=== PATIENT | female | born 1950 | race Two or more races ===

== ENCOUNTER 2021-12-04 07:28 | Inpatient (IN) | payer MEDICARE, OTHER ==
[~2021-12-04] VITALS: Ht 180.3 cm; Wt 74.4 kg
[2021-12-04 11:00] VITALS: BP 97/65
[2021-12-04] MEDS ORDERED: MAG HYDROX/AL HYDROX/SIMETH 30 ML UDC PO PRN (11:00)
[2021-12-04] MEDS ORDERED: BLOOD SUGAR DIAGNOSTIC 1 EACH STRIP IN ONE (11:00)
[2021-12-04] MEDS ORDERED: MAGNESIUM HYDROXIDE 30 ML UDC PO PRN (11:00)
[2021-12-04] MEDS ORDERED: CALC1TAB30 PO (11:07)
[2021-12-04] MEDS ORDERED: VOLTAREN GEL TP (11:07)
[2021-12-04] MEDS ORDERED: BISA-79 PO (11:07)
[2021-12-04] MEDS ORDERED: ERGO500040 PO (11:07)
[2021-12-04] MEDS ORDERED: FAMO20TA8 PO (11:07)
[2021-12-04] MEDS ORDERED: DORZ10DR13 EACHEYE (11:07)
[2021-12-04] MEDS ORDERED: ASPI-1169 PO (11:07)
[2021-12-04] MEDS ORDERED: SIMV20TA2 PO (11:07)
[2021-12-04] MEDS ORDERED: OXYB-58 PO (11:07)
[2021-12-04] MEDS ORDERED: DOCU-141 PO (11:07)
[2021-12-04] MEDS ORDERED: SERT50TA PO (11:07)
[2021-12-04] MEDS ORDERED: THYR60TA2 PO (11:07)
[2021-12-04] MEDS ORDERED: ZOLP5TAB8 PO (11:07)
[2021-12-04] MEDS ORDERED: HYDR-3980 PO (11:07)
[2021-12-04] MEDS ORDERED: OMEP40CA21 PO (11:07)
[2021-12-04] MEDS ORDERED: BRIM5DRO2 OP (11:07)
[2021-12-04] MEDS ORDERED: KETO5DRO83 LEFTEYE (11:07)
[2021-12-04] MEDS ORDERED: FURO-144 PO (11:07)
[2021-12-04] MEDS ORDERED: ESCI20TA PO (11:19)
[2021-12-04] MEDS ORDERED: METF-440 PO (11:19)
[2021-12-04] MEDS ORDERED: LINA145C PO (11:19)
[2021-12-04] MEDS ORDERED: LISI20TA30 PO (11:19)
[2021-12-04] MEDS ORDERED: LORA-259 PO (11:19)
[2021-12-04] MEDS ORDERED: CARV3.12 PO (11:19)
[2021-12-04] MEDS ORDERED: DIVA-78 PO (11:19)
[2021-12-04 11:32] VITALS: BP 97/65
[2021-12-04 16:00] VITALS: BP 111/65
[2021-12-04 19:54] VITALS: BP 104/64
[2021-12-04 20:01] VITALS: BP 104/64
[2021-12-04] MEDS: LORAZEPAM 0.5 MG TABLET PO PRN (20:56)
[2021-12-04] MEDS: ZOLPIDEM TARTRATE 5 MG TABLET PO PRN (23:32)
[2021-12-05 08:00] VITALS: BP 110/65
[2021-12-05] MEDS: LORAZEPAM 0.5 MG TABLET PO PRN (08:08)
[2021-12-05 08:21] LABS: CHOLESTEROL 178 mg/dL (<200); HDL CHOLESTEROL 51 mg/dL (40-60); LDL 106 mg/dL (0-99); TRIGLYCERIDES 98 mg/dL (30-150)
[2021-12-05 09:27] LABS: ALBUMIN 3.2 g/dL (3.4-5.0); BILIRUBIN,TOTAL 0.3 mg/dL (0.2-1.0); CALCIUM, SERUM 8.6 mg/dL (8.5-10.1); CREATININE 0.8 mg/dL (0.6-1.3); POTASSIUM 3.8 mmol/L (3.5-5.1); TOTAL PROTEIN, SERUM 6.5 g/dL (6.4-8.2)
[2021-12-05] MEDS ORDERED: VOLTAREN TP SCH (13:00)
[2021-12-05] MEDS: FUROSEMIDE 40 MG TABLET PO SCH (13:00)
[2021-12-05] MEDS: DIVALPROEX SODIUM 250 MG TABLET.DR PO SCH ×2 (13:01→16:28)
[2021-12-05 16:00] VITALS: BP 127/87
[2021-12-05] MEDS: TIMOLOL MAL/DORZOLAM HCL OPHTH 10 ML BOTTLE EACHEYE SCH (16:27)
[2021-12-05] MEDS: CARVEDILOL 3.125 MG TABLET PO SCH (16:27)
[2021-12-05] MEDS: DOCUSATE SODIUM 100 MG CAPSULE PO SCH (16:28)
[2021-12-05] MEDS: FAMOTIDINE (20 MG) 20 MG TABLET PO SCH (16:28)
[2021-12-05] MEDS: METFORMIN 500 MG TABLET PO SCH (18:22)
[2021-12-05 20:50] VITALS: BP 124/77
[2021-12-05] MEDS: OXYBUTYNIN CHLORIDE ER 5 MG TAB PO SCH (21:34)
[2021-12-05] MEDS: SIMVASTATIN 20 MG TABLET PO SCH (21:34)
[2021-12-05] MEDS: ZOLPIDEM TARTRATE 5 MG TABLET PO PRN (21:50)
[2021-12-05] MEDS ORDERED: Medication Not On Formulary EA (Linaclotide (Linzess) 145 MCG) PO SCH (22:00)
[2021-12-05] MEDS ORDERED: QUETIAPINE FUMARATE 25 MG TABLET PO SCH (22:00)
[2021-12-06 08:00] VITALS: BP 119/80
[2021-12-06] MEDS: CALCIUM CARB 600MG /VIT D 1 EACH TABLET PO SCH (09:00)
[2021-12-06] MEDS: ASPIRIN 81 MG TAB.CHEW PO SCH (09:00)
[2021-12-06] MEDS: METFORMIN 500 MG TABLET PO SCH ×2 (09:00→17:28)
[2021-12-06] MEDS: SERTRALINE HCL 25 MG TABLET PO SCH (09:00)
[2021-12-06] MEDS: PANTOPRAZOLE 40 MG TABLET.DR PO SCH (09:01)
[2021-12-06] MEDS: CARVEDILOL 3.125 MG TABLET PO SCH ×2 (09:01→16:17)
[2021-12-06] MEDS: THYROID 30 MG TABLET PO SCH (09:01)
[2021-12-06] MEDS: FAMOTIDINE (20 MG) 20 MG TABLET PO SCH ×2 (09:02→16:16)
[2021-12-06] MEDS: DOCUSATE SODIUM 100 MG CAPSULE PO SCH ×2 (09:04→16:16)
[2021-12-06] MEDS: DIVALPROEX SODIUM 250 MG TABLET.DR PO SCH ×3 (09:04→16:16)
[2021-12-06] MEDS: TIMOLOL MAL/DORZOLAM HCL OPHTH 10 ML BOTTLE EACHEYE SCH ×3 (09:21→16:25)
[2021-12-06] MEDS: KETOROLAC EYE 0.5% 3 ML BOTTLE OP SCH (09:21)
[2021-12-06] MEDS: LISINOPRIL (20MG) 20 MG TABLET PO SCH (09:54)
[2021-12-06 16:00] VITALS: BP 106/64
[2021-12-06 19:35] VITALS: BP 100/52
[2021-12-06 21:20] VITALS: BP 123/76
[2021-12-06] MEDS: SIMVASTATIN 20 MG TABLET PO SCH (21:34)
[2021-12-06] MEDS: OXYBUTYNIN CHLORIDE ER 5 MG TAB PO SCH (21:34)
[2021-12-06] MEDS: QUETIAPINE FUMARATE 25 MG TABLET PO SCH (21:34)
[2021-12-06] MEDS: TEMAZEPAM 15 MG CAPSULE PO PRN (23:51)
[2021-12-07 08:00] VITALS: BP 101/73
[2021-12-07] MEDS: KETOROLAC EYE 0.5% 3 ML BOTTLE OP SCH (08:20)
[2021-12-07] MEDS: METFORMIN 500 MG TABLET PO SCH ×2 (08:22→17:00)
[2021-12-07] MEDS: THYROID 30 MG TABLET PO SCH (08:22)
[2021-12-07] MEDS: ASPIRIN 81 MG TAB.CHEW PO SCH (08:22)
[2021-12-07] MEDS: CALCIUM CARB 600MG /VIT D 1 EACH TABLET PO SCH (08:22)
[2021-12-07] MEDS: DOCUSATE SODIUM 100 MG CAPSULE PO SCH ×2 (08:22→16:14)
[2021-12-07] MEDS: PANTOPRAZOLE 40 MG TABLET.DR PO SCH (08:22)
[2021-12-07] MEDS: SERTRALINE HCL 25 MG TABLET PO SCH (08:23)
[2021-12-07] MEDS: LISINOPRIL (20MG) 20 MG TABLET PO SCH (08:23)
[2021-12-07] MEDS: FAMOTIDINE (20 MG) 20 MG TABLET PO SCH ×2 (08:23→16:14)
[2021-12-07] MEDS: DIVALPROEX SODIUM 250 MG TABLET.DR PO SCH ×4 (08:23→16:13)
[2021-12-07] MEDS: CARVEDILOL 3.125 MG TABLET PO SCH ×2 (08:29→16:23)
[2021-12-07] MEDS: FUROSEMIDE 40 MG TABLET PO SCH (12:16)
[2021-12-07 16:00] VITALS: BP 131/86
[2021-12-07 20:00] VITALS: BP 91/56
[2021-12-07 20:10] VITALS: BP 91/56
[2021-12-07] MEDS: SIMVASTATIN 20 MG TABLET PO SCH (21:32)
[2021-12-07] MEDS: OXYBUTYNIN CHLORIDE ER 5 MG TAB PO SCH (21:32)
[2021-12-07] MEDS: QUETIAPINE FUMARATE 25 MG TABLET PO SCH (22:09)
[2021-12-07] MEDS: TEMAZEPAM 15 MG CAPSULE PO PRN (23:31)
[2021-12-08] MEDS: PANTOPRAZOLE 40 MG TABLET.DR PO SCH (07:01)
[2021-12-08 08:00] VITALS: BP 112/71
[2021-12-08] MEDS: FAMOTIDINE (20 MG) 20 MG TABLET PO SCH ×2 (08:23→16:43)
[2021-12-08] MEDS: CALCIUM CARB 600MG /VIT D 1 EACH TABLET PO SCH (08:23)
[2021-12-08] MEDS: ASPIRIN 81 MG TAB.CHEW PO SCH (08:23)
[2021-12-08] MEDS: SERTRALINE HCL 25 MG TABLET PO SCH ×3 (08:23→16:44)
[2021-12-08] MEDS: DOCUSATE SODIUM 100 MG CAPSULE PO SCH ×2 (08:23→16:43)
[2021-12-08] MEDS: DIVALPROEX SODIUM 250 MG TABLET.DR PO SCH ×5 (08:23→21:20)
[2021-12-08] MEDS: THYROID 30 MG TABLET PO SCH (08:23)
[2021-12-08] MEDS: METFORMIN 500 MG TABLET PO SCH ×2 (08:23→17:16)
[2021-12-08] MEDS: CARVEDILOL 3.125 MG TABLET PO SCH ×2 (08:23→16:44)
[2021-12-08] MEDS: LISINOPRIL (20MG) 20 MG TABLET PO SCH (08:24)
[2021-12-08] MEDS: KETOROLAC EYE 0.5% 3 ML BOTTLE OP SCH (09:41)
[2021-12-08 16:00] VITALS: BP 96/61
[2021-12-08 20:02] VITALS: BP 111/66
[2021-12-08] MEDS: OXYBUTYNIN CHLORIDE ER 5 MG TAB PO SCH (21:20)
[2021-12-08] MEDS: SIMVASTATIN 20 MG TABLET PO SCH (21:21)
[2021-12-08] MEDS: QUETIAPINE FUMARATE 100 MG TABLET PO SCH (22:08)
[2021-12-08 22:12] VITALS: BP 111/66
[2021-12-08 22:21] VITALS: BP 111/66
[2021-12-09] MEDS: PANTOPRAZOLE 40 MG TABLET.DR PO SCH (07:39)
[2021-12-09] MEDS: METFORMIN 500 MG TABLET PO SCH ×2 (07:39→17:48)
[2021-12-09 08:00] VITALS: BP 106/60
[2021-12-09] MEDS: THYROID 30 MG TABLET PO SCH (08:04)
[2021-12-09] MEDS: DOCUSATE SODIUM 100 MG CAPSULE PO SCH ×2 (08:04→16:37)
[2021-12-09] MEDS: KETOROLAC EYE 0.5% 3 ML BOTTLE OP SCH (08:04)
[2021-12-09] MEDS: SERTRALINE HCL 25 MG TABLET PO SCH ×2 (08:05→16:38)
[2021-12-09] MEDS: LISINOPRIL (20MG) 20 MG TABLET PO SCH (08:05)
[2021-12-09] MEDS: ASPIRIN 81 MG TAB.CHEW PO SCH (08:05)
[2021-12-09] MEDS: DIVALPROEX SODIUM 250 MG TABLET.DR PO SCH ×2 (08:05→20:33)
[2021-12-09] MEDS: FAMOTIDINE (20 MG) 20 MG TABLET PO SCH ×2 (08:05→16:38)
[2021-12-09] MEDS: CARVEDILOL 3.125 MG TABLET PO SCH ×2 (08:06→16:37)
[2021-12-09] MEDS: CALCIUM CARB 600MG /VIT D 1 EACH TABLET PO SCH (08:06)
[2021-12-09] MEDS ORDERED: ERGOCALCIFEROL (VITAMIN D 2) 50,000 UNIT CAPSULE PO SCH (09:00)
[2021-12-09] MEDS: FUROSEMIDE 20 MG TABLET PO SCH (11:50)
[2021-12-09] MEDS ORDERED: FUROSEMIDE 40 MG TABLET PO SCH (12:30)
[2021-12-09 16:00] VITALS: BP 125/72
[2021-12-09] MEDS: ACETAMINOPHEN 325 MG TABLET PO PRN (16:37)
[2021-12-09 20:00] VITALS: BP 135/68
[2021-12-09] MEDS: QUETIAPINE FUMARATE 100 MG TABLET PO SCH (21:52)
[2021-12-09] MEDS: SIMVASTATIN 20 MG TABLET PO SCH (21:52)
[2021-12-09] MEDS: OXYBUTYNIN CHLORIDE ER 5 MG TAB PO SCH (21:52)
[2021-12-10 08:00] VITALS: BP 103/62
[2021-12-10] MEDS: KETOROLAC EYE 0.5% 3 ML BOTTLE OP SCH (08:21)
[2021-12-10] MEDS: PANTOPRAZOLE 40 MG TABLET.DR PO SCH (08:26)
[2021-12-10] MEDS: DIVALPROEX SODIUM 250 MG TABLET.DR PO SCH ×2 (08:26→21:12)
[2021-12-10] MEDS: DOCUSATE SODIUM 100 MG CAPSULE PO SCH ×2 (08:26→17:36)
[2021-12-10] MEDS: SERTRALINE HCL 25 MG TABLET PO SCH ×2 (08:26→17:36)
[2021-12-10] MEDS: THYROID 30 MG TABLET PO SCH (08:26)
[2021-12-10] MEDS: ASPIRIN 81 MG TAB.CHEW PO SCH (08:26)
[2021-12-10] MEDS: FAMOTIDINE (20 MG) 20 MG TABLET PO SCH ×2 (08:26→17:37)
[2021-12-10] MEDS: METFORMIN 500 MG TABLET PO SCH ×2 (08:27→17:37)
[2021-12-10] MEDS: CALCIUM CARB 600MG /VIT D 1 EACH TABLET PO SCH (08:27)
[2021-12-10] MEDS: CARVEDILOL 3.125 MG TABLET PO SCH ×2 (08:36→17:37)
[2021-12-10] MEDS: LISINOPRIL (20MG) 20 MG TABLET PO SCH (08:42)
[2021-12-10] MEDS: FUROSEMIDE 20 MG TABLET PO SCH (08:42)
[2021-12-10] MEDS: LORAZEPAM 0.5 MG TABLET PO PRN (14:12)
[2021-12-10 16:00] VITALS: BP 129/69
[2021-12-10 21:08] VITALS: BP 100/63
[2021-12-10] MEDS: SIMVASTATIN 20 MG TABLET PO SCH (21:12)
[2021-12-10] MEDS: QUETIAPINE FUMARATE 100 MG TABLET PO SCH (21:12)
[2021-12-10] MEDS: OXYBUTYNIN CHLORIDE ER 5 MG TAB PO SCH (21:12)
[2021-12-10] MEDS: ACETAMINOPHEN 325 MG TABLET PO PRN (21:31)
[2021-12-11 08:00] VITALS: BP 126/74
[2021-12-11] MEDS: FAMOTIDINE (20 MG) 20 MG TABLET PO SCH ×2 (08:30→16:24)
[2021-12-11] MEDS: DIVALPROEX SODIUM 250 MG TABLET.DR PO SCH ×2 (08:30→21:02)
[2021-12-11] MEDS: PANTOPRAZOLE 40 MG TABLET.DR PO SCH (08:30)
[2021-12-11] MEDS: METFORMIN 500 MG TABLET PO SCH ×2 (08:30→16:24)
[2021-12-11] MEDS: SERTRALINE HCL 25 MG TABLET PO SCH ×2 (08:31→16:25)
[2021-12-11] MEDS: THYROID 30 MG TABLET PO SCH (08:31)
[2021-12-11] MEDS: KETOROLAC EYE 0.5% 3 ML BOTTLE OP SCH (08:31)
[2021-12-11] MEDS: CALCIUM CARB 600MG /VIT D 1 EACH TABLET PO SCH (08:31)
[2021-12-11] MEDS: ASPIRIN 81 MG TAB.CHEW PO SCH (08:31)
[2021-12-11] MEDS: LISINOPRIL (20MG) 20 MG TABLET PO SCH (08:32)
[2021-12-11] MEDS: FUROSEMIDE 20 MG TABLET PO SCH (08:32)
[2021-12-11] MEDS: DOCUSATE SODIUM 100 MG CAPSULE PO SCH ×2 (08:32→16:24)
[2021-12-11] MEDS: CARVEDILOL 3.125 MG TABLET PO SCH ×2 (08:32→16:24)
[2021-12-11] MEDS: LORAZEPAM 0.5 MG TABLET PO PRN (16:24)
[2021-12-11] MEDS: ACETAMINOPHEN 325 MG TABLET PO PRN (18:17)
[2021-12-11 20:00] VITALS: BP 105/64
[2021-12-11 20:22] VITALS: BP 105/69
[2021-12-11] MEDS: SIMVASTATIN 20 MG TABLET PO SCH (21:02)
[2021-12-11] MEDS: QUETIAPINE FUMARATE 100 MG TABLET PO SCH (21:02)
[2021-12-11] MEDS: OXYBUTYNIN CHLORIDE ER 5 MG TAB PO SCH (21:02)
[2021-12-12] MEDS: PANTOPRAZOLE 40 MG TABLET.DR PO SCH (07:01)
[2021-12-12 08:00] VITALS: BP 138/72
[2021-12-12] MEDS: KETOROLAC EYE 0.5% 3 ML BOTTLE OP SCH (08:18)
[2021-12-12] MEDS: DIVALPROEX SODIUM 250 MG TABLET.DR PO SCH ×2 (08:26→21:07)
[2021-12-12] MEDS: DOCUSATE SODIUM 100 MG CAPSULE PO SCH ×2 (08:26→16:26)
[2021-12-12] MEDS: METFORMIN 500 MG TABLET PO SCH ×2 (08:26→16:26)
[2021-12-12] MEDS: SERTRALINE HCL 25 MG TABLET PO SCH ×2 (08:27→16:26)
[2021-12-12] MEDS: FAMOTIDINE (20 MG) 20 MG TABLET PO SCH ×2 (08:27→16:27)
[2021-12-12] MEDS: THYROID 30 MG TABLET PO SCH (08:27)
[2021-12-12] MEDS: FUROSEMIDE 20 MG TABLET PO SCH (08:27)
[2021-12-12] MEDS: CALCIUM CARB 600MG /VIT D 1 EACH TABLET PO SCH (08:27)
[2021-12-12] MEDS: LISINOPRIL (20MG) 20 MG TABLET PO SCH (08:28)
[2021-12-12] MEDS: CARVEDILOL 3.125 MG TABLET PO SCH ×2 (08:28→16:01)
[2021-12-12] MEDS: ASPIRIN 81 MG TAB.CHEW PO SCH (08:28)
[2021-12-12 16:00] VITALS: BP 100/60
[2021-12-12 20:11] VITALS: BP 101/52
[2021-12-12] MEDS: QUETIAPINE FUMARATE 100 MG TABLET PO SCH (21:06)
[2021-12-12] MEDS: OXYBUTYNIN CHLORIDE ER 5 MG TAB PO SCH (21:07)
[2021-12-12] MEDS: SIMVASTATIN 20 MG TABLET PO SCH (21:07)
[2021-12-12] MEDS: ACETAMINOPHEN 325 MG TABLET PO PRN (22:05)
[2021-12-12] MEDS: TEMAZEPAM 15 MG CAPSULE PO PRN (23:53)
[2021-12-13] MEDS: PANTOPRAZOLE 40 MG TABLET.DR PO SCH (06:50)
[2021-12-13 08:00] VITALS: BP 102/59
[2021-12-13] MEDS: DOCUSATE SODIUM 100 MG CAPSULE PO SCH ×2 (08:42→17:16)
[2021-12-13] MEDS: SERTRALINE HCL 25 MG TABLET PO SCH ×2 (08:42→17:16)
[2021-12-13] MEDS: CALCIUM CARB 600MG /VIT D 1 EACH TABLET PO SCH (08:48)
[2021-12-13] MEDS: METFORMIN 500 MG TABLET PO SCH ×2 (08:48→17:16)
[2021-12-13] MEDS: CARVEDILOL 3.125 MG TABLET PO SCH ×2 (08:49→17:00)
[2021-12-13] MEDS: THYROID 30 MG TABLET PO SCH (08:49)
[2021-12-13] MEDS: ASPIRIN 81 MG TAB.CHEW PO SCH (08:49)
[2021-12-13] MEDS: DIVALPROEX SODIUM 250 MG TABLET.DR PO SCH ×2 (08:49→21:17)
[2021-12-13] MEDS: LISINOPRIL (20MG) 20 MG TABLET PO SCH (08:50)
[2021-12-13] MEDS: FUROSEMIDE 20 MG TABLET PO SCH (08:50)
[2021-12-13] MEDS: FAMOTIDINE (20 MG) 20 MG TABLET PO SCH ×2 (08:59→17:16)
[2021-12-13] MEDS: KETOROLAC EYE 0.5% 3 ML BOTTLE OP SCH (09:00)
[2021-12-13] MEDS: GABAPENTIN 100 MG CAPSULE PO SCH ×3 (09:27→17:16)
[2021-12-13 16:00] VITALS: BP 107/71
[2021-12-13] MEDS: ACETAMINOPHEN 325 MG TABLET PO PRN (18:37)
[2021-12-13] MEDS: LORAZEPAM 0.5 MG TABLET PO PRN (19:47)
[2021-12-13 19:50] VITALS: BP 114/61
[2021-12-13 20:16] VITALS: BP 114/61
[2021-12-13] MEDS: OXYBUTYNIN CHLORIDE ER 5 MG TAB PO SCH (21:21)
[2021-12-13] MEDS: SIMVASTATIN 20 MG TABLET PO SCH (21:21)
[2021-12-13] MEDS: QUETIAPINE FUMARATE 100 MG TABLET PO SCH (22:08)
[2021-12-14 08:00] VITALS: BP 121/68
[2021-12-14] MEDS: KETOROLAC EYE 0.5% 3 ML BOTTLE OP SCH (08:26)
[2021-12-14] MEDS: GABAPENTIN 100 MG CAPSULE PO SCH ×3 (08:30→16:35)
[2021-12-14] MEDS: METFORMIN 500 MG TABLET PO SCH ×2 (08:30→17:02)
[2021-12-14] MEDS: SERTRALINE HCL 25 MG TABLET PO SCH ×2 (08:31→16:36)
[2021-12-14] MEDS: CALCIUM CARB 600MG /VIT D 1 EACH TABLET PO SCH (08:31)
[2021-12-14] MEDS: DOCUSATE SODIUM 100 MG CAPSULE PO SCH ×2 (08:31→16:35)
[2021-12-14] MEDS: FAMOTIDINE (20 MG) 20 MG TABLET PO SCH ×2 (08:31→16:35)
[2021-12-14] MEDS: ASPIRIN 81 MG TAB.CHEW PO SCH (08:31)
[2021-12-14] MEDS: PANTOPRAZOLE 40 MG TABLET.DR PO SCH (08:31)
[2021-12-14] MEDS: THYROID 30 MG TABLET PO SCH (08:31)
[2021-12-14] MEDS: CARVEDILOL 3.125 MG TABLET PO SCH ×2 (08:32→16:36)
[2021-12-14] MEDS: FUROSEMIDE 20 MG TABLET PO SCH (08:32)
[2021-12-14] MEDS: DIVALPROEX SODIUM 250 MG TABLET.DR PO SCH ×2 (08:32→20:51)
[2021-12-14] MEDS: LISINOPRIL (20MG) 20 MG TABLET PO SCH (08:33)
[2021-12-14 11:21] LABS: CALCIUM, SERUM 8.6 mg/dL (8.5-10.1); CREATININE 0.9 mg/dL (0.6-1.3); POTASSIUM 3.8 mmol/L (3.5-5.1)
[2021-12-14 16:00] VITALS: BP 116/73
[2021-12-14 20:00] VITALS: BP 100/71
[2021-12-14] MEDS: QUETIAPINE FUMARATE 100 MG TABLET PO SCH (21:32)
[2021-12-14] MEDS: SIMVASTATIN 20 MG TABLET PO SCH (21:32)
[2021-12-14] MEDS: OXYBUTYNIN CHLORIDE ER 5 MG TAB PO SCH (21:32)
[2021-12-14] MEDS: TEMAZEPAM 15 MG CAPSULE PO PRN (22:39)
[2021-12-15 08:00] VITALS: BP 110/62
[2021-12-15] MEDS: METFORMIN 500 MG TABLET PO SCH ×2 (08:30→17:02)
[2021-12-15] MEDS: SERTRALINE HCL 25 MG TABLET PO SCH ×2 (08:30→17:02)
[2021-12-15] MEDS: DOCUSATE SODIUM 100 MG CAPSULE PO SCH ×2 (08:30→17:02)
[2021-12-15] MEDS: CALCIUM CARB 600MG /VIT D 1 EACH TABLET PO SCH (08:30)
[2021-12-15] MEDS: DIVALPROEX SODIUM 250 MG TABLET.DR PO SCH ×2 (08:30→21:04)
[2021-12-15] MEDS: ASPIRIN 81 MG TAB.CHEW PO SCH (08:30)
[2021-12-15] MEDS: GABAPENTIN 100 MG CAPSULE PO SCH ×4 (08:30→21:04)
[2021-12-15] MEDS: THYROID 30 MG TABLET PO SCH (08:31)
[2021-12-15] MEDS: PANTOPRAZOLE 40 MG TABLET.DR PO SCH (08:31)
[2021-12-15] MEDS: CARVEDILOL 3.125 MG TABLET PO SCH ×2 (08:32→17:00)
[2021-12-15] MEDS: LISINOPRIL (20MG) 20 MG TABLET PO SCH (08:32)
[2021-12-15] MEDS: FAMOTIDINE (20 MG) 20 MG TABLET PO SCH ×2 (08:32→17:02)
[2021-12-15] MEDS: FUROSEMIDE 20 MG TABLET PO SCH (08:32)
[2021-12-15] MEDS: KETOROLAC EYE 0.5% 3 ML BOTTLE OP SCH (09:35)
[2021-12-15] MEDS ORDERED: diphenhydrAMINE HCL 50 MG CAPSULE PO PRN (11:00)
[2021-12-15 16:00] VITALS: BP 103/55
[2021-12-15] MEDS: LORAZEPAM 0.5 MG TABLET PO PRN (19:48)
[2021-12-15 20:00] VITALS: BP 124/70
[2021-12-15] MEDS: QUETIAPINE FUMARATE 100 MG TABLET PO SCH (21:32)
[2021-12-15] MEDS: OXYBUTYNIN CHLORIDE ER 5 MG TAB PO SCH (21:32)
[2021-12-15] MEDS: SIMVASTATIN 20 MG TABLET PO SCH (21:33)
[2021-12-16 08:00] VITALS: BP 108/56
[2021-12-16] MEDS: METFORMIN 500 MG TABLET PO SCH ×2 (08:13→17:23)
[2021-12-16] MEDS: PANTOPRAZOLE 40 MG TABLET.DR PO SCH (08:13)
[2021-12-16] MEDS: DIVALPROEX SODIUM 250 MG TABLET.DR PO SCH ×2 (08:14→21:16)
[2021-12-16] MEDS: DOCUSATE SODIUM 100 MG CAPSULE PO SCH ×2 (08:14→16:38)
[2021-12-16] MEDS: CALCIUM CARB 600MG /VIT D 1 EACH TABLET PO SCH (08:15)
[2021-12-16] MEDS: GABAPENTIN 100 MG CAPSULE PO SCH ×4 (08:15→21:15)
[2021-12-16] MEDS: ASPIRIN 81 MG TAB.CHEW PO SCH (08:16)
[2021-12-16] MEDS: THYROID 30 MG TABLET PO SCH (08:16)
[2021-12-16] MEDS: FAMOTIDINE (20 MG) 20 MG TABLET PO SCH ×2 (08:16→16:38)
[2021-12-16] MEDS: SERTRALINE HCL 25 MG TABLET PO SCH ×2 (08:16→16:38)
[2021-12-16] MEDS ORDERED: ERGOCALCIFEROL (VITAMIN D 2) 50,000 UNIT CAPSULE PO SCH ×2 (08:18→08:30)
[2021-12-16] MEDS: CARVEDILOL 3.125 MG TABLET PO SCH ×2 (08:19→16:38)
[2021-12-16] MEDS: LISINOPRIL (20MG) 20 MG TABLET PO SCH (08:19)
[2021-12-16] MEDS: FUROSEMIDE 20 MG TABLET PO SCH (08:19)
[2021-12-16] MEDS: KETOROLAC EYE 0.5% 3 ML BOTTLE OP SCH (08:20)
[2021-12-16] MEDS ORDERED: DIVA250T4 PO (10:58)
[2021-12-16] MEDS ORDERED: DIPH50CA37 PO (10:58)
[2021-12-16] MEDS ORDERED: SERT25TA5 PO (10:58)
[2021-12-16] MEDS ORDERED: Quetiapine Fumarate PO (10:58)
[2021-12-16] MEDS ORDERED: GABA100C PO (10:58)
[2021-12-16] MEDS: LORAZEPAM 0.5 MG TABLET PO PRN ×2 (13:25→22:26)
[2021-12-16 16:00] VITALS: BP 113/67
[2021-12-16 20:00] VITALS: BP 101/60
[2021-12-16] MEDS: SIMVASTATIN 20 MG TABLET PO SCH (21:15)
[2021-12-16] MEDS: QUETIAPINE FUMARATE 100 MG TABLET PO SCH (21:16)
[2021-12-16] MEDS: OXYBUTYNIN CHLORIDE ER 5 MG TAB PO SCH (21:16)
[2021-12-16] MEDS: ACETAMINOPHEN 325 MG TABLET PO PRN (21:20)
[2021-12-17] MEDS: PANTOPRAZOLE 40 MG TABLET.DR PO SCH (07:59)
[2021-12-17 08:00] VITALS: BP 103/61
[2021-12-17] MEDS: METFORMIN 500 MG TABLET PO SCH ×2 (08:00→17:07)
[2021-12-17] MEDS: CALCIUM CARB 600MG /VIT D 1 EACH TABLET PO SCH (08:14)
[2021-12-17] MEDS: THYROID 30 MG TABLET PO SCH (08:14)
[2021-12-17] MEDS: SERTRALINE HCL 25 MG TABLET PO SCH ×2 (08:14→16:13)
[2021-12-17] MEDS: GABAPENTIN 100 MG CAPSULE PO SCH ×4 (08:15→21:12)
[2021-12-17] MEDS: FAMOTIDINE (20 MG) 20 MG TABLET PO SCH ×2 (08:15→16:14)
[2021-12-17] MEDS: ASPIRIN 81 MG TAB.CHEW PO SCH (08:15)
[2021-12-17] MEDS: FUROSEMIDE 20 MG TABLET PO SCH (08:15)
[2021-12-17] MEDS: DOCUSATE SODIUM 100 MG CAPSULE PO SCH ×2 (08:15→16:13)
[2021-12-17] MEDS: CARVEDILOL 3.125 MG TABLET PO SCH ×2 (08:15→16:14)
[2021-12-17] MEDS: DIVALPROEX SODIUM 250 MG TABLET.DR PO SCH ×2 (08:15→21:13)
[2021-12-17] MEDS: LISINOPRIL (20MG) 20 MG TABLET PO SCH (08:16)
[2021-12-17] MEDS: KETOROLAC EYE 0.5% 3 ML BOTTLE OP SCH (09:39)
[2021-12-17 16:00] VITALS: BP 116/70
[2021-12-17 19:40] VITALS: BP 102/57
[2021-12-17 19:54] VITALS: BP 102/57
[2021-12-17] MEDS: OXYBUTYNIN CHLORIDE ER 5 MG TAB PO SCH (21:35)
[2021-12-17] MEDS: SIMVASTATIN 20 MG TABLET PO SCH (21:36)
[2021-12-17] MEDS: QUETIAPINE FUMARATE 100 MG TABLET PO SCH (22:07)
[2021-12-18 08:00] VITALS: BP 126/78
[2021-12-18] MEDS: THYROID 30 MG TABLET PO SCH (08:42)
[2021-12-18] MEDS: FUROSEMIDE 20 MG TABLET PO SCH (08:42)
[2021-12-18] MEDS: DIVALPROEX SODIUM 250 MG TABLET.DR PO SCH (08:42)
[2021-12-18] MEDS: PANTOPRAZOLE 40 MG TABLET.DR PO SCH (08:42)
[2021-12-18] MEDS: GABAPENTIN 100 MG CAPSULE PO SCH ×2 (08:42→12:51)
[2021-12-18] MEDS: DOCUSATE SODIUM 100 MG CAPSULE PO SCH (08:43)
[2021-12-18] MEDS: FAMOTIDINE (20 MG) 20 MG TABLET PO SCH (08:43)
[2021-12-18] MEDS: CARVEDILOL 3.125 MG TABLET PO SCH (08:44)
[2021-12-18] MEDS: SERTRALINE HCL 25 MG TABLET PO SCH (08:44)
[2021-12-18] MEDS: CALCIUM CARB 600MG /VIT D 1 EACH TABLET PO SCH (08:44)
[2021-12-18] MEDS: ASPIRIN 81 MG TAB.CHEW PO SCH (08:45)
[2021-12-18] MEDS: KETOROLAC EYE 0.5% 3 ML BOTTLE OP SCH (08:45)
[2021-12-18] MEDS: METFORMIN 500 MG TABLET PO SCH (08:45)
[2021-12-18 08:46] VITALS: BP 126/78
[2021-12-18] MEDS: LISINOPRIL (20MG) 20 MG TABLET PO SCH (08:46)
== END 2021-12-18 15:30 | disposition home or self-care (01) | DRG 885 ==
LOC: GPS 10:21
PROVIDERS: ADMIT Psychiatry & Neurology Psychiatry
DX: F31.5 Bipolar disorder, current episode depressed, severe, with psychotic features (principal); E44.1 Mild protein-calorie malnutrition; R45.851 Suicidal ideations; E78.5 Hyperlipidemia, unspecified; E03.9 Hypothyroidism, unspecified; K21.9 Gastro-esophageal reflux disease without esophagitis; T42.6X1D Poisoning by other antiepileptic and sedative-hypnotic drugs, accidental (unintentional), subsequent encounter; Z79.899 Other long term (current) drug therapy; E11.9 Type 2 diabetes mellitus without complications; I50.9 Heart failure, unspecified; F41.9 Anxiety disorder, unspecified; G89.29 Other chronic pain; E88.09 Other disorders of plasma-protein metabolism, not elsewhere classified; Z86.73 Personal history of transient ischemic attack (TIA), and cerebral infarction without residual deficits; R25.8 Other abnormal involuntary movements; Z86.59 Personal history of other mental and behavioral disorders; F29 Unspecified psychosis not due to a substance or known physiological condition; R60.0 Localized edema; F60.9 Personality disorder, unspecified; G31.84 Mild cognitive impairment of uncertain or unknown etiology
CPT/HCPCS: 36415; 70450-TC; 80048-TC; 80053-TC; 80061-TC; 80164-TC; 87081-TC; 93971-TC

== ENCOUNTER 2022-08-25 23:54 | Inpatient (IN) | payer MEDICARE, OTHER ==
[~2022-08-25] VITALS: Ht 154.9 cm; Wt 79.8 kg
[~2022-08-25 23:54] MED LIST: ASPI-1169 PO; BISA-79 PO; BRIM5DRO2 OP; CALC1TAB30 PO; CARV3.12 PO; DOCU-141 PO; DORZ10DR13 EACHEYE; ERGO500040 PO; FAMO20TA8 PO; FURO-144 PO; HYDR-3980 PO; KETO5DRO83 LEFTEYE; LINA145C PO; LISI20TA30 PO; LORA-259 PO; METF-440 PO; OMEP40CA21 PO; OXYB-58 PO; SIMV20TA2 PO; THYR60TA2 PO; VOLTAREN GEL TP
--- NOTE | 2022-08-26 02:12 | NUR ---
BIBSELF C/O +SI FOR THE PAST FEW WEEKS WITH NO SPECIFIC PLAN . PT A/O3. TOLERATING R/A WELL WITH NO RESP DISTRESS. SAFETY MEASURES IN PLACE. SITTER AT PT'S BEDSIDE.
[2022-08-26 04:07] LABS: BILIRUBIN,URINE NEGATIVE (NEGATIVE); LEUKOCYTE ESTERASE ,URINE TRACE (NEGATIVE); NITRITE, URINE NEGATIVE (NEGATIVE); PROTEIN,URINE NEGATIVE (NEGATIVE); UGLUCOSE NEGATIVE (NEGATIVE); UROBILINOGEN,URINE 0.2 EU/dL (0.2)
[2022-08-26 04:08] LABS: COLOR,URINE LIGHT YELLOW (YELLOW)
--- NOTE | 2022-08-26 04:13 | NUR ---
BUSINESS ACCOUNT SPECIALIST & RN AT PT'S BEDSIDE FOR BLOOD DRAW
[2022-08-26 04:19] LABS: BASOPHILS % (AUTO) 0.5 % (0.0-2.0); EOSINOPHILS % (AUTO) 2.1 % (0.0-6.0); HEMATOCRIT 39 % (33-45); HEMOGLOBIN 12.9 g/dL (11.5-14.8); LYMPHOCYTES # (AUTO) 2.3 K/uL (0.8-4.8); LYMPHOCYTES % (AUTO) 37.1 % (20.0-44.0); MEAN CORPUSCULAR HGB CONC 33 g/dl (31.0-36.0); MEAN CORPUSCULAR VOLUME 93 fL (82-100); MONOCYTES # (AUTO) 0.6 K/uL (0.1-1.30); MONOCYTES % (AUTO) 10.4 % (2.0-12.0); NEUTROPHILS # (AUTO) 3.1 K/uL (1.8-8.9); NEUTROPHILS % (AUTO) 49.9 % (43.0-81.0); PLATELET COUNT (AUTO) 217 K/uL (150-450); RED BLOOD CELL COUNT(AUTO) 4.16 MIL/uL (4.0-5.2); WHITE BLOOD COUNT (AUTO) 6.1 K/uL (4.3-11.0)
[2022-08-26 04:32] LABS: CALCIUM, SERUM 9.4 mg/dL (8.5-10.1); CARBON DIOXIDE 27 mmol/L (21-32); CHLORIDE 103 mmol/L (98-107); CREATININE 0.9 mg/dL (0.6-1.3); GLUCOSE 116 mg/dL (74-106); POTASSIUM 3.9 mmol/L (3.5-5.1); SODIUM SERUM 136 mmol/L (136-145); UREA NITROGEN, BLOOD 18 mg/dL (7-18)
[2022-08-26 04:38] LABS: ALANINE AMINOTRANSFERASE 23 U/L (12-78); ALBUMIN 3.8 g/dL (3.4-5.0); ALCOHOL, BLOOD < 3 mg/dL (0-0); ALKALINE PHOSPHATASE 65 U/L (46-116); ASPARTATE AMINOTRANSFERASE 14 U/L (15-37); BILIRUBIN,DIRECT 0.1 mg/dL (0.0-0.2); BILIRUBIN,TOTAL 0.2 mg/dL (0.2-1.0); TOTAL PROTEIN, SERUM 7.4 g/dL (6.4-8.2)
[2022-08-26 04:39] LABS: ACETAMINOPHEN 0 ug/ml (10-30)
[2022-08-26 06:54] LABS: BACTERIA,URINE Rare /HPF (None Seen); RBC,URINE NONE SEEN /HPF (0-2); SQUAMOUS EPITHELIAL CELL,UR None Seen /HPF (None Seen); WBC,URINE 0-2 /HPF (0-3)
--- NOTE | 2022-08-26 08:45 | NUR ---
SW left Intake [id number] a voicemail about possibly admitting this pt. to [facility] or [facility]. AYANA also faxed clinicals to [facility] TEL:[phone] fax:[phone] for voluntary psychiatric treatment at [facility] [[address] [place] [address] FAX:[phone]].
--- NOTE | 2022-08-26 10:16 | NUR ---
SS supervisor poultry hatchery, Adali Chatman notified this SW that pt. may possibly be admitted to [facility]. SW called and notified RNKhanh to intitiate transfer. Pt will be admitted on a volutary basis.
--- NOTE | 2022-08-26 11:06 | NUR ---
GOT BED 215-B
[2022-08-26] MEDS ORDERED: QUET200T PO (11:50)
[2022-08-26] MEDS ORDERED: DIVA500T2 PO (11:50)
[2022-08-26] MEDS ORDERED: SERT25TA PO (11:50)
[2022-08-26] MEDS ORDERED: GABA-532 PO (11:50)
[2022-08-26] MEDS ORDERED: KETO5DRO RIGHTEYE (11:50)
--- NOTE | 2022-08-26 12:05 | NUR ---
RN-NOTES [facility] ER STAFF BROUGHT THE PATIENT IN THE UNIT VIA WHEEL CHAIR ,AWAKE A/O X3 ,NO ACUTE DISTRESS NOTED. PATIENT ON VOLUNTARY STATUS. UPON FACE TO FACE ASSESSMENT,PATIENT STATED HAVING SUICIDAL IDEATION BUT NO SPECIFIC PLAN, DEPRESSED , ANXIOUS AND SHE WANTS MEDICATION ADJUSTMENT. CONTRABAND AND BELONGINGS INVENTORIED. VITAL SIGN TAKEN AND ORIENTED IN THE ROOM AND UNIT POLICIES. SKIN ASSESSMENT DONE. PATIENT'S BROTHER ARLYN MADE AWARE OF THE ADMISSION.
--- NOTE | 2022-08-26 12:17 | NUR ---
TRANSFERRED TO BED 215 IN STABLE CONDITION
[2022-08-26] MEDS ORDERED: MAG HYDROX/AL HYDROX/SIMETH 30 ML UDC PO PRN (12:30)
[2022-08-26] MEDS ORDERED: ACETAMINOPHEN 325 MG TABLET PO PRN (12:30)
[2022-08-26] MEDS ORDERED: BLOOD SUGAR DIAGNOSTIC 1 EACH STRIP IN ONE (12:30)
[2022-08-26 12:47] VITALS: BP 118/71
--- NOTE | 2022-08-26 13:26 | NUR ---
AYANA Initial Discharge Note: Patient currently resides at home located at [id number] [place] [address]; ([phone]). Patient stated that she has a caregiver at home. Patient would want to return back home upon discharge. AYANA will work with the MD, family, and treatment team to help coordinate appropriate discharge.
--- NOTE | 2022-08-26 13:26 | NUR ---
AYANA Clinical Note: Pt brought to the [facility] unit as voluntary status. Pt brought herself to the hospital because of suicidal ideation. She reports that she "mixed her medications". Patient currently resides at home located at [address] [place] [address]; ([phone]). Patient stated that she has a caregiver at home. Patient would want to return back home upon discharge.
--- NOTE | 2022-08-26 13:27 | NUR ---
Treatment Plan: Pt refused to sign treatment plan due to pt being labile and suspicious.
--- NOTE | 2022-08-26 13:35 | NUR ---
AYANA Family Contact: AYANA contacted pt's brother Adrian ([phone]) and notified of pt's admission. AYANA discussed treatment/discharge plan. He shared that she has a caregiver at home Bonnie ([phone]). Pt will be returning back home when stable.
[2022-08-26] MEDS ORDERED: DEXTROSE 50%-WATER 50 ML DISP.SYRIN IV PRN (14:00)
[2022-08-26] MEDS ORDERED: INSULIN REGULAR, HUMAN 100 UNIT/ML 3 ML VIAL SQ PRN (14:00)
[2022-08-26 16:00] VITALS: BP 130/86
[2022-08-26] MEDS: KETOROLAC EYE 0.5% 3 ML BOTTLE RIGHTEYE SCH (17:00)
[2022-08-26] MEDS: DOCUSATE SODIUM 100 MG CAPSULE PO SCH (17:30)
[2022-08-26] MEDS: BLOOD SUGAR DIAGNOSTIC 1 EACH STRIP IN SCH ×2 (17:31→21:11)
[2022-08-26] MEDS: GABAPENTIN 100 MG CAPSULE PO SCH (17:31)
[2022-08-26] MEDS: FAMOTIDINE (20 MG) 20 MG TABLET PO SCH (17:31)
[2022-08-26] MEDS: PANTOPRAZOLE 40 MG TABLET.DR PO SCH (17:31)
[2022-08-26] MEDS: METFORMIN 500 MG TABLET PO SCH (17:31)
[2022-08-26] MEDS: CARVEDILOL 3.125 MG TABLET PO SCH (17:31)
--- NOTE | 2022-08-26 19:03 | NUR ---
RN-NOTES PATIENT IN BED INTERMITTENTLY SLEEPING,EASILY AROUSED A/O X3, NO ACUTE DISTRESS NOTED. COMPLIANT WITH MEDICATIONS. ABLE TO MAKE NEEDS KNOWN TO THE STAFF AMBULATORY STEADY GAIT.WILL CONT. MONITORING FOR SAFETY AND BEHAVIOR. WILL ENDORSE TO INCOMING NURSE FOR CONTINUITY OF CARE.
[2022-08-26 20:00] VITALS: BP 138/81
[2022-08-26] MEDS: OXYBUTYNIN CHLORIDE ER 5 MG TAB PO SCH (21:10)
[2022-08-26] MEDS: ZOLPIDEM TARTRATE 5 MG TABLET PO PRN (21:11)
--- NOTE | 2022-08-26 21:11 | NUR ---
NURSE NOTE: PT UNABLE TO SLEEP AT THIS TIME, REQUESTED AMBIEN. AMBIEN ADMINISTERED ORDERED. PT TOLERATED WELL. WILL CONT TO MONITOR.
[2022-08-26] MEDS ORDERED: DIVALPROEX SODIUM 500 MG TABLET.DR PO SCH (22:00)
--- NOTE | 2022-08-26 22:11 | NUR ---
NURSE NOTE: PT SLEEPING AT THIS TIME. DOE EFFECTIVE. WILL CONT TO MONITOR.
[2022-08-26] MEDS: LORAZEPAM 0.5 MG TABLET PO PRN (23:06)
--- NOTE | 2022-08-26 23:10 | NUR ---
NURSE NOTE: PT WOKE UP. ANXIOUS AT THIS TIME. TRIED TO CALM DOWN, BUT UNABLE TO. ATIVAN ADMINISTERED ORDERED PER PT'S REQUEST. MARYCARMEN WELL. WILL CONT TO MONITOR.
--- NOTE | 2022-08-26 23:44 | NUR ---
NURSE NOTE: PT SLEEPING AT THIS TIME. NO S/S OF ANXIETY. ATIVAN AFFECTIVE AT THIS TIME. WILL CONT TO MONITOR.
[2022-08-27] MEDS: BLOOD SUGAR DIAGNOSTIC 1 EACH STRIP IN SCH ×4 (07:52→21:18)
[2022-08-27] MEDS: THYROID 30 MG TABLET PO SCH (07:53)
[2022-08-27 08:00] VITALS: BP 113/72
[2022-08-27] MEDS: SIMVASTATIN 20 MG TABLET PO SCH (08:40)
[2022-08-27] MEDS: CALCIUM CARB 600MG /VIT D 1 EACH TABLET PO SCH (08:41)
[2022-08-27] MEDS: CARVEDILOL 3.125 MG TABLET PO SCH ×2 (08:41→17:00)
[2022-08-27] MEDS: ASPIRIN 81 MG TAB.CHEW PO SCH (08:41)
[2022-08-27] MEDS: FAMOTIDINE (20 MG) 20 MG TABLET PO SCH ×2 (08:41→17:08)
[2022-08-27] MEDS: DOCUSATE SODIUM 100 MG CAPSULE PO SCH ×3 (08:41→17:00)
[2022-08-27] MEDS: GABAPENTIN 100 MG CAPSULE PO SCH ×3 (08:42→17:08)
[2022-08-27] MEDS: METFORMIN 500 MG TABLET PO SCH ×3 (08:42→17:08)
[2022-08-27] MEDS: LISINOPRIL (20MG) 20 MG TABLET PO SCH (08:42)
[2022-08-27] MEDS: PANTOPRAZOLE 40 MG TABLET.DR PO SCH (08:42)
[2022-08-27] MEDS: KETOROLAC EYE 0.5% 3 ML BOTTLE RIGHTEYE SCH ×4 (09:00→17:00)
--- NOTE | 2022-08-27 09:50 | NUR ---
RN Notes: Received pt. awake in bed, responsive to staffs and hyperverbal. Ate 100% for breakfast, refused colace and said it doesn't work and compliant on the rest of the meds. Pt. is needy, demanding and disorganized and denies being suicidal and homicidal at this time. Encouraged to verbalize feelings and motivated to attend group activity and encouraged to take shower. Needs attended and will continue to monitor for safety.
--- NOTE | 2022-08-27 11:25 | NUR ---
Dr. Martínez ordered to D/C protonix po.
[2022-08-27 13:07] LABS: CREATININE 0.9 mg/dL (0.6-1.3)
[2022-08-27 13:42] LABS: ALBUMIN 3.6 g/dL (3.4-5.0); BILIRUBIN,TOTAL 0.2 mg/dL (0.2-1.0); CALCIUM, SERUM 9.2 mg/dL (8.5-10.1); CREATININE 0.9 mg/dL (0.6-1.3); POTASSIUM 4.1 mmol/L (3.5-5.1); TOTAL PROTEIN, SERUM 7.4 g/dL (6.4-8.2)
[2022-08-27 13:55] LABS: CHOLESTEROL 182 mg/dL (<200); HDL CHOLESTEROL 61 mg/dL (40-60); LDL 87 mg/dL (0-99); TRIGLYCERIDES 165 mg/dL (30-150)
[2022-08-27 16:00] VITALS: BP 109/51
[2022-08-27] MEDS ORDERED: PRED5DRO17 RIGHTEYE (16:34)
[2022-08-27] MEDS ORDERED: CARB15DR OP (16:39)
[2022-08-27] MEDS: SERTRALINE HCL 25 MG TABLET PO SCH (17:08)
--- NOTE | 2022-08-27 18:21 | NUR ---
Dr. Martínez gave an order of Linzess 145 mcg po HS as needed, Prednisolone Acetate ophthalmic 1%, 1 drop TID on right eye and Refresh Tears 1 drop on both eyes BID.
--- NOTE | 2022-08-27 19:30 | NUR ---
[facility] RN NOTE, RECEIVED PATIENT AWAKE AND IN RAMONA CHAIR, NO S/S OR COMPLAINTS OF PAIN AT THIS TIME. PATIENT IS DISPLAYING NO S/S OF APPARENT DISTRESS AT THIS TIME. PATIENT BREATHING IS UNLABORED WITH EQUAL RISE AND FALL OF THE CHEST. PATIENT IS ALERT AND ORIENTED X 2 ON ROOM AIR WITH A SPO2 98%. PATIENT IS COMPLIANT WITH MEDICATIONS, ANXIOUS, DEMANDING, EASILY IRRITABLE, PARANOID, DISORGANIZED, AND COOPERATIVE. PATIENT DENIES SUICIDAL AND HOMICIDAL IDEATIONS AT THIS TIME. PATIENT ASSISTED WITH TURNING AND REPOSITIONING Q2HR AND PRN FOR COMFORT AND CIRCULATION. PATIENT HAS NO NEEDS AT THIS TIME. PATIENT EDUCATED ON THE USE OF THE CALL RHOADES. PATIENT BED SIDE RAILS UP X 2 FOR SAFETY. PATIENT BED IS LOCKED, LOW, WITH BED ALARM ON. WILL CONTINUE TO MONITOR THIS PATIENT Q15 MINUTES WITH THE HELP OF STAFF TO MAINTAIN SAFETY.
[2022-08-27 21:02] VITALS: BP 107/72
[2022-08-27] MEDS: QUETIAPINE FUMARATE 100 MG TABLET PO SCH (21:13)
[2022-08-27] MEDS: ZOLPIDEM TARTRATE 5 MG TABLET PO PRN (21:13)
[2022-08-27] MEDS: OXYBUTYNIN CHLORIDE ER 5 MG TAB PO SCH (21:13)
[2022-08-27] MEDS: DIVALPROEX SODIUM 250 MG TABLET.DR PO SCH (21:13)
--- NOTE | 2022-08-27 21:13 | NUR ---
[facility] RN NOTE, PATIENT HAS A COMPLAINT OF NOT BEING ABLE TO SLEEP AND IS REQUESTING AMBIEN AT THIS TIME. PATIENT VITAL SIGNS ARE STABLE. GAVE AMBIEN 5MG PO HS PRN ORDERED. WILL REASSESS OF INSOMNIA AND I WILL CONTINUE TO MONITOR THIS PATIENT WITH THE HELP OF STAFF.
[2022-08-27] MEDS: LINZESS 145 MCG PO PRN (21:14)
--- NOTE | 2022-08-27 21:14 | NUR ---
[facility] RN NOTE, PATIENT HAS A COMPLAINT OF CONSTIPATION AND IS REQUESTING LINZESS AT THIS TIME. PATIENT VITAL SIGNS ARE STABLE. GAVE LINZESS 145MCG PO HS PRN ORDERED. WILL REASSESS FOR CONSTIPATION AND I WILL CONTINUE TO MONITOR THIS PATIENT WITH THE HELP OF STAFF.
--- NOTE | 2022-08-27 21:18 | NUR ---
[facility] RN NOTE, PATIENT REFUSED ACCU CHECK. OFFERED TO PERFORM ACCU CHECK THREE TIMES AND STILL PATIENT REFUSED STATING, " NO I ONLY HAVE MY BLOOD SUGAR CHECKED IN THE MORNING BECAUSE MY BLOOD IS SACRED ". EDUCATED PATIENT ON THE RISKS AND BENEFITS OF HYPER AND HYPOGLYCEMIA. WILL CONTINUE TO MONITOR THIS PATIENT WITH THE HELP OF STAFF.
[2022-08-27] MEDS ORDERED: LINZESS 145 MCG PO SCH (22:00)
[2022-08-28] MEDS: BLOOD SUGAR DIAGNOSTIC 1 EACH STRIP IN SCH ×6 (07:30→21:45)
[2022-08-28] MEDS: THYROID 30 MG TABLET PO SCH (07:40)
[2022-08-28 08:00] VITALS: BP 122/72
[2022-08-28] MEDS: GABAPENTIN 100 MG CAPSULE PO SCH ×3 (08:48→17:04)
[2022-08-28] MEDS: CARVEDILOL 3.125 MG TABLET PO SCH ×2 (08:49→17:05)
[2022-08-28] MEDS: FAMOTIDINE (20 MG) 20 MG TABLET PO SCH ×2 (08:49→17:04)
[2022-08-28] MEDS: SIMVASTATIN 20 MG TABLET PO SCH (08:49)
[2022-08-28] MEDS: DOCUSATE SODIUM 100 MG CAPSULE PO SCH ×2 (08:50→17:04)
[2022-08-28] MEDS: LISINOPRIL (20MG) 20 MG TABLET PO SCH (08:50)
[2022-08-28] MEDS: METFORMIN 500 MG TABLET PO SCH ×3 (08:50→17:04)
[2022-08-28] MEDS: FUROSEMIDE 40 MG TABLET PO SCH (08:50)
[2022-08-28] MEDS: ASPIRIN 81 MG TAB.CHEW PO SCH (08:50)
[2022-08-28] MEDS: CALCIUM CARB 600MG /VIT D 1 EACH TABLET PO SCH (08:50)
[2022-08-28] MEDS: KETOROLAC EYE 0.5% 3 ML BOTTLE RIGHTEYE SCH ×3 (08:52→17:05)
[2022-08-28] MEDS: PREDNISOLONE ACET 1% RIGHTEYE SCH ×3 (08:52→17:06)
[2022-08-28] MEDS ORDERED: REFRESH TEARS EACHEYE SCH (09:00)
[2022-08-28] MEDS: MAGNESIUM HYDROXIDE 30 ML UDC PO PRN (10:37)
--- NOTE | 2022-08-28 10:37 | NUR ---
NURSE NOTE: PT C/O NOT BEING ABLE TO HAVE A BM. MILK OF MAGNESIA ADMINISTERED ORDERED. PT MARYCARMEN WELL, WILL CONT TO MONITOR.
[2022-08-28 16:01] VITALS: BP 130/69
[2022-08-28] MEDS: SERTRALINE HCL 25 MG TABLET PO SCH (17:04)
[2022-08-28] MEDS: REFRESH TEARS EACHEYE SCH (17:05)
--- NOTE | 2022-08-28 19:01 | NUR ---
NURSE NOTE: MILK OF MAGNESIUM EFFECTIVE. PT HAD BM X2 DURING SHIFT. WILL CONT TO MONITOR.
[2022-08-28 20:25] VITALS: BP 137/75
--- NOTE | 2022-08-28 21:00 | NUR ---
RN NOTE PATIENT REFUSED ACCU CHECK. EXPLAINED RISKS/BENEFITS. PATIENT CONTINUED TO REFUSE. WILL CONTINUE TO MONITOR.
[2022-08-28] MEDS: DIVALPROEX SODIUM 250 MG TABLET.DR PO SCH (21:16)
[2022-08-28] MEDS: QUETIAPINE FUMARATE 100 MG TABLET PO SCH (21:16)
[2022-08-28] MEDS: OXYBUTYNIN CHLORIDE ER 5 MG TAB PO SCH (21:16)
[2022-08-28] MEDS: LINZESS 145 MCG PO PRN (21:21)
[2022-08-28] MEDS: ZOLPIDEM TARTRATE 5 MG TABLET PO PRN (21:23)
[2022-08-28] MEDS: PHENYLEPHRINE/SHK LV/MO/PET,WH 30 GM TUBE RC PRN (21:29)
[2022-08-28] MEDS ORDERED: HOME MED MISCELLANEOUS PO PRN (22:00)
[2022-08-29] MEDS: THYROID 30 MG TABLET PO SCH (07:26)
[2022-08-29] MEDS: BLOOD SUGAR DIAGNOSTIC 1 EACH STRIP IN SCH ×4 (07:30→21:34)
[2022-08-29 08:00] VITALS: BP 131/82
[2022-08-29] MEDS: ASPIRIN 81 MG TAB.CHEW PO SCH (08:34)
[2022-08-29] MEDS: CALCIUM CARB 600MG /VIT D 1 EACH TABLET PO SCH (08:35)
[2022-08-29] MEDS: SIMVASTATIN 20 MG TABLET PO SCH (08:35)
[2022-08-29] MEDS: LISINOPRIL (20MG) 20 MG TABLET PO SCH (08:36)
[2022-08-29] MEDS: GABAPENTIN 100 MG CAPSULE PO SCH (08:36)
[2022-08-29] MEDS: METFORMIN 500 MG TABLET PO SCH ×3 (08:36→17:33)
[2022-08-29] MEDS: CARVEDILOL 3.125 MG TABLET PO SCH ×2 (08:36→17:00)
[2022-08-29] MEDS: FAMOTIDINE (20 MG) 20 MG TABLET PO SCH ×2 (08:36→17:33)
[2022-08-29] MEDS: DOCUSATE SODIUM 100 MG CAPSULE PO SCH ×2 (08:36→17:00)
[2022-08-29] MEDS: REFRESH TEARS EACHEYE SCH ×2 (08:37→17:00)
[2022-08-29] MEDS: PREDNISOLONE ACET 1% RIGHTEYE SCH ×5 (08:37→18:17)
[2022-08-29] MEDS: KETOROLAC EYE 0.5% 3 ML BOTTLE RIGHTEYE SCH ×3 (08:37→17:40)
[2022-08-29] MEDS: LORAZEPAM 0.5 MG TABLET PO PRN ×2 (10:14→23:39)
--- NOTE | 2022-08-29 10:14 | NUR ---
NURSE NOTE: PT VERY ANXIOUS AT THIS TIME. ASKED FOR ATIVAN. ATIVAN ADMIN ORDERED. PT MARYCARMEN WELL. WILL CONT TO MONITOR.
[2022-08-29] MEDS: SERTRALINE HCL 25 MG TABLET PO SCH (10:15)
--- NOTE | 2022-08-29 11:14 | NUR ---
NURSE NOTE: PT CALM AT THIS TIME. ATIVAN EFFECTIVE AT THIS TIME. WILL CONT TO MONITOR.
[2022-08-29] MEDS: ASCORBIC ACID 500 MG TABLET PO SCH (12:30)
[2022-08-29 16:00] VITALS: BP 119/53
[2022-08-29 20:19] VITALS: BP 106/62
[2022-08-29] MEDS: OXYBUTYNIN CHLORIDE ER 5 MG TAB PO SCH (21:30)
[2022-08-29] MEDS: DIVALPROEX SODIUM 250 MG TABLET.DR PO SCH (21:30)
[2022-08-29] MEDS: QUETIAPINE FUMARATE 100 MG TABLET PO SCH (21:34)
[2022-08-29] MEDS: ZOLPIDEM TARTRATE 5 MG TABLET PO PRN (22:35)
--- NOTE | 2022-08-29 22:51 | NUR ---
RN NOTE PT CONTINUES TO REFUSE AQQCHECK RISK AND BENEFITS EXPLAINED X3 PT IS VERY ANXIOUS AT THIS TIME UPSET HER MEDICATION FOR CONSTIPATION IS NOT AVAILABLE NOT IN HER CASE. WILL ENDORSE TO DAY SHIFT NURSE TO FOLLOW UP IN THE AM REGARDING MEDICATION
--- NOTE | 2022-08-29 23:40 | NUR ---
RN NOTES PT REQUESTED PRN ATIVAN FOR ANXIETY PT VERY ANXIOUS KEEPS COMING OUT OF HER ROOM AND DEMANDING THINGS AND SCREAMING WHEN THEY CANNOT BE PROVIDED. TOLERATED WELL.
[2022-08-30] MEDS: THYROID 30 MG TABLET PO SCH (07:30)
[2022-08-30] MEDS: BLOOD SUGAR DIAGNOSTIC 1 EACH STRIP IN SCH ×4 (07:30→21:20)
[2022-08-30 08:00] VITALS: BP 109/64
--- NOTE | 2022-08-30 08:00 | NUR ---
RN NOTES PATIENT REFUSED BLOOD SUGAR CHECK , OFFERED 3X AND STILL REFUSING
[2022-08-30] MEDS: METFORMIN 500 MG TABLET PO SCH ×2 (08:25→16:39)
[2022-08-30] MEDS: ASCORBIC ACID 500 MG TABLET PO SCH (08:25)
[2022-08-30] MEDS: DOCUSATE SODIUM 100 MG CAPSULE PO SCH ×2 (08:26→16:38)
[2022-08-30] MEDS: FAMOTIDINE (20 MG) 20 MG TABLET PO SCH ×2 (08:26→16:39)
[2022-08-30] MEDS: CARVEDILOL 3.125 MG TABLET PO SCH ×2 (08:26→16:39)
[2022-08-30] MEDS: ASPIRIN 81 MG TAB.CHEW PO SCH (08:26)
[2022-08-30] MEDS: CALCIUM CARB 600MG /VIT D 1 EACH TABLET PO SCH (08:26)
[2022-08-30] MEDS: LISINOPRIL (20MG) 20 MG TABLET PO SCH (08:27)
[2022-08-30] MEDS: FUROSEMIDE 40 MG TABLET PO SCH ×2 (08:28→09:00)
[2022-08-30] MEDS: SIMVASTATIN 20 MG TABLET PO SCH (08:38)
[2022-08-30] MEDS: SERTRALINE HCL 25 MG TABLET PO SCH (08:38)
[2022-08-30] MEDS: KETOROLAC EYE 0.5% 3 ML BOTTLE RIGHTEYE SCH ×3 (08:54→16:38)
[2022-08-30] MEDS: REFRESH TEARS EACHEYE SCH ×2 (08:57→16:42)
--- NOTE | 2022-08-30 11:58 | NUR ---
RN [facility] NOTES PATIENT OFFERED WITH BLOOD SUGAR AND REFUSED , OFFERED 3X AND STILL REFUSING
[2022-08-30] MEDS: PREDNISOLONE ACET 1% RIGHTEYE SCH ×2 (12:41→16:37)
[2022-08-30 16:07] VITALS: BP 129/77
--- NOTE | 2022-08-30 19:18 | NUR ---
[facility] END OF SHIFT REPORT PATIENT AWAKE AND ABLE TO MAKE NEEDS KNOWN , VERY NEEDY , BEHAVIOR OF SCREAMING AND YELLING , COMPLIANT WIITH CARE AND ATTEND ACTIVITIES IN THE MORNING AND AFTER NOON , ALL NEEDS ATTENDED , DUE MEDS GIVEN ORDERED , REFUSED LASIX AND TOOK THE REST OF THE MEDICATIONS , AMBULATORY , ALL NEEDS ATTENDED
[2022-08-30 20:25] VITALS: BP 111/67
[2022-08-30] MEDS: QUETIAPINE FUMARATE 100 MG TABLET PO SCH (21:06)
[2022-08-30] MEDS: OXYBUTYNIN CHLORIDE ER 5 MG TAB PO SCH (21:06)
[2022-08-30] MEDS: DIVALPROEX SODIUM 250 MG TABLET.DR PO SCH (21:07)
[2022-08-30] MEDS: ZOLPIDEM TARTRATE 5 MG TABLET PO PRN (21:08)
--- NOTE | 2022-08-30 21:22 | NUR ---
RN NOTE PATIENT REFUSED ACCU CHECK. EXPLAINED RISKS/BENEFITS. PATIENT CONTINUED TO REFUSE. WILL CONTINUE TO MONITOR.
[2022-08-30] MEDS: LINZESS 145 MCG PO PRN (21:50)
[2022-08-30] MEDS: LORAZEPAM 0.5 MG TABLET PO PRN (21:52)
[2022-08-31] MEDS: BLOOD SUGAR DIAGNOSTIC 1 EACH STRIP IN SCH ×4 (07:30→21:28)
[2022-08-31] MEDS: THYROID 30 MG TABLET PO SCH (07:40)
[2022-08-31 08:00] VITALS: BP 126/69
[2022-08-31] MEDS: ASCORBIC ACID 500 MG TABLET PO SCH (08:49)
[2022-08-31] MEDS: ASPIRIN 81 MG TAB.CHEW PO SCH (08:50)
[2022-08-31] MEDS: SERTRALINE HCL 25 MG TABLET PO SCH (08:50)
[2022-08-31] MEDS: GABAPENTIN 100 MG CAPSULE PO SCH (08:50)
[2022-08-31] MEDS: METFORMIN 500 MG TABLET PO SCH ×2 (08:50→17:28)
[2022-08-31] MEDS: CARVEDILOL 3.125 MG TABLET PO SCH ×2 (08:50→17:00)
[2022-08-31] MEDS: SIMVASTATIN 20 MG TABLET PO SCH (08:50)
[2022-08-31] MEDS: FAMOTIDINE (20 MG) 20 MG TABLET PO SCH ×2 (08:51→17:28)
[2022-08-31] MEDS: LISINOPRIL (20MG) 20 MG TABLET PO SCH (08:51)
[2022-08-31] MEDS: CALCIUM CARB 600MG /VIT D 1 EACH TABLET PO SCH (08:51)
[2022-08-31] MEDS: DOCUSATE SODIUM 100 MG CAPSULE PO SCH ×2 (08:52→17:00)
[2022-08-31] MEDS: PREDNISOLONE ACET 1% RIGHTEYE SCH ×3 (09:05→17:29)
[2022-08-31] MEDS: KETOROLAC EYE 0.5% 3 ML BOTTLE RIGHTEYE SCH ×3 (09:05→17:31)
[2022-08-31] MEDS: REFRESH TEARS EACHEYE SCH ×2 (09:19→17:31)
[2022-08-31 16:00] VITALS: BP 105/60
--- NOTE | 2022-08-31 17:00 | NUR ---
NURSE NOTE: DR PETTIT INFORMED OF SWELLING TO L LEG. STATED THAT HE WOULD SEE HER TOMORROW. NO NEW ORDERS AT THIS TIME. WILL CONT TO MONITOR.
[2022-08-31] MEDS ORDERED: LINZESS 145 MCG PO PRN (18:00)
[2022-08-31 19:49] VITALS: BP 115/64
[2022-08-31] MEDS: DIVALPROEX SODIUM 250 MG TABLET.DR PO SCH (21:29)
[2022-08-31] MEDS: LINZESS 145 MCG PO PRN (21:29)
[2022-08-31] MEDS: ZOLPIDEM TARTRATE 5 MG TABLET PO PRN (21:29)
[2022-08-31] MEDS: PHENYLEPHRINE/SHK LV/MO/PET,WH 30 GM TUBE RC PRN (21:29)
[2022-08-31] MEDS: QUETIAPINE FUMARATE 100 MG TABLET PO SCH (21:48)
[2022-08-31] MEDS: OXYBUTYNIN CHLORIDE ER 5 MG TAB PO SCH (21:48)
[2022-08-31] MEDS: LORAZEPAM 0.5 MG TABLET PO PRN (23:27)
--- NOTE | 2022-08-31 23:27 | NUR ---
NURSE NOTE: PT TOOK AMBIEN EARLIER, FELL ASLEEP FOR "A LITTLE BIT" BUT IS NOW FEELING ANXIOUS. REQUESTED ATIVAN AT THIS TIME. ATIVAN PO ADMINISTERED ORDERED. PT TOLERATED WELL. WILL CONT TO MONITOR.
--- NOTE | 2022-09-01 00:28 | NUR ---
NURSE NOTE: PT SLEEPING AT THIS TIME. NO ANXIETY NOTED. ATIVAN EFFECTIVE AT THIS TIME. WILL CONT TO MONITOR.
[2022-09-01] MEDS: THYROID 30 MG TABLET PO SCH (07:30)
[2022-09-01] MEDS: BLOOD SUGAR DIAGNOSTIC 1 EACH STRIP IN SCH ×2 (07:30→12:00)
[2022-09-01 08:00] VITALS: BP 131/74
[2022-09-01] MEDS: DOCUSATE SODIUM 100 MG CAPSULE PO SCH ×2 (09:00→16:42)
[2022-09-01] MEDS: ASCORBIC ACID 500 MG TABLET PO SCH ×2 (09:00→21:32)
[2022-09-01] MEDS: FUROSEMIDE 40 MG TABLET PO SCH (09:00)
[2022-09-01] MEDS: GABAPENTIN 100 MG CAPSULE PO SCH (09:02)
[2022-09-01] MEDS: ASPIRIN 81 MG TAB.CHEW PO SCH (09:02)
[2022-09-01] MEDS: METFORMIN 500 MG TABLET PO SCH ×2 (09:02→16:42)
[2022-09-01] MEDS: SERTRALINE HCL 25 MG TABLET PO SCH (09:02)
[2022-09-01] MEDS: SIMVASTATIN 20 MG TABLET PO SCH (09:02)
[2022-09-01] MEDS: FAMOTIDINE (20 MG) 20 MG TABLET PO SCH ×2 (09:02→16:37)
[2022-09-01] MEDS: CARVEDILOL 3.125 MG TABLET PO SCH ×2 (09:03→16:37)
[2022-09-01] MEDS: LISINOPRIL (20MG) 20 MG TABLET PO SCH (09:03)
[2022-09-01] MEDS: KETOROLAC EYE 0.5% 3 ML BOTTLE RIGHTEYE SCH ×3 (09:06→16:39)
[2022-09-01] MEDS: PREDNISOLONE ACET 1% RIGHTEYE SCH ×3 (09:06→16:39)
[2022-09-01] MEDS: CALCIUM CARB 600MG /VIT D 1 EACH TABLET PO SCH (09:19)
--- NOTE | 2022-09-01 09:26 | NUR ---
RN-NOTES PATIENT SELECTIVE WITH MEDICATIONS. REFUSED COLACE,LASIX AND VIT. C. EXPLAINED RISK AND BENEFITS BUT PATIENT GETS ARGUMENTATIVE AND ANGRY WITH THE WEED CONTROL INSPECTOR. OFFERED X3.
[2022-09-01] MEDS: REFRESH TEARS EACHEYE SCH ×2 (10:02→16:43)
--- NOTE | 2022-09-01 15:50 | NUR ---
RN-NOTES RECEIVED T.O ORDER FROM JAMIE PETTIT TO D/C ACCU CHECK ORDER. NOTED AND CARRIED OUT.
[2022-09-01 16:00] VITALS: BP 106/60
--- NOTE | 2022-09-01 18:35 | NUR ---
RN-NOTES PATIENT VISIBLE IN THE UNIT,ATTENDED GROUPS A/O X3,CALM,COOPERATIVE, COMPLIANT WITH MEDICATION,NO ACUTE DISTRESS NOTED. AMBULATORY STEADY GAIT. ALL NEEDS ATTENDED AND ANTICIPATED.WILL CONT. MONITORING FOR SAFETY AND BEHAVIOR.WILL ENDORSE TO INCOMING NURSE FOR CONTINUITY OF CARE
[2022-09-01 20:00] VITALS: BP 129/83
[2022-09-01] MEDS: OXYBUTYNIN CHLORIDE ER 5 MG TAB PO SCH (21:27)
[2022-09-01] MEDS: ZOLPIDEM TARTRATE 5 MG TABLET PO PRN (21:28)
[2022-09-01] MEDS: DIVALPROEX SODIUM 250 MG TABLET.DR PO SCH (21:28)
[2022-09-01] MEDS: QUETIAPINE FUMARATE 100 MG TABLET PO SCH (21:29)
--- NOTE | 2022-09-01 21:35 | NUR ---
PT DEMANDED AND GIVEN VIT C 2000MG WHICH HAD SHE REFUSED TO TAKE AT 0900 THIS MORNING ORDERED. PATIENT STATED THAT SHE DID NOT WANT TO TAKE HER VIT C WITH HER CALCIUM AT THE SAME TIME IN THE MORNING BECAUSE IT RUINS HER NAILS. EXPLAINED TO THE PATIENT THAT THE ROUTINE ORDER FOR VIT C IS FOR 0900 AND THAT THE DOCTOR WILL NEED TO CHANGE THE ORDER FOR ANOTHER TIME. PATIENT REFUSED TO LISTEN, DEMANDED AND YELLED THAT SHE BE GIVEN HER VIT C. STAT.
[2022-09-01] MEDS: PHENYLEPHRINE/SHK LV/MO/PET,WH 30 GM TUBE RC PRN (21:38)
[2022-09-01] MEDS: LINZESS 145 MCG PO PRN (21:59)
[2022-09-01] MEDS: LORAZEPAM 0.5 MG TABLET PO PRN (22:52)
--- NOTE | 2022-09-01 23:55 | NUR ---
CONCRETE PAVING SUPERVISOR NOTE: GIVEN AMBIEN 5 MG TAB PER PER PATIENTS REQUEST @ 2127. SLEPT FOR ABOUT 15 MINUTES. PATIENT THEN REQUESTED AND WAS GIVEN ATIVAN 1 MG @ 2251 FOR ANXIETY. EFFECTIVE. PATIENT CALM AND SLEEPING AT THIS TIME. EASILY AROUSABLE. NO ACUTE DISTRESS NOTED. WILL CONTINUE TO MONITOR FOR SAFETY AND BEHAVIOR.
[2022-09-02] MEDS: THYROID 30 MG TABLET PO SCH (07:29)
[2022-09-02 08:00] VITALS: BP 121/64
[2022-09-02] MEDS: FAMOTIDINE (20 MG) 20 MG TABLET PO SCH ×2 (08:19→16:44)
[2022-09-02] MEDS: SIMVASTATIN 20 MG TABLET PO SCH (08:19)
[2022-09-02] MEDS: METFORMIN 500 MG TABLET PO SCH ×2 (08:19→16:43)
[2022-09-02] MEDS: CALCIUM CARB 600MG /VIT D 1 EACH TABLET PO SCH (08:19)
[2022-09-02] MEDS: GABAPENTIN 100 MG CAPSULE PO SCH (08:19)
[2022-09-02] MEDS: SERTRALINE HCL 25 MG TABLET PO SCH (08:19)
[2022-09-02] MEDS: ASPIRIN 81 MG TAB.CHEW PO SCH (08:19)
[2022-09-02] MEDS: LISINOPRIL (20MG) 20 MG TABLET PO SCH (08:20)
[2022-09-02] MEDS: CARVEDILOL 3.125 MG TABLET PO SCH ×2 (08:20→16:44)
[2022-09-02] MEDS: PREDNISOLONE ACET 1% RIGHTEYE SCH ×3 (08:21→16:45)
[2022-09-02] MEDS: KETOROLAC EYE 0.5% 3 ML BOTTLE RIGHTEYE SCH ×3 (08:21→16:45)
[2022-09-02] MEDS: REFRESH TEARS EACHEYE SCH ×2 (08:22→16:45)
[2022-09-02] MEDS: DOCUSATE SODIUM 100 MG CAPSULE PO SCH ×2 (08:26→16:44)
[2022-09-02] MEDS: DIVALPROEX SODIUM 250 MG TABLET.DR PO SCH ×2 (10:09→16:44)
[2022-09-02 16:00] VITALS: BP 114/80
--- NOTE | 2022-09-02 19:28 | NUR ---
RN-NOTES PATIENT VISIBLE IN THE UNIT,ATTENDED GROUPS A/O X3,CALM,COOPERATIVE, COMPLIANT WITH MEDICATION,NO ACUTE DISTRESS NOTED. AMBULATORY STEADY GAIT. ABLE TO MAKE NEEDS KNOWN TO THE STAFF.ALL NEEDS ATTENDED AND ANTICIPATED.WILL CONT. MONITORING FOR SAFETY AND BEHAVIOR.WILL ENDORSE TO INCOMING NURSE FOR CONTINUITY OF CARE
[2022-09-02 20:10] VITALS: BP 110/65
--- NOTE | 2022-09-02 20:49 | NUR ---
RN NOTES: PATIENT RESTING IN HER ROOM, NO S/SX OF ACUTE DISTRESS NOTED. PATIENT EASILY AGITATED, DISORGANIZED, NEEDY DEMENDING, PARANOID,HYPERVERVAL, PARANOID AGGRESSIVE NEEDS FREQUENT REDIRECTION. FOCUS ON MEDS DENIES SI/HI AT THIS TIME.ENCOURAGE TO VERBALIZED ANY FEELING OR CONCERN, SAFETY MEASURES IN PLACE. WILL CONTINUE TO MONITOR Addendum: 09/03/22 at 2025 by NA MEDEROS RN INCORRECT DOCUMENTIONS
[2022-09-02] MEDS: QUETIAPINE FUMARATE 100 MG TABLET PO SCH (21:27)
[2022-09-02] MEDS: OXYBUTYNIN CHLORIDE ER 5 MG TAB PO SCH (21:27)
[2022-09-02] MEDS: ZOLPIDEM TARTRATE 5 MG TABLET PO PRN (22:21)
--- NOTE | 2022-09-02 22:22 | NUR ---
RN NOTES: INSOMNIA PT. C/O UNABLE TO SLEEP PRN AMBIEN 5 MG PO GIVEN , PER PT. REQUEST , WILL CONTINUE TO MONITOR.
[2022-09-03] MEDS: THYROID 30 MG TABLET PO SCH (06:53)
[2022-09-03 08:00] VITALS: BP 119/65
[2022-09-03] MEDS: FAMOTIDINE (20 MG) 20 MG TABLET PO SCH ×2 (08:34→16:52)
[2022-09-03] MEDS: LISINOPRIL (20MG) 20 MG TABLET PO SCH (08:34)
[2022-09-03] MEDS: ASPIRIN 81 MG TAB.CHEW PO SCH (08:34)
[2022-09-03] MEDS: METFORMIN 500 MG TABLET PO SCH ×2 (08:34→16:52)
[2022-09-03] MEDS: GABAPENTIN 100 MG CAPSULE PO SCH (08:35)
[2022-09-03] MEDS: FUROSEMIDE 40 MG TABLET PO SCH ×2 (08:35→08:42)
[2022-09-03] MEDS: CALCIUM CARB 600MG /VIT D 1 EACH TABLET PO SCH (08:35)
[2022-09-03] MEDS: SERTRALINE HCL 25 MG TABLET PO SCH (08:35)
[2022-09-03] MEDS: SIMVASTATIN 20 MG TABLET PO SCH (08:35)
[2022-09-03] MEDS: DIVALPROEX SODIUM 250 MG TABLET.DR PO SCH ×2 (08:35→16:53)
[2022-09-03] MEDS: CARVEDILOL 3.125 MG TABLET PO SCH ×2 (08:35→16:53)
[2022-09-03] MEDS: REFRESH TEARS EACHEYE SCH ×2 (08:37→16:59)
[2022-09-03] MEDS: PREDNISOLONE ACET 1% RIGHTEYE SCH ×3 (08:37→16:54)
[2022-09-03] MEDS: KETOROLAC EYE 0.5% 3 ML BOTTLE RIGHTEYE SCH ×3 (08:37→16:54)
[2022-09-03] MEDS: DOCUSATE SODIUM 100 MG CAPSULE PO SCH ×2 (08:42→16:52)
[2022-09-03 16:00] VITALS: BP 101/69
--- NOTE | 2022-09-03 18:01 | NUR ---
RN-NOTES PATIENT VISIBLE IN THE UNIT, A/O X3,CALM,COOPERATIVE WITH THE STAFF, COMPLIANT WITH MEDICATION,NO ACUTE DISTRESS NOTED. AMBULATORY STEADY GAIT. PATIENT ABLE TO MAKE NEEDS KNOWN TO THE STAFF.ALL NEEDS ATTENDED AND ANTICIPATED.WILL CONT. MONITORING FOR SAFETY AND BEHAVIOR.WILL ENDORSE TO INCOMING NURSE FOR CONTINUITY OF CARE.
[2022-09-03 20:00] VITALS: BP 115/72
--- NOTE | 2022-09-03 20:24 | NUR ---
RN NOTES: PATIENT RESTING IN ROOM, TALKING WITH HER ROOMMATE PATIENT DEPRESSED ,FLAT AFFECT,DISORGANIZED, COOPERTIVE TO CARE , MED COMPLIANT REDIRECTABLE.ENCOURAGE TO VERBALIZED ANY FEELING OR CONCERN,AND ENCOURAGED TO ATTEND GROUP PARTICIPATION SAFETY MEASURES IN PLACE. WILL CONTINUE TO MONITOR Q15MIN ROUNDS FOR SAFETY AND BEHAVIOR.
--- NOTE | 2022-09-03 20:27 | NUR ---
RN NOTES: PATIENT RESTING IN HER ROOM, NO S/SX OF ACUTE DISTRESS NOTED. PATIENT EASILY AGITATED, DISORGANIZED, NEEDY DEMENDING, PARANOID,HYPERVERVAL, PARANOID AGGRESSIVE NEEDS FREQUENT REDIRECTION. FOCUS ON MEDS DENIES SI/HI AT THIS TIME.ENCOURAGE TO VERBALIZED ANY FEELING OR CONCERN, SAFETY MEASURES IN PLACE. WILL CONTINUE TO MONITOR Q15MIN ROUNDS FOR SAFETY AND BEHAVIOR.
[2022-09-03] MEDS: ASCORBIC ACID 500 MG TABLET PO SCH (21:07)
[2022-09-03] MEDS: LINZESS 145 MCG PO PRN (21:07)
[2022-09-03] MEDS: QUETIAPINE FUMARATE 100 MG TABLET PO SCH (21:22)
[2022-09-03] MEDS: OXYBUTYNIN CHLORIDE ER 5 MG TAB PO SCH (21:22)
[2022-09-03] MEDS: ZOLPIDEM TARTRATE 5 MG TABLET PO PRN (22:01)
--- NOTE | 2022-09-03 22:02 | NUR ---
RN NOTES: INSOMNIA PT. C/O UNABLE TO SLEEP PRN AMBIEN 5 MG PO GIVEN , PER PT. REQUEST , WILL CONTINUE TO MONITOR.
[2022-09-04] MEDS: THYROID 30 MG TABLET PO SCH (06:34)
[2022-09-04 08:00] VITALS: BP 121/82
[2022-09-04] MEDS: DIVALPROEX SODIUM 250 MG TABLET.DR PO SCH ×3 (08:40→17:22)
[2022-09-04] MEDS: METFORMIN 500 MG TABLET PO SCH ×2 (08:40→17:00)
[2022-09-04] MEDS: SERTRALINE HCL 25 MG TABLET PO SCH (08:40)
[2022-09-04] MEDS: CARVEDILOL 3.125 MG TABLET PO SCH ×2 (08:40→17:00)
[2022-09-04] MEDS: FAMOTIDINE (20 MG) 20 MG TABLET PO SCH ×2 (08:41→17:22)
[2022-09-04] MEDS: CALCIUM CARB 600MG /VIT D 1 EACH TABLET PO SCH (08:41)
[2022-09-04] MEDS: GABAPENTIN 100 MG CAPSULE PO SCH (08:41)
[2022-09-04] MEDS: ASPIRIN 81 MG TAB.CHEW PO SCH (08:42)
[2022-09-04] MEDS: SIMVASTATIN 20 MG TABLET PO SCH (08:42)
[2022-09-04] MEDS: LISINOPRIL (20MG) 20 MG TABLET PO SCH (08:42)
[2022-09-04] MEDS: KETOROLAC EYE 0.5% 3 ML BOTTLE RIGHTEYE SCH ×3 (08:43→17:23)
[2022-09-04] MEDS: DOCUSATE SODIUM 100 MG CAPSULE PO SCH ×2 (08:43→17:00)
[2022-09-04] MEDS: PREDNISOLONE ACET 1% RIGHTEYE SCH ×3 (08:43→17:23)
[2022-09-04] MEDS: REFRESH TEARS EACHEYE SCH ×2 (08:43→17:21)
[2022-09-04] MEDS: MAGNESIUM HYDROXIDE 30 ML UDC PO PRN (13:20)
[2022-09-04 16:00] VITALS: BP 103/65
[2022-09-04 20:26] VITALS: BP 108/82
[2022-09-04] MEDS: OXYBUTYNIN CHLORIDE ER 5 MG TAB PO SCH (21:15)
[2022-09-04] MEDS: QUETIAPINE FUMARATE 100 MG TABLET PO SCH (21:15)
[2022-09-04] MEDS: PHENYLEPHRINE/SHK LV/MO/PET,WH 30 GM TUBE RC PRN (21:15)
[2022-09-04] MEDS: ASCORBIC ACID 500 MG TABLET PO SCH (21:15)
[2022-09-04] MEDS: LINZESS 145 MCG PO PRN (21:15)
[2022-09-04] MEDS: ZOLPIDEM TARTRATE 5 MG TABLET PO PRN (21:33)
[2022-09-05] MEDS: THYROID 30 MG TABLET PO SCH (07:39)
[2022-09-05 08:00] VITALS: BP 105/63
[2022-09-05] MEDS: DOCUSATE SODIUM 100 MG CAPSULE PO SCH ×2 (09:00→17:00)
[2022-09-05] MEDS: LISINOPRIL (20MG) 20 MG TABLET PO SCH (09:00)
[2022-09-05] MEDS: CARVEDILOL 3.125 MG TABLET PO SCH ×2 (09:00→17:51)
[2022-09-05] MEDS: FUROSEMIDE 40 MG TABLET PO SCH ×2 (09:00→09:44)
[2022-09-05] MEDS: FAMOTIDINE (20 MG) 20 MG TABLET PO SCH ×2 (09:34→17:51)
[2022-09-05] MEDS: DIVALPROEX SODIUM 250 MG TABLET.DR PO SCH ×2 (09:35→21:38)
[2022-09-05] MEDS: METFORMIN 500 MG TABLET PO SCH ×2 (09:35→17:00)
[2022-09-05] MEDS: SIMVASTATIN 20 MG TABLET PO SCH (09:36)
[2022-09-05] MEDS: CALCIUM CARB 600MG /VIT D 1 EACH TABLET PO SCH (09:36)
[2022-09-05] MEDS: SERTRALINE HCL 25 MG TABLET PO SCH (09:36)
[2022-09-05] MEDS: ASPIRIN 81 MG TAB.CHEW PO SCH (09:36)
[2022-09-05] MEDS: KETOROLAC EYE 0.5% 3 ML BOTTLE RIGHTEYE SCH ×3 (09:39→17:51)
[2022-09-05] MEDS: PREDNISOLONE ACET 1% RIGHTEYE SCH ×3 (09:39→17:51)
[2022-09-05] MEDS: REFRESH TEARS EACHEYE SCH ×2 (09:39→17:50)
[2022-09-05 16:00] VITALS: BP 126/86
[2022-09-05 19:48] VITALS: BP 116/64
[2022-09-05] MEDS: LORAZEPAM 0.5 MG TABLET PO PRN (20:44)
--- NOTE | 2022-09-05 20:44 | NUR ---
NURSE NOTE: PT ANXIOUS AT THIS TIME. REQUESTED ATIVAN. WHEN ATTEMPTED TO GIVE THE PRESCRIBED DOSE PT REFUSED FULL DOSE AND ONLY TOOK HALF DOSE. PT MARYCARMEN WELL, WILL CONT TO MONITOR.
[2022-09-05] MEDS: ASCORBIC ACID 500 MG TABLET PO SCH (21:38)
[2022-09-05] MEDS: PHENYLEPHRINE/SHK LV/MO/PET,WH 30 GM TUBE RC PRN (21:38)
[2022-09-05] MEDS: OXYBUTYNIN CHLORIDE ER 5 MG TAB PO SCH (21:39)
[2022-09-05] MEDS: LINZESS 145 MCG PO PRN (21:39)
[2022-09-05] MEDS: QUETIAPINE FUMARATE 100 MG TABLET PO SCH (21:39)
[2022-09-05] MEDS: ZOLPIDEM TARTRATE 5 MG TABLET PO PRN (21:48)
--- NOTE | 2022-09-05 21:48 | NUR ---
NURSE NOTE: PT CALM AT THIS TIME. ATIVAN EFFECTIVE, NOT ABLE TO SLEEP AT THIS TIME SO PT REQUESTED AMBIEN. AMBIEN ADMINISTERED ORDERED. PT MARYCARMEN WLL. WILL CONT TO MONITOR.
--- NOTE | 2022-09-05 22:48 | NUR ---
NURSE NOTE: PT SLEEPING AT THIS TIME, RAGHAVIEN EFFECTIVE. WILL CONT TO MONITOR.
[2022-09-06] MEDS: THYROID 30 MG TABLET PO SCH (07:52)
[2022-09-06 08:00] VITALS: BP 100/66
[2022-09-06] MEDS: CARVEDILOL 3.125 MG TABLET PO SCH ×2 (09:00→16:59)
[2022-09-06] MEDS: LISINOPRIL (20MG) 20 MG TABLET PO SCH (09:00)
[2022-09-06] MEDS: SERTRALINE HCL 25 MG TABLET PO SCH (09:23)
[2022-09-06] MEDS: FAMOTIDINE (20 MG) 20 MG TABLET PO SCH ×2 (09:24→16:58)
[2022-09-06] MEDS: METFORMIN 500 MG TABLET PO SCH ×3 (09:24→17:00)
[2022-09-06] MEDS: DOCUSATE SODIUM 100 MG CAPSULE PO SCH ×2 (09:24→16:59)
[2022-09-06] MEDS: ASPIRIN 81 MG TAB.CHEW PO SCH (09:24)
[2022-09-06] MEDS: SIMVASTATIN 20 MG TABLET PO SCH (09:24)
[2022-09-06] MEDS: CALCIUM CARB 600MG /VIT D 1 EACH TABLET PO SCH (09:24)
[2022-09-06] MEDS: REFRESH TEARS EACHEYE SCH ×2 (09:26→16:55)
[2022-09-06] MEDS: KETOROLAC EYE 0.5% 3 ML BOTTLE RIGHTEYE SCH ×3 (09:29→16:55)
[2022-09-06] MEDS: PREDNISOLONE ACET 1% RIGHTEYE SCH ×3 (09:30→16:56)
[2022-09-06] MEDS: DIVALPROEX SODIUM 250 MG TABLET.DR PO SCH ×2 (09:33→21:07)
--- NOTE | 2022-09-06 15:40 | NUR ---
AYANA Coordination of Care: Patient will follow up with (Psychiatrist) Dr. Viri Ramos located at [address] [place] [address] [address], [place] [address]; ([phone]) on September 13 at 1PM, scheduled by Erin and faxed ([phone]).
[2022-09-06 16:00] VITALS: BP 128/78
[2022-09-06 19:34] VITALS: BP 110/62
[2022-09-06] MEDS: ASCORBIC ACID 500 MG TABLET PO SCH (21:06)
[2022-09-06] MEDS: LINZESS 145 MCG PO PRN (21:07)
[2022-09-06] MEDS: OXYBUTYNIN CHLORIDE ER 5 MG TAB PO SCH (21:09)
[2022-09-06] MEDS: QUETIAPINE FUMARATE 100 MG TABLET PO SCH (21:10)
[2022-09-06] MEDS: ZOLPIDEM TARTRATE 5 MG TABLET PO PRN (21:10)
--- NOTE | 2022-09-06 21:14 | NUR ---
Pt c/o insomnia. Least restrictive measures ineffective. Ambien 5 mg 1 tab po prn given as ordered. Will continue to monitor.
--- NOTE | 2022-09-06 22:18 | NUR ---
Post 1 hr Ambien effective. Pt asleep in bed easy to arouse. Frequent visual check done for safety. Will continue to monitor.
[2022-09-07] MEDS: THYROID 30 MG TABLET PO SCH (06:31)
[2022-09-07 08:00] VITALS: BP 124/70
[2022-09-07] MEDS: FUROSEMIDE 40 MG TABLET PO SCH (09:00)
[2022-09-07] MEDS: DOCUSATE SODIUM 100 MG CAPSULE PO SCH ×3 (09:00→17:00)
[2022-09-07] MEDS: PREDNISOLONE ACET 1% RIGHTEYE SCH ×3 (09:12→17:27)
[2022-09-07] MEDS: SIMVASTATIN 20 MG TABLET PO SCH (09:13)
[2022-09-07] MEDS: FAMOTIDINE (20 MG) 20 MG TABLET PO SCH ×2 (09:13→17:29)
[2022-09-07] MEDS: METFORMIN 500 MG TABLET PO SCH ×2 (09:13→17:28)
[2022-09-07] MEDS: KETOROLAC EYE 0.5% 3 ML BOTTLE RIGHTEYE SCH ×3 (09:13→17:28)
[2022-09-07] MEDS: CALCIUM CARB 600MG /VIT D 1 EACH TABLET PO SCH (09:13)
[2022-09-07] MEDS: SERTRALINE HCL 25 MG TABLET PO SCH (09:14)
[2022-09-07] MEDS: CARVEDILOL 3.125 MG TABLET PO SCH ×2 (09:14→17:28)
[2022-09-07] MEDS: LISINOPRIL (20MG) 20 MG TABLET PO SCH (09:14)
[2022-09-07] MEDS: ASPIRIN 81 MG TAB.CHEW PO SCH (09:14)
[2022-09-07] MEDS: DIVALPROEX SODIUM 250 MG TABLET.DR PO SCH ×2 (09:14→21:07)
[2022-09-07] MEDS: REFRESH TEARS EACHEYE SCH ×2 (09:15→17:28)
[2022-09-07] MEDS: MAGNESIUM HYDROXIDE 30 ML UDC PO PRN (13:50)
[2022-09-07 16:29] VITALS: BP 130/71
[2022-09-07 20:16] VITALS: BP 108/70
[2022-09-07] MEDS: QUETIAPINE FUMARATE 100 MG TABLET PO SCH (21:06)
[2022-09-07] MEDS: ASCORBIC ACID 500 MG TABLET PO SCH (21:07)
[2022-09-07] MEDS: OXYBUTYNIN CHLORIDE ER 5 MG TAB PO SCH (21:07)
[2022-09-07] MEDS: LORAZEPAM 0.5 MG TABLET PO PRN (23:05)
--- NOTE | 2022-09-07 23:05 | NUR ---
NURSE NOTE: PT AWAKE, UNABLE TO SLEEP AND ANXIOUS. REQUESTED ATIVAN AT THIS TIME FOR ANXIETY. ATIVAN PO ADMIN ORDERED. PT MARYCARMEN WELL. WILL CONT TO MONITOR.
[2022-09-08] MEDS: THYROID 30 MG TABLET PO SCH (07:17)
[2022-09-08 08:00] VITALS: BP 141/81
[2022-09-08] MEDS: KETOROLAC EYE 0.5% 3 ML BOTTLE RIGHTEYE SCH ×3 (08:37→17:13)
[2022-09-08] MEDS: PREDNISOLONE ACET 1% RIGHTEYE SCH ×3 (08:37→17:13)
[2022-09-08] MEDS: DIVALPROEX SODIUM 250 MG TABLET.DR PO SCH ×2 (08:39→21:06)
[2022-09-08] MEDS: SIMVASTATIN 20 MG TABLET PO SCH (08:39)
[2022-09-08] MEDS: REFRESH TEARS EACHEYE SCH ×2 (08:39→17:14)
[2022-09-08] MEDS: DOCUSATE SODIUM 100 MG CAPSULE PO SCH ×2 (08:39→17:05)
[2022-09-08] MEDS: CALCIUM CARB 600MG /VIT D 1 EACH TABLET PO SCH (08:39)
[2022-09-08] MEDS: METFORMIN 500 MG TABLET PO SCH ×2 (08:39→17:05)
[2022-09-08] MEDS: FAMOTIDINE (20 MG) 20 MG TABLET PO SCH ×2 (08:39→17:06)
[2022-09-08] MEDS: ASPIRIN 81 MG TAB.CHEW PO SCH (08:39)
[2022-09-08] MEDS: LISINOPRIL (20MG) 20 MG TABLET PO SCH (08:40)
[2022-09-08] MEDS: CARVEDILOL 3.125 MG TABLET PO SCH ×2 (08:40→17:06)
[2022-09-08 16:00] VITALS: BP 109/61
--- NOTE | 2022-09-08 18:31 | NUR ---
RN-NOTES PATIENT VISIBLE IN THE UNIT,A/O X3, ATTENDING GROUPS,COMPLIANT WITH MEDICATIONS. AMBULATORY STEADY GAIT. ALL NEEDS ATTENDED AND ANTICIPATED.WILL CONT. MONITORING FOR SAFETY AND BEHAVIOR.WILL ENDORSE TO INCOMING NURSE FOR CONTINUITY OF CARE.
--- NOTE | 2022-09-08 19:30 | NUR ---
[facility] RN NOTE, RECEIVED PATIENT AWAKE AND IN RAMONA CHAIR, NO S/S OR COMPLAINTS OF PAIN AT THIS TIME. PATIENT IS DISPLAYING NO S/S OF APPARENT DISTRESS AT THIS TIME. PATIENT BREATHING IS UNLABORED WITH EQUAL RISE AND FALL OF THE CHEST. PATIENT IS ALERT AND ORIENTED X 2 ON ROOM AIR WITH A SPO2 95%. PATIENT IS COMPLIANT WITH MEDICATIONS, ANXIOUS, DEMANDING, EASILY IRRITABLE, PARANOID, DISORGANIZED, AND COOPERATIVE. PATIENT DENIES SUICIDAL AND HOMICIDAL IDEATIONS AT THIS TIME. PATIENT ASSISTED WITH TURNING AND REPOSITIONING Q2HR AND PRN FOR COMFORT AND CIRCULATION. PATIENT HAS NO NEEDS AT THIS TIME. PATIENT EDUCATED ON THE USE OF THE CALL RHOADES. PATIENT BED SIDE RAILS UP X 2 FOR SAFETY. PATIENT BED IS LOCKED, LOW, WITH BED ALARM ON. WILL CONTINUE TO MONITOR THIS PATIENT Q15 MINUTES WITH THE HELP OF STAFF TO MAINTAIN SAFETY.
[2022-09-08 20:00] VITALS: BP 102/67
[2022-09-08] MEDS: ASCORBIC ACID 500 MG TABLET PO SCH (21:04)
[2022-09-08] MEDS: LINZESS 145 MCG PO PRN (21:06)
[2022-09-08] MEDS: OXYBUTYNIN CHLORIDE ER 5 MG TAB PO SCH (21:06)
[2022-09-08] MEDS: QUETIAPINE FUMARATE 100 MG TABLET PO SCH (21:06)
[2022-09-08] MEDS: LORAZEPAM 0.5 MG TABLET PO PRN (22:19)
--- NOTE | 2022-09-08 22:19 | NUR ---
[facility]PS RN NOTE, PATIENT HAS A COMPLAINT OF FEELING ANXIOUS AND IS REQUESTING ATIVAN AT THIS TIME. PATIENT VITAL SIGNS ARE STABLE. GAVE ATIVAN 1MG PO Q6 PRN ORDERED. WILL REASSESS OF ANXIETY AND I WILL CONTINUE TO MONITOR THIS PATIENT WITH THE HELP OF STAFF.
--- NOTE | 2022-09-08 23:41 | NUR ---
[facility] RN NOTE, PATIENT HAS A COMPLAINT OF INDIGESTION AND IS REQUESTING MAALOX AT THIS TIME. PATIENT VITAL SIGNS ARE STABLE. GAVE MAALOX 30ML PO Q4HR PRN ORDERED. WILL REASSESS PATIENT AND I WILL CONTINUE TO MONITOR THIS PATIENT WITH THE HELP OF STAFF.
[2022-09-09] MEDS: THYROID 30 MG TABLET PO SCH (07:46)
[2022-09-09 08:00] VITALS: BP 120/82
--- NOTE | 2022-09-09 08:04 | NUR ---
SW Discharge Note: [place] [address] [address]; ([phone]). Patient's caregiver Bonnie ([phone]) will seed cone picker pt at 12PM. Patients brother Adrian ([phone]) is aware and agreeable. Patient is alert and oriented x3. Patient is happy to be going back home. Patient denies suicidal or homicidal ideation. Patient denies visual/auditory hallucinations. Patient will have a caregiver who will take care of pt during the noon and night. Patient will follow up with (Psychiatrist) Dr. Viri Ramos located at [address] [facility] [address], [place] [address]; ([phone]) on September 13 at 1PM. Patient will follow up with ([place]) [place] [address] [place] [address] ([phone]). Patient presents with euthymic mood and congruent affect
[2022-09-09] MEDS: DOCUSATE SODIUM 100 MG CAPSULE PO SCH (08:51)
[2022-09-09] MEDS: METFORMIN 500 MG TABLET PO SCH (08:51)
[2022-09-09] MEDS: CALCIUM CARB 600MG /VIT D 1 EACH TABLET PO SCH (08:51)
[2022-09-09 08:52] VITALS: BP 120/82
[2022-09-09] MEDS: FAMOTIDINE (20 MG) 20 MG TABLET PO SCH (08:52)
[2022-09-09] MEDS: SIMVASTATIN 20 MG TABLET PO SCH (08:52)
[2022-09-09] MEDS: LISINOPRIL (20MG) 20 MG TABLET PO SCH (08:52)
[2022-09-09] MEDS: CARVEDILOL 3.125 MG TABLET PO SCH (08:52)
[2022-09-09] MEDS: DIVALPROEX SODIUM 250 MG TABLET.DR PO SCH (08:52)
[2022-09-09] MEDS: ASPIRIN 81 MG TAB.CHEW PO SCH (08:52)
[2022-09-09] MEDS: REFRESH TEARS EACHEYE SCH (08:53)
[2022-09-09] MEDS: KETOROLAC EYE 0.5% 3 ML BOTTLE RIGHTEYE SCH ×2 (08:53→12:10)
[2022-09-09] MEDS: PREDNISOLONE ACET 1% RIGHTEYE SCH ×2 (08:53→12:10)
[2022-09-09] MEDS: FUROSEMIDE 40 MG TABLET PO SCH (08:54)
--- NOTE | 2022-09-09 09:25 | NUR ---
Dr. Gutierrez gave an order to D/C pt. to home and to follow up with psych and medical doctors. Psychiatrist provided prescriptions upon discharge.
--- NOTE | 2022-09-09 12:24 | NUR ---
Dr. Mauricio Colvin made aware for the discharge and provided a prescriptions for 1 month supply.
--- NOTE | 2022-09-09 12:45 | NUR ---
RN-DISCHARGE NOTES PATIENT HAD A DISCHARGE ORDER FROM DR. MARIN ( PSYCHIATRIST) MEERA ( FINE ARTS PACKER) MEDICALLY CLEARED PATIENT FOR DISCHARGE. PATIENT LEFT THE UNIT IN STABLE CONDITION A/O X3-4 AMBULATORY STEADY GAIT. PATIENT DID NOT VERBALIZE SI/HI,DENIES VISUAL/AUDITORY HALLUCINATIONS AT THE TIME OF DISCHARGE. PATIENT SIGN ALL DISCHARGE PAPERS AND BELONGING LIST. PATIENT REFUSED PICTURE TAKEN ON HER LEFT FOOT PRIOR TO DISCHARGE . PATIENT WAS ACCOMPANIED BY THE CHARGE NURSE DOWN THE LOBBY FOR SAFETY. PATIENT LEFT VIA TAXI. INSTRUCTED PATIENT TO FOLLOW UP WITH HER PSYCHIATRIST SCHEDULE AND HER PCP IN A WEEK OR NEEDED. CALL 911 OR GO TO THE NEAREST EMERGENCY ROOM INCASE OF EMERGENCY.
== END 2022-09-09 12:45 | disposition home or self-care (01) | DRG 885 ==
LOC: ER 08-26 00:04 → GPS 08-26 11:53
PROVIDERS: ADMIT Psychiatry & Neurology Psychosomatic Medicine
DX: F25.0 Schizoaffective disorder, bipolar type (principal); I11.0 Hypertensive heart disease with heart failure; R45.851 Suicidal ideations; E11.9 Type 2 diabetes mellitus without complications; K21.9 Gastro-esophageal reflux disease without esophagitis; Z20.822 Contact with and (suspected) exposure to COVID-19; I50.9 Heart failure, unspecified; F41.9 Anxiety disorder, unspecified; E78.5 Hyperlipidemia, unspecified; Z96.651 Presence of right artificial knee joint; Z96.641 Presence of right artificial hip joint; Z79.84 Long term (current) use of oral hypoglycemic drugs; Z79.82 Long term (current) use of aspirin; G89.29 Other chronic pain; Z79.899 Other long term (current) drug therapy; E03.9 Hypothyroidism, unspecified; F60.3 Borderline personality disorder; R41.9 Unspecified symptoms and signs involving cognitive functions and awareness; I89.0 Lymphedema, not elsewhere classified; Z91.14 Patient's other noncompliance with medication regimen
CPT/HCPCS: 36415; 80048-TC; 80053-TC; 80061-TC; 80076-TC; 81001; 82565-TC; 82962-TC; 84439-TC; 84443-TC; 84481; 85025-TC; 87081-TC; C9803; G0480; J1815

== ENCOUNTER 2022-09-28 21:22 | Inpatient (IN) | payer MEDICARE, OTHER ==
[~2022-09-28] VITALS: Ht 152.4 cm; Wt 78.0 kg
[~2022-09-28 21:22] MED LIST changes: -BISA-79 PO; -BRIM5DRO2 OP; +CARB15DR OP; -DORZ10DR13 EACHEYE; +GABA-532 PO; -HYDR-3980 PO; +KETO5DRO RIGHTEYE; -KETO5DRO83 LEFTEYE; -LORA-259 PO; +PRED5DRO17 RIGHTEYE; -VOLTAREN GEL TP
[2022-09-29 00:17] LABS: BASOPHILS % (AUTO) 0.4 % (0.0-2.0); HEMATOCRIT 39 % (33-45); LYMPHOCYTES # (AUTO) 1.8 K/uL (0.8-4.8); LYMPHOCYTES % (AUTO) 27.2 % (20.0-44.0); MEAN CORPUSCULAR HGB CONC 34 g/dl (31.0-36.0); MEAN CORPUSCULAR VOLUME 92 fL (82-100); MONOCYTES # (AUTO) 0.6 K/uL (0.1-1.30); MONOCYTES % (AUTO) 8.5 % (2.0-12.0); NEUTROPHILS # (AUTO) 4.3 K/uL (1.8-8.9); NEUTROPHILS % (AUTO) 62.9 % (43.0-81.0); PLATELET COUNT (AUTO) 332 K/uL (150-450); RED BLOOD CELL COUNT(AUTO) 4.19 MIL/uL (4.0-5.2); WHITE BLOOD COUNT (AUTO) 6.8 K/uL (4.3-11.0)
[2022-09-29 00:39] LABS: BILIRUBIN,URINE NEGATIVE (NEGATIVE); COLOR,URINE DARK YELLOW (YELLOW); LEUKOCYTE ESTERASE ,URINE NEGATIVE (NEGATIVE); NITRITE, URINE NEGATIVE (NEGATIVE); PROTEIN,URINE NEGATIVE (NEGATIVE); UGLUCOSE NEGATIVE (NEGATIVE); UROBILINOGEN,URINE 0.2 EU/dL (0.2)
[2022-09-29 00:45] LABS: CALCIUM, SERUM 9.4 mg/dL (8.5-10.1); CARBON DIOXIDE 26 mmol/L (21-32); CHLORIDE 101 mmol/L (98-107); CREATININE 0.9 mg/dL (0.6-1.3); GLUCOSE 114 mg/dL (74-106); SODIUM SERUM 135 mmol/L (136-145); UREA NITROGEN, BLOOD 18 mg/dL (7-18)
--- NOTE | 2022-09-29 00:45 | NUR ---
[facility] C/O FEELING SI, DEPRESSED . PT A/OX4 TOLERATING R/A WELL WITH NO RESP DISTRESS. 1:[address] MEAS[address].
[2022-09-29 00:56] LABS: ALANINE AMINOTRANSFERASE 28 U/L (12-78); ALBUMIN 3.7 g/dL (3.4-5.0); ALCOHOL, BLOOD < 3 mg/dL (0-0); ALKALINE PHOSPHATASE 66 U/L (46-116); ASPARTATE AMINOTRANSFERASE 17 U/L (15-37); BILIRUBIN,DIRECT 0.1 mg/dL (0.0-0.2); BILIRUBIN,TOTAL 0.3 mg/dL (0.2-1.0); TOTAL PROTEIN, SERUM 7.6 g/dL (6.4-8.2)
[2022-09-29 00:57] LABS: ACETAMINOPHEN 0 ug/ml (10-30)
[2022-09-29 01:01] LABS: BACTERIA,URINE Few /HPF (None Seen); RBC,URINE 0-2 /HPF (0-2); SQUAMOUS EPITHELIAL CELL,UR Moderate /HPF (None Seen)
--- NOTE | 2022-09-29 06:07 | NUR ---
PROVIDE PT WITH WATER; TOLERATED WELL.
--- NOTE | 2022-09-29 07:20 | NUR ---
RECEIVED PT FROM [facility] PT ASLEEPYING IN [facility] FOR ROOM ON 5150 FOR HARM SOMEONE AND UNABLE TO CARE OF HERE SELF 09/29/22
--- NOTE | 2022-09-29 07:35 | NUR ---
GOT BED 212-A
--- NOTE | 2022-09-29 09:54 | NUR ---
REPORT GIVEN TO JUVENAL FOR TRAY
--- NOTE | 2022-09-29 10:07 | NUR ---
PT TRASFERRED TO GPS IN STABLE CONDITION
--- NOTE | 2022-09-29 10:15 | NUR ---
RN-ADMISSION NOTES ADMITTED 71 Y.O FEMALE PATIENT FROM [facility] ER. PATIENT ON 5150 HOLD FOR DTO AND GD ADULT. DR. MARIN ( PSYCHIATRIST) IN THE UNIT WHEN PATIENT ARRIVED. DR. JACK ( LOOM OPERATOR) MADE AWARE OF THE ADMISSION. PATIENT'S BROTHER ARLYN BELLAMY WAS NOTIFIED. PATIENT'S RIGHT BOOKLET WAS GIVEN TO THE PATIENT.CONTRABAND AND SKIN ASSESSMENT DONE. PATIENT WAS ORIENTED IN THE UNIT AND UNIT POLICIES. WILL CONT. MONITORING FOR SAFETY AND BEHAVIOR.
--- NOTE | 2022-09-29 10:24 | NUR ---
AYANA Clinical Note: Pt placed on a 5150 hold for danger to others and GD. Per hold, pt yelling and screaming. Pt has not been eating or taking care of self for the past two days. Pt currently resides at home located at [address] [place] [address]; ([phone]). Pt reports that she has camp coordinator at home. SW will contact pt's brother Adrian ([phone]) to discuss treatment/discharge plan.
--- NOTE | 2022-09-29 10:24 | NUR ---
AYANA Initial Discharge Plan: Pt currently resides at home located at [address] [place] [address]; ([phone]). Pt reports that she has speech pathologist assistant at home. AYANA will contact pt's brother Adrian ([phone]) to discuss treatment/discharge plan. AYANA will work with the MD, family, and treatment team.
--- NOTE | 2022-09-29 10:25 | NUR ---
Treatment Plan: Pt refused to sign treatment plan and was yelling.
[2022-09-29] MEDS ORDERED: BLOOD SUGAR DIAGNOSTIC 1 EACH STRIP IN ONE (11:00)
[2022-09-29] MEDS ORDERED: MAG HYDROX/AL HYDROX/SIMETH 30 ML UDC PO PRN (11:00)
[2022-09-29] MEDS ORDERED: ACETAMINOPHEN 325 MG TABLET PO PRN (11:00)
[2022-09-29] MEDS ORDERED: LORAZEPAM 0.5 MG TABLET PO PRN (11:00)
[2022-09-29] MEDS ORDERED: SERT25TA PO (11:30)
[2022-09-29] MEDS ORDERED: BIMA2.5D5 EACHEYE (11:30)
[2022-09-29] MEDS ORDERED: QUET50TA PO (11:30)
[2022-09-29] MEDS ORDERED: VASCULERA PO (11:30)
[2022-09-29] MEDS ORDERED: PE/S52CR RC (11:30)
[2022-09-29] MEDS ORDERED: DIVA500T2 PO (11:31)
[2022-09-29] MEDS ORDERED: METF-440 PO (11:31)
[2022-09-29] MEDS ORDERED: PANT40TA49 PO (11:31)
--- NOTE | 2022-09-29 13:02 | NUR ---
Called Cris the clinician at [phone] and clarified about the time in the hold and she said it's 2:14 AM and said to add AM on the hold and Adali is aware.
[2022-09-29] MEDS: DIVALPROEX SODIUM 500 MG TABLET.DR PO SCH ×2 (13:11→16:25)
[2022-09-29] MEDS: GABAPENTIN 100 MG CAPSULE PO SCH ×2 (13:11→16:25)
[2022-09-29 16:00] VITALS: BP 120/63
[2022-09-29] MEDS: DOCUSATE SODIUM 100 MG CAPSULE PO SCH (16:25)
[2022-09-29] MEDS: FAMOTIDINE (20 MG) 20 MG TABLET PO SCH (16:25)
[2022-09-29] MEDS: SERTRALINE HCL 25 MG TABLET PO SCH (16:25)
[2022-09-29] MEDS: CARVEDILOL 3.125 MG TABLET PO SCH (16:26)
[2022-09-29] MEDS: POLYVINYL ALCOHOL 15 ML BOTTLE OP SCH (16:32)
--- NOTE | 2022-09-29 18:44 | NUR ---
RN-NOTES PATIENT VISIBLE IN THE UNIT,A/O X3,AMBULATORY STEADY GAIT. NOTED PATIENT WITH EASILY ANGRY,NEEDY,DEMANDING BEHAVIOR. ALL NEEDS ATTENDED AND ANTICIPATED. WILL CONT. MONITORING FOR SAFETY AND BEHAVIOR. WILL ENDORSE TO INCOMING NURSE FOR CONTINUITY OF CARE.
[2022-09-29 19:49] VITALS: BP 118/65
--- NOTE | 2022-09-29 19:54 | NUR ---
RN NOTES: PATIENT RESTING IN HER ROOM, NO S/SX OF ACUTE DISTRESS NOTED. PATIENT EASILY AGITATED, DISORGANIZED, NEEDY DEMENDING, PARANOID,HYPERVERVAL, AGGRESSIVE , NEEDS FREQUENT REDIRECTION. FOCUS ON MEDS, ALL NEEDS ATTENDED AND ANTICIPATED, DENIES SI/HI AT THIS TIME.ENCOURAGE TO VERBALIZED ANY FEELING OR CONCERN, SAFETY MEASURES IN PLACE. WILL CONTINUE TO MONITOR .
[2022-09-29] MEDS: QUETIAPINE FUMARATE 100 MG TABLET PO SCH (21:11)
[2022-09-29] MEDS: LATANOPROST EYE DROP 0.005% 2.5 ML BOTTLE OP SCH (21:13)
[2022-09-30 07:43] LABS: CHOLESTEROL 164 mg/dL (<200); HDL CHOLESTEROL 57 mg/dL (40-60); LDL 87 mg/dL (0-99); TRIGLYCERIDES 75 mg/dL (30-150)
[2022-09-30 08:00] VITALS: BP 120/70
[2022-09-30] MEDS: DOCUSATE SODIUM 100 MG CAPSULE PO SCH ×2 (08:19→17:20)
[2022-09-30] MEDS: GABAPENTIN 100 MG CAPSULE PO SCH ×3 (08:19→17:19)
[2022-09-30] MEDS: DIVALPROEX SODIUM 500 MG TABLET.DR PO SCH ×2 (08:19→17:20)
[2022-09-30] MEDS: CARVEDILOL 3.125 MG TABLET PO SCH ×2 (08:20→17:20)
[2022-09-30] MEDS: FAMOTIDINE (20 MG) 20 MG TABLET PO SCH ×2 (08:20→17:20)
[2022-09-30] MEDS: SERTRALINE HCL 25 MG TABLET PO SCH ×2 (08:20→17:20)
[2022-09-30] MEDS: METFORMIN 500 MG TABLET PO SCH (08:24)
[2022-09-30] MEDS: SIMVASTATIN 20 MG TABLET PO SCH (08:24)
[2022-09-30] MEDS: ASPIRIN 81 MG TAB.CHEW PO SCH (08:24)
[2022-09-30] MEDS: THYROID 30 MG TABLET PO SCH (08:24)
[2022-09-30] MEDS: PANTOPRAZOLE 40 MG TABLET.DR PO SCH (08:24)
[2022-09-30] MEDS: POLYVINYL ALCOHOL 15 ML BOTTLE OP SCH ×2 (08:33→17:27)
[2022-09-30] MEDS ORDERED: DIVALPROEX SODIUM 500 MG TABLET.DR PO SCH (09:00)
[2022-09-30 09:06] LABS: BILIRUBIN,TOTAL 0.3 mg/dL (0.2-1.0); CALCIUM, SERUM 8.8 mg/dL (8.5-10.1); CREATININE 0.9 mg/dL (0.6-1.3); TOTAL PROTEIN, SERUM 6.2 g/dL (6.4-8.2)
--- NOTE | 2022-09-30 09:34 | NUR ---
AYANA Family Contact: SW contacted pt's brother Adrian ([phone]) is notified of patient's admission. SW discussed treatment/discharge plan. Brother stated that when pt states the prescriptions did not help she is meaning the medications did not help. He wanted this development writer to transfer the information to Dr. Gutierrez. SW notified Dr. Gutierrez and he is aware.
--- NOTE | 2022-09-30 10:09 | NUR ---
RN-NOTES PATIENT COMPLAINED OF ANXIETY AND REQUESTING FOR ATIVAN. ATIVAN 1MG P.O GIVEN PRN ORDER. WILL CONT. MONITORING FOR SAFETY AND BEHAVIOR.
[2022-09-30] MEDS: MAGNESIUM HYDROXIDE 30 ML UDC PO PRN (10:25)
[2022-09-30] MEDS: OLANZAPINE 2.5 MG TABLET PO SCH ×2 (10:25→17:19)
--- NOTE | 2022-09-30 10:29 | NUR ---
RN-NOTES PATIENT C/O CONSTIPATION , MOM 30 ML GIVEN PRN ORDER.
[2022-09-30 16:00] VITALS: BP 117/70
--- NOTE | 2022-09-30 18:22 | NUR ---
RN-NOTES PATIENT LYING IN BED AWAKE,A/OX3,GUARDED,NOTED WITH EASILY ANGRY,NEEDY AND DEMANDING BEHAVIOR.COMPLIANT WITH MEDICATIONS. ISOLATIVE IN HER ROOM ENCOURAGED TO PARTICIPATES IN THE GROUP BUT PREFERS TO STAY IN HER ROOM AND REST.AMBULATORY STEADY GAIT.ALL NEEDS ATTENDED AND ANTICIPATED. WILL CONT. MONITORING FOR SAFETY AND BEHAVIOR.WILL ENDORSE TO INCOMING NURSE FOR CONTINUITY OF CARE.
[2022-09-30 20:00] VITALS: BP 115/69
--- NOTE | 2022-09-30 20:21 | NUR ---
RN NOTES: PATIENT RESTING IN HER BED, NO S/SX OF ACUTE DISTRESS NOTED. PATIENT EASILY AGITATED, DISORGANIZED, NEEDY DEMENDING, PARANOID,HYPERVERVAL, AGGRESSIVE , NEEDS FREQUENT REDIRECTION. FOCUS ON MEDS, ALL NEEDS ATTENDED AND ANTICIPATED, DENIES SI/HI AT THIS TIME.ENCOURAGE TO VERBALIZED ANY FEELING OR CONCERN, SAFETY MEASURES IN PLACE. WILL CONTINUE TO MONITOR .
[2022-09-30] MEDS: QUETIAPINE FUMARATE 100 MG TABLET PO SCH (21:01)
[2022-09-30] MEDS: LATANOPROST EYE DROP 0.005% 2.5 ML BOTTLE OP SCH (21:02)
[2022-10-01 08:00] VITALS: BP 121/84
[2022-10-01] MEDS: DIVALPROEX SODIUM 500 MG TABLET.DR PO SCH ×2 (08:25→16:15)
[2022-10-01] MEDS: METFORMIN 500 MG TABLET PO SCH (08:25)
[2022-10-01] MEDS: SIMVASTATIN 20 MG TABLET PO SCH (08:25)
[2022-10-01] MEDS: GABAPENTIN 100 MG CAPSULE PO SCH ×3 (08:25→16:16)
[2022-10-01] MEDS: ASPIRIN 81 MG TAB.CHEW PO SCH (08:25)
[2022-10-01] MEDS: OLANZAPINE 2.5 MG TABLET PO SCH ×2 (08:25→16:16)
[2022-10-01] MEDS: FAMOTIDINE (20 MG) 20 MG TABLET PO SCH ×2 (08:25→16:15)
[2022-10-01] MEDS: PANTOPRAZOLE 40 MG TABLET.DR PO SCH (08:25)
[2022-10-01] MEDS: THYROID 30 MG TABLET PO SCH (08:25)
[2022-10-01] MEDS: DOCUSATE SODIUM 100 MG CAPSULE PO SCH ×2 (08:25→16:15)
[2022-10-01] MEDS: SERTRALINE HCL 25 MG TABLET PO SCH ×2 (08:26→16:16)
[2022-10-01] MEDS: CARVEDILOL 3.125 MG TABLET PO SCH ×2 (08:26→16:16)
[2022-10-01] MEDS: POLYVINYL ALCOHOL 15 ML BOTTLE OP SCH ×2 (08:27→17:05)
[2022-10-01] MEDS: MAGNESIUM HYDROXIDE 30 ML UDC PO PRN (14:42)
[2022-10-01 16:01] VITALS: BP 142/77
--- NOTE | 2022-10-01 18:38 | NUR ---
RN-NOTES PATIENT LYING IN BED AWAKE,A/OX3,GUARDED,NOTED WITH EASILY ANGRY,NEEDY AND DEMANDING BEHAVIOR.COMPLIANT WITH MEDICATIONS. VISIBLE IN THE UNIT,ABLE TO MAKE NEEDS KNOWN TO THE STAFF.AMBULATORY STEADY GAIT.ALL NEEDS ATTENDED AND ANTICIPATED. WILL CONT. MONITORING FOR SAFETY AND BEHAVIOR.WILL ENDORSE TO INCOMING NURSE FOR CONTINUITY OF CARE.
[2022-10-01 20:32] VITALS: BP 138/71
[2022-10-01] MEDS: QUETIAPINE FUMARATE 100 MG TABLET PO SCH (21:08)
[2022-10-01] MEDS: LATANOPROST EYE DROP 0.005% 2.5 ML BOTTLE OP SCH (21:09)
--- NOTE | 2022-10-01 21:10 | NUR ---
RN NOTES: REFUSED MEDICATION PT. REFUSED SCHEDULE MEDS LATANOPROST EYE DROPS , ENCOUARGED X3 EXPLINED RISKS AND BENEFITS, BUT PT. STRONGLY REFUSED DUE TO UNCOOPERTIVE , EASILY AGITATED, PARANOID, ANXIOUS, PER PT. STATES I DONT WANT IT. .
[2022-10-02 08:00] VITALS: BP 94/55
[2022-10-02] MEDS: GABAPENTIN 100 MG CAPSULE PO SCH ×3 (08:28→17:20)
[2022-10-02] MEDS: OLANZAPINE 2.5 MG TABLET PO SCH ×2 (08:28→17:20)
[2022-10-02] MEDS: METFORMIN 500 MG TABLET PO SCH (08:28)
[2022-10-02] MEDS: SERTRALINE HCL 25 MG TABLET PO SCH ×2 (08:28→17:20)
[2022-10-02] MEDS: DOCUSATE SODIUM 100 MG CAPSULE PO SCH ×2 (08:28→17:20)
[2022-10-02] MEDS: PANTOPRAZOLE 40 MG TABLET.DR PO SCH (08:28)
[2022-10-02] MEDS: THYROID 30 MG TABLET PO SCH (08:28)
[2022-10-02] MEDS: CARVEDILOL 3.125 MG TABLET PO SCH ×2 (08:29→17:19)
[2022-10-02] MEDS: ASPIRIN 81 MG TAB.CHEW PO SCH (08:29)
[2022-10-02] MEDS: SIMVASTATIN 20 MG TABLET PO SCH (08:29)
[2022-10-02] MEDS: FAMOTIDINE (20 MG) 20 MG TABLET PO SCH ×2 (08:29→17:20)
[2022-10-02] MEDS: DIVALPROEX SODIUM 500 MG TABLET.DR PO SCH ×2 (08:30→17:20)
[2022-10-02] MEDS: POLYVINYL ALCOHOL 15 ML BOTTLE OP SCH ×2 (08:31→17:21)
[2022-10-02 16:00] VITALS: BP 122/70
[2022-10-02] MEDS: MAGNESIUM HYDROXIDE 30 ML UDC PO PRN (17:20)
[2022-10-02 20:33] VITALS: BP 110/69
[2022-10-02] MEDS: LATANOPROST EYE DROP 0.005% 2.5 ML BOTTLE OP SCH (21:00)
[2022-10-02] MEDS: QUETIAPINE FUMARATE 100 MG TABLET PO SCH (21:00)
[2022-10-02] MEDS: ZOLPIDEM TARTRATE 5 MG TABLET PO PRN (23:33)
--- NOTE | 2022-10-02 23:35 | NUR ---
Pt c/o insomnia. Least restrictive measures ineffective. Ambien 5 mg po prn given as ordered. Will continue to monitor.
--- NOTE | 2022-10-03 00:40 | NUR ---
Post 1 hr Ambien effective. Pt asleep in bed easy to arouse. Frequent visual check done for safety. Will continue to monitor.
[2022-10-03 08:00] VITALS: BP 130/97
[2022-10-03] MEDS: SIMVASTATIN 20 MG TABLET PO SCH (08:24)
[2022-10-03] MEDS: THYROID 30 MG TABLET PO SCH (08:24)
[2022-10-03] MEDS: DIVALPROEX SODIUM 500 MG TABLET.DR PO SCH ×2 (08:24→17:01)
[2022-10-03] MEDS: OLANZAPINE 2.5 MG TABLET PO SCH ×3 (08:25→17:01)
[2022-10-03] MEDS: PANTOPRAZOLE 40 MG TABLET.DR PO SCH (08:25)
[2022-10-03] MEDS: METFORMIN 500 MG TABLET PO SCH (08:25)
[2022-10-03] MEDS: SERTRALINE HCL 25 MG TABLET PO SCH (08:25)
[2022-10-03] MEDS: GABAPENTIN 100 MG CAPSULE PO SCH ×3 (08:25→17:01)
[2022-10-03] MEDS: FAMOTIDINE (20 MG) 20 MG TABLET PO SCH ×2 (08:25→17:01)
[2022-10-03] MEDS: DOCUSATE SODIUM 100 MG CAPSULE PO SCH ×2 (08:25→17:01)
[2022-10-03] MEDS: CARVEDILOL 3.125 MG TABLET PO SCH ×2 (08:25→17:01)
[2022-10-03] MEDS: ASPIRIN 81 MG TAB.CHEW PO SCH (08:25)
[2022-10-03] MEDS: POLYVINYL ALCOHOL 15 ML BOTTLE OP SCH ×2 (08:26→17:02)
[2022-10-03] MEDS ORDERED: SERTRALINE HCL 25 MG TABLET PO SCH (09:00)
[2022-10-03 12:00] VITALS: BP 130/73
[2022-10-03 19:34] VITALS: BP 137/83
[2022-10-03] MEDS: QUETIAPINE FUMARATE 100 MG TABLET PO SCH (21:00)
[2022-10-03] MEDS: LATANOPROST EYE DROP 0.005% 2.5 ML BOTTLE OP SCH (21:01)
[2022-10-03] MEDS: ZOLPIDEM TARTRATE 5 MG TABLET PO PRN (21:35)
[2022-10-03] MEDS: hydrOXYzine PAMOATE 25 MG CAPSULE PO PRN (23:52)
[2022-10-04 08:00] VITALS: BP 144/92
[2022-10-04] MEDS: DOCUSATE SODIUM 100 MG CAPSULE PO SCH ×2 (08:25→16:40)
[2022-10-04] MEDS: PANTOPRAZOLE 40 MG TABLET.DR PO SCH (08:25)
[2022-10-04] MEDS: ASPIRIN 81 MG TAB.CHEW PO SCH (08:25)
[2022-10-04] MEDS: SERTRALINE HCL 25 MG TABLET PO SCH (08:25)
[2022-10-04] MEDS: THYROID 30 MG TABLET PO SCH (08:25)
[2022-10-04] MEDS: SIMVASTATIN 20 MG TABLET PO SCH (08:25)
[2022-10-04] MEDS: OLANZAPINE 2.5 MG TABLET PO SCH ×2 (08:25→16:41)
[2022-10-04] MEDS: FAMOTIDINE (20 MG) 20 MG TABLET PO SCH ×2 (08:26→16:40)
[2022-10-04] MEDS: GABAPENTIN 100 MG CAPSULE PO SCH ×3 (08:26→16:40)
[2022-10-04] MEDS: CARVEDILOL 3.125 MG TABLET PO SCH ×2 (08:26→16:45)
[2022-10-04] MEDS: METFORMIN 500 MG TABLET PO SCH (08:28)
[2022-10-04] MEDS: DIVALPROEX SODIUM 500 MG TABLET.DR PO SCH ×2 (08:28→16:40)
[2022-10-04] MEDS: POLYVINYL ALCOHOL 15 ML BOTTLE OP SCH ×2 (08:29→16:45)
[2022-10-04 13:25] LABS: THYROID STIMULATING HORMONE 1.394 uIU/mL (0.358-3.74)
[2022-10-04 16:00] VITALS: BP 134/86
[2022-10-04 20:55] VITALS: BP 143/86
[2022-10-04] MEDS: QUETIAPINE FUMARATE 100 MG TABLET PO SCH (21:16)
[2022-10-04] MEDS: LATANOPROST EYE DROP 0.005% 2.5 ML BOTTLE OP SCH (21:16)
[2022-10-04] MEDS: ZOLPIDEM TARTRATE 5 MG TABLET PO PRN (22:07)
[2022-10-05 08:00] VITALS: BP 127/67
[2022-10-05] MEDS: METFORMIN 500 MG TABLET PO SCH (08:29)
[2022-10-05] MEDS: OLANZAPINE 2.5 MG TABLET PO SCH ×2 (08:29→17:12)
[2022-10-05] MEDS: SERTRALINE HCL 25 MG TABLET PO SCH (08:29)
[2022-10-05] MEDS: SIMVASTATIN 20 MG TABLET PO SCH (08:30)
[2022-10-05] MEDS: CARVEDILOL 3.125 MG TABLET PO SCH ×2 (08:30→17:13)
[2022-10-05] MEDS: FAMOTIDINE (20 MG) 20 MG TABLET PO SCH ×2 (08:30→17:12)
[2022-10-05] MEDS: ASPIRIN 81 MG TAB.CHEW PO SCH (08:30)
[2022-10-05] MEDS: DIVALPROEX SODIUM 500 MG TABLET.DR PO SCH ×2 (08:30→21:19)
[2022-10-05] MEDS: PANTOPRAZOLE 40 MG TABLET.DR PO SCH (08:30)
[2022-10-05] MEDS: GABAPENTIN 100 MG CAPSULE PO SCH ×3 (08:30→17:12)
[2022-10-05] MEDS: DOCUSATE SODIUM 100 MG CAPSULE PO SCH ×2 (08:31→17:12)
[2022-10-05] MEDS: THYROID 30 MG TABLET PO SCH (08:41)
[2022-10-05] MEDS: POLYVINYL ALCOHOL 15 ML BOTTLE OP SCH ×2 (09:00→17:12)
--- NOTE | 2022-10-05 11:31 | NUR ---
Court Notification: SW contacted pt's brother Adrian ([phone]) and notified of pt's 2410 hearing.
--- NOTE | 2022-10-05 14:47 | NUR ---
Court Hearing: Patient's court hearing for [id number] was today and it was upheld for GD.
[2022-10-05 16:00] VITALS: BP 139/79
[2022-10-05 19:57] VITALS: BP 125/82
[2022-10-05] MEDS: QUETIAPINE FUMARATE 100 MG TABLET PO SCH (21:19)
[2022-10-05] MEDS: LATANOPROST EYE DROP 0.005% 2.5 ML BOTTLE OP SCH (21:20)
[2022-10-06 08:00] VITALS: BP 106/67
[2022-10-06] MEDS: ASPIRIN 81 MG TAB.CHEW PO SCH (08:31)
[2022-10-06] MEDS: FAMOTIDINE (20 MG) 20 MG TABLET PO SCH ×2 (08:31→16:32)
[2022-10-06] MEDS: GABAPENTIN 100 MG CAPSULE PO SCH ×3 (08:31→16:32)
[2022-10-06] MEDS: METFORMIN 500 MG TABLET PO SCH (08:31)
[2022-10-06] MEDS: SIMVASTATIN 20 MG TABLET PO SCH (08:31)
[2022-10-06] MEDS: THYROID 30 MG TABLET PO SCH (08:31)
[2022-10-06] MEDS: DOCUSATE SODIUM 100 MG CAPSULE PO SCH ×2 (08:32→16:32)
[2022-10-06] MEDS: PANTOPRAZOLE 40 MG TABLET.DR PO SCH (08:32)
[2022-10-06] MEDS: CARVEDILOL 3.125 MG TABLET PO SCH ×2 (08:32→16:33)
[2022-10-06] MEDS: OLANZAPINE 2.5 MG TABLET PO SCH ×2 (08:32→16:32)
[2022-10-06] MEDS: POLYVINYL ALCOHOL 15 ML BOTTLE OP SCH ×2 (08:39→17:03)
[2022-10-06 16:00] VITALS: BP 132/80
[2022-10-06 19:49] VITALS: BP 113/74
--- NOTE | 2022-10-06 20:05 | NUR ---
GPS PLANT PROTECTION GUARD NOTE: PATIENT COMFORTABLY RESTING IN HER ROOM, NO S/SX OF ACUTE DISTRESS NOTED, BREATHING EVEN AND UNLABORED @ RA.PATIENT. DENIES SI/HI AT THIS TIME.ENCOURAGE TO VERBALIZED ANY FEELING OR CONCERN, SAFETY MEASURES IN PLACE. WILL CONTINUE TO MONITOR SAFETY AND ANTICIPATE / ATTEND NEEDS.
[2022-10-06] MEDS: DIVALPROEX SODIUM 500 MG TABLET.DR PO SCH (21:03)
[2022-10-06] MEDS: LATANOPROST EYE DROP 0.005% 2.5 ML BOTTLE OP SCH (21:04)
--- NOTE | 2022-10-06 21:26 | NUR ---
DUE MEDICATIONS GIVEN TO PT , TOLERATED., COMPLIANT WITH HER MEDS AT THIS TIME. PT NOTED WITH VERY DEMANDING BEHAVIOR.
[2022-10-06] MEDS ORDERED: QUETIAPINE FUMARATE 100 MG TABLET PO SCH (22:00)
--- NOTE | 2022-10-07 01:03 | NUR ---
Pt appears sleeping at this time, safety measures observed, pt is easy to arouse, no s/sx of distress or discomfort noted. Will cont to monitor.
--- NOTE | 2022-10-07 06:09 | NUR ---
Pt slept approx 3 hrs last night, compliant with her meds and tolerated meds, no other significant changes noted during shift. Pt is awake at this time, no s/sx of resp distress. Cont to monitor and will endorse danilo to oncoming am nurse.
[2022-10-07 08:00] VITALS: BP 125/67
[2022-10-07] MEDS: THYROID 30 MG TABLET PO SCH (08:21)
[2022-10-07] MEDS: OLANZAPINE 2.5 MG TABLET PO SCH ×3 (08:21→16:32)
[2022-10-07] MEDS: FAMOTIDINE (20 MG) 20 MG TABLET PO SCH ×2 (08:21→16:32)
[2022-10-07] MEDS: GABAPENTIN 100 MG CAPSULE PO SCH ×3 (08:21→16:32)
[2022-10-07] MEDS: DOCUSATE SODIUM 100 MG CAPSULE PO SCH ×2 (08:21→16:32)
[2022-10-07] MEDS: ASPIRIN 81 MG TAB.CHEW PO SCH (08:21)
[2022-10-07] MEDS: METFORMIN 500 MG TABLET PO SCH (08:21)
[2022-10-07] MEDS: SIMVASTATIN 20 MG TABLET PO SCH (08:21)
[2022-10-07] MEDS: PANTOPRAZOLE 40 MG TABLET.DR PO SCH (08:22)
[2022-10-07] MEDS: CARVEDILOL 3.125 MG TABLET PO SCH ×2 (08:22→16:32)
[2022-10-07] MEDS: POLYVINYL ALCOHOL 15 ML BOTTLE OP SCH ×2 (08:23→16:37)
--- NOTE | 2022-10-07 09:13 | NUR ---
RN-NOTES ZYPREXA 7.5MG P.O NOT GIVEN DUE TO ZYPREXA 5MG P.O WAS ADMINISTERED AROUND 0812 AM,DR. MARIN IN THE UNIT AND AWARE.
--- NOTE | 2022-10-07 11:14 | NUR ---
AYANA Coordination of Care: Patient will follow up with (Psychiatrist) Dr. Viri Ramos located at [id number] [place] [address] [address], [place] [address]; ([phone]) on October 25 at 9AM.
[2022-10-07 16:00] VITALS: BP 126/72
--- NOTE | 2022-10-07 18:57 | NUR ---
RN-NOTES PATIENT VISIBLE IN THE UNIT,A/O X3,AMBULATORY STEADY GAIT. ATTENDED GROUPS.NOTED PATIENT WITH EASILY ANGRY,NEEDY,DEMANDING BEHAVIOR. ALL NEEDS ATTENDED AND ANTICIPATED. WILL CONT. MONITORING FOR SAFETY AND BEHAVIOR. WILL ENDORSE TO INCOMING NURSE FOR CONTINUITY OF CARE.
--- NOTE | 2022-10-07 19:30 | NUR ---
GPS RN NOTE, RECEIVED PATIENT AWAKE AND IN BED, NO S/S OR COMPLAINTS OF PAIN AT THIS TIME. PATIENT IS DISPLAYING NO S/S OF APPARENT DISTRESS AT THIS TIME. PATIENT BREATHING IS UNLABORED WITH EQUAL RISE AND FALL OF THE CHEST. PATIENT IS ALERT AND ORIENTED X 3 ON ROOM AIR. PATIENT IS COMPLIANT WITH MEDICATIONS, DEMANDING, ENTITLED, HAS POOR BOUNDARIES, NEEDS LIMIT SETTING, POLITE AT TIMES, ABLE TO BE REDIRECTED, AND COOPERATIVE AT TIMES. PATIENT DENIES SUICIDAL AND HOMICIDAL IDEATIONS AT THIS TIME. PATIENT ASSISTED WITH TURNING AND REPOSITIONING Q2HR AND PRN FOR COMFORT AND CIRCULATION. PATIENT HAS NO NEEDS AT THIS TIME. PATIENT EDUCATED ON THE USE OF THE CALL RHOADES. PATIENT BED SIDE RAILS UP X 2 FOR SAFETY. PATIENT BED IS LOCKED, LOW, WITH BED ALARM ON. WILL CONTINUE TO MONITOR THIS PATIENT Q15 MINUTES WITH THE HELP OF STAFF TO MAINTAIN SAFETY.
[2022-10-07 20:00] VITALS: BP 146/87
[2022-10-07] MEDS: TRAZODONE 50 MG TABLET PO SCH (21:13)
[2022-10-07] MEDS: DIVALPROEX SODIUM 500 MG TABLET.DR PO SCH (21:14)
[2022-10-07] MEDS: LATANOPROST EYE DROP 0.005% 2.5 ML BOTTLE OP SCH (21:14)
[2022-10-08 08:00] VITALS: BP 129/78
[2022-10-08] MEDS: THYROID 30 MG TABLET PO SCH (09:11)
[2022-10-08] MEDS: PANTOPRAZOLE 40 MG TABLET.DR PO SCH (09:12)
[2022-10-08] MEDS: ASPIRIN 81 MG TAB.CHEW PO SCH (09:12)
[2022-10-08] MEDS: FAMOTIDINE (20 MG) 20 MG TABLET PO SCH ×2 (09:12→16:24)
[2022-10-08] MEDS: OLANZAPINE 2.5 MG TABLET PO SCH ×2 (09:12→16:24)
[2022-10-08] MEDS: SIMVASTATIN 20 MG TABLET PO SCH (09:12)
[2022-10-08] MEDS: DOCUSATE SODIUM 100 MG CAPSULE PO SCH ×2 (09:12→16:24)
[2022-10-08] MEDS: GABAPENTIN 100 MG CAPSULE PO SCH ×3 (09:12→16:24)
[2022-10-08] MEDS: METFORMIN 500 MG TABLET PO SCH (09:12)
[2022-10-08] MEDS: CARVEDILOL 3.125 MG TABLET PO SCH ×2 (09:13→16:25)
[2022-10-08] MEDS: POLYVINYL ALCOHOL 15 ML BOTTLE OP SCH ×2 (09:14→17:14)
[2022-10-08 16:00] VITALS: BP 120/68
--- NOTE | 2022-10-08 18:22 | NUR ---
GPS RN NOTE, PATIENT AWAKE AND IN BED, PATIENT IS ALERT, ORIENTED.X 3. NO S/S OF PAIN OR DISCOMFORT AT THIS TIME. PATIENT IS CALM AND NOT DISPLAYING ANY AGGRESSIVE BEHAVIOR AT THIS TIME. NO SI/HI, PATIENT IS IN NO APPARENT DISTRESS. NO RESPIRATORY DISTRESS NOTED, BREATHING EVEN AND UNLABORED. PATIENT IS COMPLIANT WITH MEDICATIONS THE ENTIRE SHIFT. DEMANDING AT TIMES AND HAS POOR BOUNDARIES,BUT NEEDS TO SET LIMITS WITH THE PATIENT. PATIENT IS COOPERATIVE AND ABLE TO VERBALIZE NEEDS. PATIENT IS ABLE TO AMBULATE FOR COMFORT AND CIRCULATION. PATIENT IS BEING MONITORED FOR SAFETY. ALL SAFETY MEASURES IN PLACE. BED LOCKED AND IN LOWEST POSITION WITH BED ALARM ON. WILL ENDORSE TO INCOMING NURSE FOR CONTINUITY OF CARE
[2022-10-08 20:00] VITALS: BP 116/63
[2022-10-08] MEDS: DIVALPROEX SODIUM 500 MG TABLET.DR PO SCH (21:31)
[2022-10-08] MEDS: TRAZODONE 50 MG TABLET PO SCH (21:31)
[2022-10-08] MEDS: LATANOPROST EYE DROP 0.005% 2.5 ML BOTTLE OP SCH (21:33)
[2022-10-09] MEDS: ZOLPIDEM TARTRATE 5 MG TABLET PO PRN (01:29)
--- NOTE | 2022-10-09 04:40 | NUR ---
GPS RN NOTES: BEGINNING OF THE SHIFT SHE WAS TALKING LOUDLY AND STATED SHE WAS MAD AT THE DOCTOR FOR NOT ORDER THE CORRECT MEDICATION. SHE COMMENTED AMBIEN DOES NOT WORK ON HER. DEPAKOTE AND DESYREL AREN'T HELPFUL. SHE DID TAKE HER MEDICATION ORDERED. AT 01:30 SHE WALKED OUT WITH HER WALKER AND REQUESTED AMBIEN. SHE IS HYPERVERBAL.
[2022-10-09 08:00] VITALS: BP 108/68
[2022-10-09] MEDS: PANTOPRAZOLE 40 MG TABLET.DR PO SCH (08:43)
[2022-10-09] MEDS: SIMVASTATIN 20 MG TABLET PO SCH (08:43)
[2022-10-09] MEDS: ASPIRIN 81 MG TAB.CHEW PO SCH (08:43)
[2022-10-09] MEDS: FAMOTIDINE (20 MG) 20 MG TABLET PO SCH ×2 (08:43→16:35)
[2022-10-09] MEDS: OLANZAPINE 2.5 MG TABLET PO SCH ×2 (08:44→16:40)
[2022-10-09] MEDS: DOCUSATE SODIUM 100 MG CAPSULE PO SCH ×2 (08:44→16:35)
[2022-10-09] MEDS: METFORMIN 500 MG TABLET PO SCH (08:44)
[2022-10-09] MEDS: GABAPENTIN 100 MG CAPSULE PO SCH ×3 (08:45→16:35)
[2022-10-09] MEDS: THYROID 30 MG TABLET PO SCH (08:46)
[2022-10-09] MEDS: CARVEDILOL 3.125 MG TABLET PO SCH ×2 (08:48→16:36)
[2022-10-09] MEDS: POLYVINYL ALCOHOL 15 ML BOTTLE OP SCH ×2 (08:50→16:38)
[2022-10-09 16:00] VITALS: BP 125/66
[2022-10-09 20:10] VITALS: BP 137/77
[2022-10-09] MEDS: DIVALPROEX SODIUM 500 MG TABLET.DR PO SCH (21:08)
[2022-10-09] MEDS: TRAZODONE 50 MG TABLET PO SCH (21:09)
[2022-10-09] MEDS: LATANOPROST EYE DROP 0.005% 2.5 ML BOTTLE OP SCH (21:10)
[2022-10-10] MEDS: ZOLPIDEM TARTRATE 5 MG TABLET PO PRN (00:54)
[2022-10-10 08:00] VITALS: BP 131/67
[2022-10-10] MEDS: OLANZAPINE 2.5 MG TABLET PO SCH ×4 (08:48→17:54)
[2022-10-10] MEDS: FAMOTIDINE (20 MG) 20 MG TABLET PO SCH ×2 (08:49→17:54)
[2022-10-10] MEDS: ASPIRIN 81 MG TAB.CHEW PO SCH (08:49)
[2022-10-10] MEDS: DOCUSATE SODIUM 100 MG CAPSULE PO SCH ×2 (08:49→17:54)
[2022-10-10] MEDS: SIMVASTATIN 20 MG TABLET PO SCH (08:49)
[2022-10-10] MEDS: CARVEDILOL 3.125 MG TABLET PO SCH ×2 (08:49→17:55)
[2022-10-10] MEDS: PANTOPRAZOLE 40 MG TABLET.DR PO SCH (08:49)
[2022-10-10] MEDS: METFORMIN 500 MG TABLET PO SCH (08:49)
[2022-10-10] MEDS: GABAPENTIN 100 MG CAPSULE PO SCH (08:49)
[2022-10-10] MEDS: THYROID 30 MG TABLET PO SCH (08:49)
[2022-10-10] MEDS: POLYVINYL ALCOHOL 15 ML BOTTLE OP SCH ×2 (08:50→17:55)
[2022-10-10] MEDS: hydrOXYzine PAMOATE 25 MG CAPSULE PO PRN (08:59)
[2022-10-10] MEDS ORDERED: GABAPENTIN 100 MG CAPSULE PO SCH (09:00)
--- NOTE | 2022-10-10 09:00 | NUR ---
NURSE NOTE: PT AGITATED AT THIS TIME. VISTARIL PO ADMINISTERED ORDERED. PT MARYCARMEN WELL. WILL CONT TO MONITOR.
[2022-10-10] MEDS: GABAPENTIN 300 MG CAPSULE PO SCH ×3 (09:14→17:55)
--- NOTE | 2022-10-10 10:00 | NUR ---
NURSE NOTE: PT CALM, VISTARIL EFFECTIVE AT THIS TIME. WILL CONT TO MONITOR.
[2022-10-10 16:00] VITALS: BP 117/68
[2022-10-10 19:39] VITALS: BP 102/61
[2022-10-10] MEDS: DIVALPROEX SODIUM 500 MG TABLET.DR PO SCH (21:03)
[2022-10-10] MEDS: TRAZODONE 50 MG TABLET PO SCH (21:03)
[2022-10-10] MEDS: LATANOPROST EYE DROP 0.005% 2.5 ML BOTTLE OP SCH (21:14)
--- NOTE | 2022-10-11 07:40 | NUR ---
rn opening note pt is alert and oriented x2-3. pt is verbally responsive and able to make needs known.pt is ambulatory with walker. no signs of pain or discomfort at this time. all safety precautions in place.
[2022-10-11 08:00] VITALS: BP 156/83
[2022-10-11] MEDS: THYROID 30 MG TABLET PO SCH (10:06)
[2022-10-11] MEDS: FAMOTIDINE (20 MG) 20 MG TABLET PO SCH ×2 (10:06→17:00)
[2022-10-11] MEDS: DOCUSATE SODIUM 100 MG CAPSULE PO SCH ×2 (10:06→17:00)
[2022-10-11] MEDS: PANTOPRAZOLE 40 MG TABLET.DR PO SCH (10:07)
[2022-10-11] MEDS: CARVEDILOL 3.125 MG TABLET PO SCH ×2 (10:07→17:03)
[2022-10-11] MEDS: SIMVASTATIN 20 MG TABLET PO SCH (10:07)
[2022-10-11] MEDS: METFORMIN 500 MG TABLET PO SCH (10:07)
[2022-10-11] MEDS: ASPIRIN 81 MG TAB.CHEW PO SCH (10:11)
[2022-10-11] MEDS: GABAPENTIN 300 MG CAPSULE PO SCH ×3 (10:12→17:00)
[2022-10-11] MEDS: OLANZAPINE 5 MG TABLET PO SCH ×3 (10:15→17:00)
[2022-10-11] MEDS: POLYVINYL ALCOHOL 15 ML BOTTLE OP SCH ×2 (10:16→17:03)
[2022-10-11 15:54] VITALS: BP 114/68
--- NOTE | 2022-10-11 18:25 | NUR ---
RN-NOTES PATIENT C/O OF PAINFUL AND FREQUENT URINATION. JAMIE ZIMMER MADE AWARE WITH T.O ORDER OF UA NOTED AND CARRIED OUT.
--- NOTE | 2022-10-11 19:10 | NUR ---
rn closing note pt is alert and oriented x2-3. pt is verbally responsive and able to make needs known.pt is ambulatory with walker. no signs of pain or discomfort at this time. all safety precautions in place. davide gan ordered urinalysis. endorsed to date night sitter rn for contuity of care
[2022-10-11 19:55] VITALS: BP 120/86
[2022-10-11] MEDS: DIVALPROEX SODIUM 500 MG TABLET.DR PO SCH (21:00)
[2022-10-11] MEDS: LATANOPROST EYE DROP 0.005% 2.5 ML BOTTLE OP SCH (21:01)
[2022-10-11] MEDS: TRAZODONE 50 MG TABLET PO SCH (21:01)
[2022-10-12 08:00] VITALS: BP 133/73
[2022-10-12] MEDS: OLANZAPINE 5 MG TABLET PO SCH ×3 (09:21→17:30)
[2022-10-12] MEDS: METFORMIN 500 MG TABLET PO SCH (09:21)
[2022-10-12] MEDS: PANTOPRAZOLE 40 MG TABLET.DR PO SCH (09:22)
[2022-10-12] MEDS: THYROID 30 MG TABLET PO SCH (09:22)
[2022-10-12] MEDS: GABAPENTIN 300 MG CAPSULE PO SCH ×3 (09:22→17:30)
[2022-10-12] MEDS: DOCUSATE SODIUM 100 MG CAPSULE PO SCH ×2 (09:22→17:29)
[2022-10-12] MEDS: FAMOTIDINE (20 MG) 20 MG TABLET PO SCH ×2 (09:22→17:30)
[2022-10-12] MEDS: SIMVASTATIN 20 MG TABLET PO SCH (09:22)
[2022-10-12] MEDS: ASPIRIN 81 MG TAB.CHEW PO SCH (09:22)
[2022-10-12] MEDS: CARVEDILOL 3.125 MG TABLET PO SCH ×2 (09:23→17:30)
[2022-10-12] MEDS: POLYVINYL ALCOHOL 15 ML BOTTLE OP SCH ×2 (09:23→17:29)
--- NOTE | 2022-10-12 12:00 | NUR ---
NURSE NOTE: PT CALM AT THIS TIME. VISTARIL EFFECTIVE AT THIS TIME. WILL CONT TO MONITOR. Addendum: 10/12/22 at 1848 by CLAUDIA MOSQUEDA RN WRONG TIME, MEANT TO PUT 1400.
[2022-10-12] MEDS: hydrOXYzine PAMOATE 25 MG CAPSULE PO PRN (12:57)
--- NOTE | 2022-10-12 13:00 | NUR ---
NURSE NOTE: PT AGITATED AT THIS TIME. VISTARIL PO ADMINISTERED ORDERED. PT MARYCARMEN WELL. WILL CONT TO MONITOR.
[2022-10-12 16:00] VITALS: BP 125/85
[2022-10-12] MEDS: MAGNESIUM HYDROXIDE 30 ML UDC PO PRN (18:22)
[2022-10-12 19:43] VITALS: BP 128/70
[2022-10-12 20:00] VITALS: BP_SYST 128; BP_SYST 133; BP_DIAS 70; BP_DIAS 73
--- NOTE | 2022-10-12 20:08 | NUR ---
Patient is visible, ambulating the hallways with her walker, requesting her medications be given to her so that she can sleep, calm and pleasant.
[2022-10-12] MEDS: DIVALPROEX SODIUM 500 MG TABLET.DR PO SCH (21:38)
[2022-10-12] MEDS: TRAZODONE 50 MG TABLET PO SCH (21:39)
[2022-10-12] MEDS: LATANOPROST EYE DROP 0.005% 2.5 ML BOTTLE OP SCH (21:43)
[2022-10-12] MEDS: ZOLPIDEM TARTRATE 5 MG TABLET PO PRN (23:22)
[2022-10-13] MEDS: ZOLPIDEM TARTRATE 5 MG TABLET PO PRN ×2 (01:48→01:49)
[2022-10-13 08:00] VITALS: BP 129/64
[2022-10-13] MEDS: GABAPENTIN 300 MG CAPSULE PO SCH ×2 (08:48→13:06)
[2022-10-13] MEDS: ASPIRIN 81 MG TAB.CHEW PO SCH (08:48)
[2022-10-13] MEDS: FAMOTIDINE (20 MG) 20 MG TABLET PO SCH (08:48)
[2022-10-13] MEDS: DOCUSATE SODIUM 100 MG CAPSULE PO SCH (08:48)
[2022-10-13] MEDS: SIMVASTATIN 20 MG TABLET PO SCH (08:48)
[2022-10-13] MEDS: PANTOPRAZOLE 40 MG TABLET.DR PO SCH (08:48)
[2022-10-13] MEDS: THYROID 30 MG TABLET PO SCH (08:48)
[2022-10-13] MEDS: OLANZAPINE 5 MG TABLET PO SCH ×2 (08:48→13:06)
[2022-10-13] MEDS: METFORMIN 500 MG TABLET PO SCH (08:48)
[2022-10-13 08:49] VITALS: BP 129/64
[2022-10-13] MEDS: CARVEDILOL 3.125 MG TABLET PO SCH (08:49)
[2022-10-13] MEDS: POLYVINYL ALCOHOL 15 ML BOTTLE OP SCH (08:56)
--- NOTE | 2022-10-13 10:19 | NUR ---
SW Discharge Note: [place] [address] [address]; ([phone]). Please arrange taxi transportation at 2Pm. Patient has a caregiver Bonnie ([phone]) at home. Patients brother Adrian ([phone]) is aware and agreeable. Patient is alert and oriented x3. Patient is happy to be going back home. Patient denies suicidal or homicidal ideation. Patient denies visual/auditory hallucinations. Patient will have a caregiver who will take care of pt during the noon and night. Patient will follow up with (Psychiatrist) Dr. Viri Ramos located at [address] [facility] [address], [place] [address]; ([phone]) on October 25 at 9AM. Patient will follow up with ([facility]) [place] [address] [place] [address] ([phone]). Patient presents with euthymic mood and congruent affect.
--- NOTE | 2022-10-13 14:27 | NUR ---
RN-DISCHARGE NOTES PATIENT HAD A DISCHARGE ORDER FROM DR. MARIN, JAMIE LEE MEDICALLY DISCHARGE PATIENT. PATIENT DID NOT VERBALIZE SI/HI,DENIES VISUAL/AUDITORY HALLUCINATIONS AT THE TIME SHE LEFT THE UNIT. PATIENT LEFT THE UNIT IN STABLE CONDITION A/O X4 NO ACUTE DISTRESS NOTED. ALL BELONGINGS WAS GIVEN BACK TO THE PATIENT.PATIENT REFUSED FULL BODY ASSESSMENT PRIOR TO DISCHARGE.PATIENT LEFT THE UNIT AMBULATORY WITH WALKER. ASSISTED BY ONE EDGE BURNISHER UPPERS TO THE LOBBY FOR SAFETY, LEFT VIA TAXI.
== END 2022-10-13 14:28 | disposition home or self-care (01) | DRG 885 ==
LOC: ER 21:26 → TRANSITION 09-29 03:40 → GPS 09-29 07:48
PROVIDERS: ADMIT Psychiatry & Neurology Psychiatry; ATTEND Internal Medicine
DX: F31.64 Bipolar disorder, current episode mixed, severe, with psychotic features (principal); E11.9 Type 2 diabetes mellitus without complications; I10 Essential (primary) hypertension; E03.9 Hypothyroidism, unspecified; E11.42 Type 2 diabetes mellitus with diabetic polyneuropathy; M62.81 Muscle weakness (generalized); R27.8 Other lack of coordination; E66.8 Other obesity; Z68.33 Body mass index [BMI] 33.0-33.9, adult; Z20.822 Contact with and (suspected) exposure to COVID-19
CPT/HCPCS: 36415; 80048-TC; 80053-TC; 80061-TC; 80076-TC; 80164-TC; 81001; 82962-TC; 84439-TC; 84443-TC; 85025-TC; 87081-TC; C9803; G0480; Q0177

== ENCOUNTER 2023-09-10 19:08 | Inpatient (IN) | payer MEDICARE, OTHER ==
[~2023-09-10] VITALS: Ht 167.6 cm; Wt 59.0 kg
[~2023-09-10 19:08] MED LIST changes: +ACET-868 PO; +BIMA2.5D5 EACHEYE; +BISA10SU11 RC; +CALC-883 PO; +CARV3.122 PO; +CLON1TAB12 PO; +DIVA500T2 PO; -ERGO500040 PO; -FURO-144 PO; +HYDR25CA PO; -KETO5DRO RIGHTEYE; +LATA7.5D EACHEYE; -LISI20TA30 PO; +MAG30ORA PO; +MAGN400O6 PO; +OLAN2.5T3 PO; +OLAN20TA3 PO; -OMEP40CA21 PO; +OXCA300T15 PO; -OXYB-58 PO; +OXYB10TA4 PO; +PANT40TA49 PO; +PE/S52CR RC; -PRED5DRO17 RIGHTEYE; +QUET50TA PO; +SENN-18 PO; +SERT25TA PO; +SIMV-46 PO; +THYR90TA PO; +TRAZ-257 PO; +VASCULERA PO
[2023-09-10 19:12] VITALS: O2SAT 98
[2023-09-10 19:57] LABS: BASOPHILS # (AUTO) 0.1 K/uL (0.0-0.2); BASOPHILS % (AUTO) 1.1 % (0.0-2.0); EOSINOPHILS # (AUTO) 0.2 K/uL (0.0-0.7); EOSINOPHILS % (AUTO) 3.3 % (0.0-6.0); HEMATOCRIT 38 % (33-45); HEMOGLOBIN 12.8 g/dL (11.5-14.8); LYMPHOCYTES % (AUTO) 27.9 % (20.0-44.0); MEAN CORPUSCULAR HEMOGLOBIN 32 PG (26.0-33.0); MEAN CORPUSCULAR HGB CONC 34 g/dl (31.0-36.0); MEAN CORPUSCULAR VOLUME 94 fL (82-100); MONOCYTES # (AUTO) 0.4 K/uL (0.1-1.30); MONOCYTES % (AUTO) 5.1 % (2.0-12.0); NEUTROPHILS # (AUTO) 4.4 K/uL (1.8-8.9); NEUTROPHILS % (AUTO) 62.6 % (43.0-81.0); PLATELET COUNT (AUTO) 347 K/uL (150-450); RED BLOOD CELL COUNT(AUTO) 4.03 MIL/uL (4.0-5.2); RED CELL DISTRIBUTION WIDTH 14.2 % (11.5-15.0)
[2023-09-10 20:13] LABS: ALANINE AMINOTRANSFERASE 66 U/L (12-78); ALBUMIN 3.3 g/dL (3.4-5.0); ALKALINE PHOSPHATASE 145 U/L (46-116); ASPARTATE AMINOTRANSFERASE 47 U/L (15-37); BILIRUBIN,DIRECT 0.1 mg/dL (0.0-0.2); BILIRUBIN,TOTAL 0.3 mg/dL (0.2-1.0); CALCIUM, SERUM 9.6 mg/dL (8.5-10.1); CARBON DIOXIDE 26 mmol/L (21-32); CHLORIDE 100 mmol/L (98-107); CREATININE 0.9 mg/dL (0.6-1.3); GLUCOSE 175 mg/dL (74-106); POTASSIUM 3.4 mmol/L (3.5-5.1); SODIUM SERUM 135 mmol/L (136-145); TOTAL PROTEIN, SERUM 6.9 g/dL (6.4-8.2); UREA NITROGEN, BLOOD 20 mg/dL (7-18)
[2023-09-10 20:15] LABS: ACETAMINOPHEN 0 ug/ml (10-30); ALCOHOL, BLOOD < 3 mg/dL (0-10)
[2023-09-10 23:25] LABS: APPEARANCE,URINE CLEAR (CLEAR); BILIRUBIN,URINE NEGATIVE (NEGATIVE); BLOOD, URINE NEGATIVE Ery/uL (NEGATIVE); COLOR,URINE YELLOW (YELLOW); KETONES,URINE NEGATIVE (NEGATIVE); LEUKOCYTE ESTERASE ,URINE TRACE (NEGATIVE); NITRITE, URINE POSITIVE (NEGATIVE); PROTEIN,URINE NEGATIVE (NEGATIVE); UGLUCOSE NEGATIVE (NEGATIVE); UROBILINOGEN,URINE 0.2 EU/dL (0.2)
[2023-09-10 23:38] LABS: AMPHETAMINE, URINE NEGATIVE (NEGATIVE); BARBITURATE, URINE NEGATIVE (NEGATIVE); CANNABINOID, URINE NEGATIVE (NEGATIVE); COCCAINE, URINE NEGATIVE (NEGATIVE); OPIATE, URINE NEGATIVE (NEGATIVE); PHENCYCLIDINE SCREEN,URINE NEGATIVE (NEGATIVE)
[2023-09-10 23:39] LABS: BENZODIAZEPINE, URINE POSITIVE (NEGATIVE)
[2023-09-10 23:52] LABS: ADD URINE CULTURE YES; BACTERIA,URINE 4+ /HPF (None Seen); RBC,URINE NONE SEEN /HPF (0-2)
[2023-09-11] MEDS ORDERED: ESCI20TA PO (03:22)
[2023-09-11] MEDS ORDERED: IRBE1TAB41 PO (03:22)
[2023-09-11] MEDS ORDERED: SPIR25TA6 PO (03:22)
[2023-09-11] MEDS ORDERED: LORAZEPAM 0.5 MG TABLET PO PRN (07:30)
[2023-09-11] MEDS ORDERED: ACETAMINOPHEN 325 MG TABLET PO PRN (07:30)
[2023-09-11] MEDS ORDERED: MAGNESIUM HYDROXIDE 30 ML UDC PO PRN (07:30)
[2023-09-11] MEDS ORDERED: ZOLPIDEM TARTRATE 5 MG TABLET PO PRN (07:30)
[2023-09-11] MEDS ORDERED: MAG HYDROX/AL HYDROX/SIMETH 30 ML UDC PO PRN (07:30)
[2023-09-11] MEDS ORDERED: BLOOD SUGAR DIAGNOSTIC 1 EACH STRIP IN ONE (07:30)
[2023-09-11] MEDS ORDERED: CALC1TAB30 PO (07:53)
[2023-09-11] MEDS ORDERED: IBUP-1953 PO (07:53)
[2023-09-11] MEDS ORDERED: ERGO500093 PO (07:53)
[2023-09-11] MEDS ORDERED: SIMV-46 PO (07:53)
[2023-09-11 08:00] VITALS: BP 143/84; TEMP 97.7; O2SAT 100
[2023-09-11] MEDS: METFORMIN 500 MG TABLET PO SCH (09:44)
[2023-09-11] MEDS: ASPIRIN 81 MG TAB.CHEW PO SCH (09:45)
[2023-09-11] MEDS: DOCUSATE SODIUM 100 MG CAPSULE PO SCH ×2 (09:46→17:52)
[2023-09-11] MEDS: CARVEDILOL 3.125 MG TABLET PO SCH ×2 (09:46→17:52)
[2023-09-11] MEDS: FAMOTIDINE (20 MG) 20 MG TABLET PO SCH ×2 (09:46→17:51)
[2023-09-11] MEDS: SPIRONOLACTONE 25 MG TABLET PO SCH (09:46)
[2023-09-11] MEDS: OXCARBAZEPINE 150 MG TABLET PO SCH ×2 (13:06→17:52)
[2023-09-11 16:00] VITALS: BP 150/82; TEMP 97.9; O2SAT 95
[2023-09-11] MEDS: OLANZAPINE 2.5 MG TABLET PO SCH (17:51)
[2023-09-11] MEDS: ERGOCALCIFEROL (VITAMIN D 2) 50,000 UNIT CAPSULE PO SCH (18:43)
[2023-09-11 19:51] VITALS: BP 132/74; TEMP 97.7; O2SAT 96
[2023-09-11] MEDS: Z GUARD REMEDY 4 OZ OINT TP SCH (21:28)
[2023-09-11] MEDS: OLANZAPINE 10 MG TABLET PO SCH (21:31)
[2023-09-11] MEDS: SIMVASTATIN 20 MG TABLET PO SCH (21:31)
[2023-09-12 07:20] LABS: CHOLESTEROL 183 mg/dL (<200); HDL CHOLESTEROL 57 mg/dL (40-60); LDL 100 mg/dL (0-99); TRIGLYCERIDES 107 mg/dL (30-150)
[2023-09-12 07:21] LABS: ALBUMIN 3.1 g/dL (3.4-5.0); BILIRUBIN,TOTAL 0.4 mg/dL (0.2-1.0); CALCIUM, SERUM 9.3 mg/dL (8.5-10.1); POTASSIUM 3.8 mmol/L (3.5-5.1); TOTAL PROTEIN, SERUM 6.5 g/dL (6.4-8.2)
[2023-09-12 08:00] VITALS: BP 117/78; TEMP 97.9; O2SAT 97
[2023-09-12] MEDS: DOCUSATE SODIUM 100 MG CAPSULE PO SCH ×2 (09:17→16:53)
[2023-09-12] MEDS: OXCARBAZEPINE 150 MG TABLET PO SCH ×2 (09:17→16:53)
[2023-09-12] MEDS: ASPIRIN 81 MG TAB.CHEW PO SCH (09:17)
[2023-09-12] MEDS: SPIRONOLACTONE 25 MG TABLET PO SCH (09:18)
[2023-09-12] MEDS: METFORMIN 500 MG TABLET PO SCH (09:18)
[2023-09-12] MEDS: CARVEDILOL 3.125 MG TABLET PO SCH ×2 (09:18→16:53)
[2023-09-12] MEDS: OLANZAPINE 2.5 MG TABLET PO SCH ×3 (09:18→16:54)
[2023-09-12] MEDS: FAMOTIDINE (20 MG) 20 MG TABLET PO SCH ×2 (09:19→16:53)
[2023-09-12] MEDS: Z GUARD REMEDY 4 OZ OINT TP SCH ×2 (09:24→20:07)
[2023-09-12] MEDS: LORAZEPAM 0.5 MG TABLET PO PRN (10:55)
[2023-09-12] MEDS: ACETAMINOPHEN 325 MG TABLET PO PRN (14:43)
[2023-09-12 16:00] VITALS: BP 96/68; TEMP 98.7; O2SAT 96
[2023-09-12 20:27] VITALS: BP 104/51; TEMP 98.2; O2SAT 96
[2023-09-12] MEDS: SIMVASTATIN 20 MG TABLET PO SCH ×2 (21:33→21:46)
[2023-09-12] MEDS: OLANZAPINE 10 MG TABLET PO SCH ×2 (21:33→21:46)
[2023-09-13 08:00] VITALS: BP 112/69; TEMP 97.9; O2SAT 97
[2023-09-13] MEDS: METFORMIN 500 MG TABLET PO SCH (08:48)
[2023-09-13] MEDS: SPIRONOLACTONE 25 MG TABLET PO SCH (08:48)
[2023-09-13] MEDS: ASPIRIN 81 MG TAB.CHEW PO SCH (08:48)
[2023-09-13] MEDS: OLANZAPINE 2.5 MG TABLET PO SCH ×3 (08:49→16:23)
[2023-09-13] MEDS: CARVEDILOL 3.125 MG TABLET PO SCH ×2 (08:49→16:23)
[2023-09-13] MEDS: DOCUSATE SODIUM 100 MG CAPSULE PO SCH ×2 (08:49→16:23)
[2023-09-13] MEDS: OXCARBAZEPINE 150 MG TABLET PO SCH ×2 (08:49→16:23)
[2023-09-13] MEDS: FAMOTIDINE (20 MG) 20 MG TABLET PO SCH ×2 (08:49→16:23)
[2023-09-13] MEDS: Z GUARD REMEDY 4 OZ OINT TP SCH ×2 (08:51→21:25)
[2023-09-13 16:00] VITALS: BP 103/56; TEMP 98.1; O2SAT 97
[2023-09-13] MEDS: ACETAMINOPHEN 325 MG TABLET PO PRN (17:44)
[2023-09-13 20:22] VITALS: BP 104/58; TEMP 97.7; O2SAT 96
[2023-09-13] MEDS: OLANZAPINE 10 MG TABLET PO SCH (21:24)
[2023-09-13] MEDS: SIMVASTATIN 20 MG TABLET PO SCH (21:24)
[2023-09-13] MEDS: TEMAZEPAM 7.5 MG CAPSULE PO PRN (23:27)
[2023-09-14] MEDS: ACETAMINOPHEN 325 MG TABLET PO PRN (03:33)
[2023-09-14 08:00] VITALS: BP 149/89; TEMP 97.5; O2SAT 97
[2023-09-14] MEDS: DOCUSATE SODIUM 100 MG CAPSULE PO SCH ×2 (08:58→16:08)
[2023-09-14] MEDS: FAMOTIDINE (20 MG) 20 MG TABLET PO SCH ×2 (08:58→16:08)
[2023-09-14] MEDS: ASPIRIN 81 MG TAB.CHEW PO SCH (08:58)
[2023-09-14] MEDS: CARVEDILOL 3.125 MG TABLET PO SCH ×2 (08:59→16:09)
[2023-09-14] MEDS: SPIRONOLACTONE 25 MG TABLET PO SCH (08:59)
[2023-09-14] MEDS: OLANZAPINE 2.5 MG TABLET PO SCH ×3 (08:59→16:08)
[2023-09-14] MEDS: METFORMIN 500 MG TABLET PO SCH (08:59)
[2023-09-14] MEDS: OXCARBAZEPINE 150 MG TABLET PO SCH ×2 (08:59→16:08)
[2023-09-14] MEDS: Z GUARD REMEDY 4 OZ OINT TP SCH ×2 (09:09→21:26)
[2023-09-14 16:00] VITALS: BP 127/78; TEMP 97.8; O2SAT 97
[2023-09-14 20:00] VITALS: BP 92/59; TEMP 98.4; O2SAT 95
[2023-09-14] MEDS: OLANZAPINE 10 MG TABLET PO SCH (21:28)
[2023-09-14] MEDS: SIMVASTATIN 20 MG TABLET PO SCH (21:28)
[2023-09-15] MEDS: TEMAZEPAM 7.5 MG CAPSULE PO PRN (01:01)
[2023-09-15 08:00] VITALS: BP 124/84; TEMP 97.9; O2SAT 94
[2023-09-15] MEDS: SPIRONOLACTONE 25 MG TABLET PO SCH (08:59)
[2023-09-15] MEDS: OLANZAPINE 2.5 MG TABLET PO SCH ×3 (08:59→16:19)
[2023-09-15] MEDS: DOCUSATE SODIUM 100 MG CAPSULE PO SCH ×2 (08:59→16:19)
[2023-09-15] MEDS: OXCARBAZEPINE 150 MG TABLET PO SCH ×2 (08:59→16:19)
[2023-09-15] MEDS: FAMOTIDINE (20 MG) 20 MG TABLET PO SCH ×2 (08:59→16:19)
[2023-09-15] MEDS: METFORMIN 500 MG TABLET PO SCH (08:59)
[2023-09-15] MEDS: ASPIRIN 81 MG TAB.CHEW PO SCH (08:59)
[2023-09-15] MEDS: CARVEDILOL 3.125 MG TABLET PO SCH ×2 (09:00→16:19)
[2023-09-15] MEDS: Z GUARD REMEDY 4 OZ OINT TP SCH ×2 (09:01→21:23)
[2023-09-15] MEDS: SULFAMETH/TRIMETH 800/160 MG 1 UDTAB TABLET PO SCH ×2 (09:05→21:22)
[2023-09-15 16:00] VITALS: BP 128/86; TEMP 97.9; O2SAT 98
[2023-09-15 20:00] VITALS: BP 120/75; TEMP 98; O2SAT 95
[2023-09-15] MEDS: OLANZAPINE 10 MG TABLET PO SCH (21:23)
[2023-09-15] MEDS: SIMVASTATIN 20 MG TABLET PO SCH (21:23)
[2023-09-15] MEDS: LORAZEPAM 0.5 MG TABLET PO PRN (23:51)
[2023-09-16 08:00] VITALS: BP 124/88; TEMP 98.4; O2SAT 98
[2023-09-16] MEDS: METFORMIN 500 MG TABLET PO SCH (09:09)
[2023-09-16] MEDS: OLANZAPINE 2.5 MG TABLET PO SCH ×3 (09:09→16:13)
[2023-09-16] MEDS: CARVEDILOL 3.125 MG TABLET PO SCH ×2 (09:09→16:14)
[2023-09-16] MEDS: SULFAMETH/TRIMETH 800/160 MG 1 UDTAB TABLET PO SCH ×2 (09:09→20:14)
[2023-09-16] MEDS: OXCARBAZEPINE 150 MG TABLET PO SCH ×2 (09:09→16:13)
[2023-09-16] MEDS: FAMOTIDINE (20 MG) 20 MG TABLET PO SCH ×2 (09:09→16:13)
[2023-09-16] MEDS: DOCUSATE SODIUM 100 MG CAPSULE PO SCH ×2 (09:09→16:13)
[2023-09-16] MEDS: SPIRONOLACTONE 25 MG TABLET PO SCH (09:09)
[2023-09-16] MEDS: ASPIRIN 81 MG TAB.CHEW PO SCH (09:09)
[2023-09-16] MEDS: Z GUARD REMEDY 4 OZ OINT TP SCH ×2 (09:10→20:14)
[2023-09-16] MEDS ORDERED: VASCULERA PO (14:12)
[2023-09-16] MEDS ORDERED: LATA2.5D2 EACHEYE (14:31)
[2023-09-16 16:00] VITALS: BP 131/84; TEMP 97.6; O2SAT 96
[2023-09-16] MEDS: CALCIUM CARB 600MG /VIT D 1 EACH TABLET PO SCH (16:13)
[2023-09-16] MEDS: ACETAMINOPHEN 325 MG TABLET PO PRN (19:31)
[2023-09-16 20:00] VITALS: BP 124/72; TEMP 98.2; O2SAT 96
[2023-09-16] MEDS: SIMVASTATIN 20 MG TABLET PO SCH (21:01)
[2023-09-16] MEDS: LATANOPROST EYE EACHEYE SCH (21:01)
[2023-09-16] MEDS: OLANZAPINE 10 MG TABLET PO SCH (21:01)
[2023-09-16] MEDS ORDERED: Medication Not On Formulary EA (Linaclotide (Linzess) 145 MCG) PO SCH (22:00)
[2023-09-16] MEDS: LORAZEPAM 0.5 MG TABLET PO PRN (22:48)
[2023-09-17] MEDS: TEMAZEPAM 7.5 MG CAPSULE PO PRN (00:13)
[2023-09-17 08:00] VITALS: BP 108/78; TEMP 97.6; O2SAT 98
[2023-09-17] MEDS ORDERED: LOSARTAN/HCTZ 50-12.5MG/ 1 EA TABLET PO SCH (09:00)
[2023-09-17] MEDS: HYDROCHLOROTHIAZIDE 25 MG TABLET PO SCH (09:00)
[2023-09-17] MEDS: LOSARTAN POTASSIUM 50 MG TABLET PO SCH (09:00)
[2023-09-17] MEDS: CARVEDILOL 3.125 MG TABLET PO SCH ×2 (09:00→16:51)
[2023-09-17] MEDS: SPIRONOLACTONE 25 MG TABLET PO SCH (09:03)
[2023-09-17] MEDS: DOCUSATE SODIUM 100 MG CAPSULE PO SCH ×2 (09:04→16:49)
[2023-09-17] MEDS: ASPIRIN 81 MG TAB.CHEW PO SCH (09:04)
[2023-09-17] MEDS: FAMOTIDINE (20 MG) 20 MG TABLET PO SCH ×2 (09:04→16:49)
[2023-09-17] MEDS: SULFAMETH/TRIMETH 800/160 MG 1 UDTAB TABLET PO SCH ×2 (09:04→21:54)
[2023-09-17] MEDS: OXCARBAZEPINE 150 MG TABLET PO SCH ×2 (09:04→16:49)
[2023-09-17] MEDS: CALCIUM CARB 600MG /VIT D 1 EACH TABLET PO SCH ×2 (09:04→16:49)
[2023-09-17] MEDS: METFORMIN 500 MG TABLET PO SCH (09:04)
[2023-09-17] MEDS: Z GUARD REMEDY 4 OZ OINT TP SCH ×2 (09:05→22:12)
[2023-09-17] MEDS: OLANZAPINE 2.5 MG TABLET PO SCH ×3 (09:07→16:49)
[2023-09-17] MEDS: VASCULERA 630 MG PO SCH (09:08)
[2023-09-17 16:00] VITALS: BP 105/70; TEMP 97.7; O2SAT 99
[2023-09-17 20:45] VITALS: BP 113/70; TEMP 97.9; O2SAT 97
[2023-09-17] MEDS: SIMVASTATIN 20 MG TABLET PO SCH (21:57)
[2023-09-17] MEDS: OLANZAPINE 10 MG TABLET PO SCH (22:01)
[2023-09-17] MEDS: LATANOPROST EYE EACHEYE SCH (22:12)
[2023-09-18 08:00] VITALS: BP 126/87; TEMP 98.1; O2SAT 96
[2023-09-18] MEDS: Z GUARD REMEDY 4 OZ OINT TP SCH ×2 (09:00→21:40)
[2023-09-18] MEDS: SULFAMETH/TRIMETH 800/160 MG 1 UDTAB TABLET PO SCH ×2 (09:59→21:39)
[2023-09-18] MEDS: ASPIRIN 81 MG TAB.CHEW PO SCH (09:59)
[2023-09-18] MEDS: SPIRONOLACTONE 25 MG TABLET PO SCH (09:59)
[2023-09-18] MEDS: CALCIUM CARB 600MG /VIT D 1 EACH TABLET PO SCH ×2 (10:00→18:21)
[2023-09-18] MEDS: DOCUSATE SODIUM 100 MG CAPSULE PO SCH ×2 (10:01→17:00)
[2023-09-18] MEDS: LOSARTAN POTASSIUM 50 MG TABLET PO SCH (10:02)
[2023-09-18] MEDS: CARVEDILOL 3.125 MG TABLET PO SCH ×2 (10:02→18:22)
[2023-09-18] MEDS: FAMOTIDINE (20 MG) 20 MG TABLET PO SCH ×2 (10:03→18:21)
[2023-09-18] MEDS: METFORMIN 500 MG TABLET PO SCH (10:03)
[2023-09-18] MEDS: HYDROCHLOROTHIAZIDE 25 MG TABLET PO SCH (10:03)
[2023-09-18] MEDS: OLANZAPINE 2.5 MG TABLET PO SCH ×3 (10:04→18:21)
[2023-09-18] MEDS: ACETAMINOPHEN 325 MG TABLET PO PRN ×2 (10:04→23:46)
[2023-09-18] MEDS: OXCARBAZEPINE 150 MG TABLET PO SCH ×2 (10:04→18:21)
[2023-09-18] MEDS: VASCULERA 630 MG PO SCH (10:09)
[2023-09-18 16:00] VITALS: BP 112/71; TEMP 97.7; O2SAT 99
[2023-09-18] MEDS: GLUCERNA SHAKE 237 ML CAN PO SCH (17:00)
[2023-09-18] MEDS: ERGOCALCIFEROL (VITAMIN D 2) 50,000 UNIT CAPSULE PO SCH (18:21)
[2023-09-18 20:11] VITALS: BP 98/59; TEMP 97.3; O2SAT 98
[2023-09-18] MEDS: LATANOPROST EYE EACHEYE SCH (21:40)
[2023-09-18] MEDS: OLANZAPINE 10 MG TABLET PO SCH (21:41)
[2023-09-18] MEDS: SIMVASTATIN 20 MG TABLET PO SCH (21:41)
[2023-09-19] MEDS: TEMAZEPAM 7.5 MG CAPSULE PO PRN (01:24)
[2023-09-19] MEDS: LORAZEPAM 0.5 MG TABLET PO PRN (06:26)
[2023-09-19 08:00] VITALS: BP 111/56; TEMP 97.9; O2SAT 99
[2023-09-19] MEDS: OLANZAPINE 2.5 MG TABLET PO SCH ×3 (08:37→16:39)
[2023-09-19] MEDS: FAMOTIDINE (20 MG) 20 MG TABLET PO SCH ×2 (08:37→16:40)
[2023-09-19] MEDS: OXCARBAZEPINE 150 MG TABLET PO SCH ×2 (08:38→16:40)
[2023-09-19] MEDS: CALCIUM CARB 600MG /VIT D 1 EACH TABLET PO SCH ×2 (08:38→16:39)
[2023-09-19] MEDS: ASPIRIN 81 MG TAB.CHEW PO SCH (08:38)
[2023-09-19] MEDS: DOCUSATE SODIUM 100 MG CAPSULE PO SCH ×2 (08:38→16:39)
[2023-09-19] MEDS: SPIRONOLACTONE 25 MG TABLET PO SCH (08:40)
[2023-09-19] MEDS: CARVEDILOL 3.125 MG TABLET PO SCH ×2 (08:40→16:43)
[2023-09-19] MEDS: HYDROCHLOROTHIAZIDE 25 MG TABLET PO SCH (08:41)
[2023-09-19] MEDS: LOSARTAN POTASSIUM 50 MG TABLET PO SCH (08:41)
[2023-09-19] MEDS: METFORMIN 500 MG TABLET PO SCH (08:44)
[2023-09-19] MEDS: VASCULERA 630 MG PO SCH (08:57)
[2023-09-19] MEDS: Z GUARD REMEDY 4 OZ OINT TP SCH ×2 (08:57→21:10)
[2023-09-19] MEDS: SULFAMETH/TRIMETH 800/160 MG 1 UDTAB TABLET PO SCH ×2 (08:57→21:10)
[2023-09-19] MEDS: ACETAMINOPHEN 325 MG TABLET PO PRN (09:01)
[2023-09-19] MEDS: GLUCERNA SHAKE 237 ML CAN PO SCH ×2 (11:08→16:43)
[2023-09-19 16:00] VITALS: BP 122/68; TEMP 98; O2SAT 95
[2023-09-19 20:26] VITALS: BP 90/65; TEMP 98.2; O2SAT 95
[2023-09-19] MEDS: LATANOPROST EYE EACHEYE SCH (21:10)
[2023-09-19] MEDS: SIMVASTATIN 20 MG TABLET PO SCH (21:11)
[2023-09-19] MEDS: OLANZAPINE 10 MG TABLET PO SCH (21:11)
[2023-09-20 08:00] VITALS: BP 100/69; TEMP 98.6; O2SAT 98
[2023-09-20] MEDS: DOCUSATE SODIUM 100 MG CAPSULE PO SCH ×3 (08:31→17:24)
[2023-09-20] MEDS: OXCARBAZEPINE 150 MG TABLET PO SCH ×3 (08:31→17:24)
[2023-09-20] MEDS: CALCIUM CARB 600MG /VIT D 1 EACH TABLET PO SCH ×3 (08:32→17:24)
[2023-09-20] MEDS: CARVEDILOL 3.125 MG TABLET PO SCH ×3 (08:32→17:25)
[2023-09-20] MEDS: FAMOTIDINE (20 MG) 20 MG TABLET PO SCH ×3 (08:33→17:24)
[2023-09-20] MEDS: ASPIRIN 81 MG TAB.CHEW PO SCH ×2 (08:33→09:00)
[2023-09-20] MEDS: OLANZAPINE 2.5 MG TABLET PO SCH ×3 (08:33→13:40)
[2023-09-20] MEDS: HYDROCHLOROTHIAZIDE 25 MG TABLET PO SCH ×2 (08:33→09:00)
[2023-09-20] MEDS: LOSARTAN POTASSIUM 50 MG TABLET PO SCH ×2 (08:34→09:00)
[2023-09-20] MEDS: SPIRONOLACTONE 25 MG TABLET PO SCH ×2 (08:34→09:00)
[2023-09-20] MEDS: METFORMIN 500 MG TABLET PO SCH ×2 (08:34→09:00)
[2023-09-20] MEDS: SULFAMETH/TRIMETH 800/160 MG 1 UDTAB TABLET PO SCH (08:34)
[2023-09-20] MEDS: Z GUARD REMEDY 4 OZ OINT TP SCH ×2 (08:45→20:55)
[2023-09-20] MEDS: VASCULERA 630 MG PO SCH ×2 (08:45→09:00)
[2023-09-20] MEDS: GLUCERNA SHAKE 237 ML CAN PO SCH ×2 (08:46→17:25)
[2023-09-20] MEDS: ACETAMINOPHEN 325 MG TABLET PO PRN (15:49)
[2023-09-20 16:00] VITALS: BP 116/79; TEMP 98.1; O2SAT 99
[2023-09-20] MEDS: IBUPROFEN 600 MG TABLET PO PRN (20:15)
[2023-09-20 21:01] VITALS: BP 110/62; TEMP 97.8; O2SAT 94
[2023-09-20] MEDS: LATANOPROST EYE DROP 0.005% 2.5 ML BOTTLE EACHEYE SCH (22:36)
[2023-09-20] MEDS: OLANZAPINE 10 MG TABLET PO SCH (22:37)
[2023-09-20] MEDS: SIMVASTATIN 20 MG TABLET PO SCH (22:38)
[2023-09-21 08:00] VITALS: BP 117/63; TEMP 97.6; O2SAT 98
[2023-09-21] MEDS: GLUCERNA SHAKE 237 ML CAN PO SCH ×2 (08:00→17:04)
[2023-09-21] MEDS: SPIRONOLACTONE 25 MG TABLET PO SCH (09:10)
[2023-09-21] MEDS: HYDROCHLOROTHIAZIDE 25 MG TABLET PO SCH (09:14)
[2023-09-21] MEDS: CARVEDILOL 3.125 MG TABLET PO SCH ×2 (09:15→17:00)
[2023-09-21] MEDS: OLANZAPINE 2.5 MG TABLET PO SCH ×2 (09:15→16:57)
[2023-09-21] MEDS: LOSARTAN POTASSIUM 50 MG TABLET PO SCH (09:16)
[2023-09-21] MEDS: DOCUSATE SODIUM 100 MG CAPSULE PO SCH ×2 (09:16→16:57)
[2023-09-21] MEDS: METFORMIN 500 MG TABLET PO SCH (09:16)
[2023-09-21] MEDS: VASCULERA 630 MG PO SCH (09:17)
[2023-09-21] MEDS: OXCARBAZEPINE 150 MG TABLET PO SCH ×3 (09:17→16:58)
[2023-09-21] MEDS: CALCIUM CARB 600MG /VIT D 1 EACH TABLET PO SCH ×2 (09:18→16:57)
[2023-09-21] MEDS: ASPIRIN 81 MG TAB.CHEW PO SCH (09:18)
[2023-09-21] MEDS: FAMOTIDINE (20 MG) 20 MG TABLET PO SCH ×2 (09:18→16:57)
[2023-09-21] MEDS: Z GUARD REMEDY 4 OZ OINT TP SCH ×2 (09:28→21:22)
[2023-09-21] MEDS: IBUPROFEN 600 MG TABLET PO PRN (12:23)
[2023-09-21 16:00] VITALS: BP 96/67; TEMP 97.6; O2SAT 97
[2023-09-21] MEDS: LATANOPROST EYE DROP 0.005% 2.5 ML BOTTLE EACHEYE SCH (22:08)
[2023-09-21] MEDS: OLANZAPINE 10 MG TABLET PO SCH (22:22)
[2023-09-21] MEDS: SIMVASTATIN 20 MG TABLET PO SCH (22:22)
[2023-09-22 08:00] VITALS: BP 132/70; TEMP 97.8; O2SAT 96
[2023-09-22] MEDS: FAMOTIDINE (20 MG) 20 MG TABLET PO SCH ×2 (09:00→17:23)
[2023-09-22] MEDS: METFORMIN 500 MG TABLET PO SCH ×3 (09:00→17:25)
[2023-09-22] MEDS: ASPIRIN 81 MG TAB.CHEW PO SCH (09:00)
[2023-09-22] MEDS: DOCUSATE SODIUM 100 MG CAPSULE PO SCH ×2 (09:50→17:22)
[2023-09-22] MEDS: OLANZAPINE 2.5 MG TABLET PO SCH ×2 (09:50→17:24)
[2023-09-22] MEDS: LOSARTAN POTASSIUM 50 MG TABLET PO SCH (09:51)
[2023-09-22] MEDS: CALCIUM CARB 600MG /VIT D 1 EACH TABLET PO SCH ×2 (09:52→17:23)
[2023-09-22] MEDS: CARVEDILOL 3.125 MG TABLET PO SCH ×2 (09:52→17:00)
[2023-09-22] MEDS: HYDROCHLOROTHIAZIDE 25 MG TABLET PO SCH (09:53)
[2023-09-22] MEDS: OXCARBAZEPINE 150 MG TABLET PO SCH ×3 (09:54→17:24)
[2023-09-22] MEDS: SPIRONOLACTONE 25 MG TABLET PO SCH (09:54)
[2023-09-22] MEDS: GLUCERNA SHAKE 237 ML CAN PO SCH ×2 (10:26→17:29)
[2023-09-22] MEDS: VASCULERA 630 MG PO SCH (10:54)
[2023-09-22] MEDS: LORAZEPAM 0.5 MG TABLET PO PRN (11:47)
[2023-09-22] MEDS: OLANZAPINE ZYDIS 5 MG TAB.RAPDIS PO ONE ×2 (12:00→12:08)
[2023-09-22] MEDS: Z GUARD REMEDY 4 OZ OINT TP SCH ×2 (12:29→21:42)
[2023-09-22] MEDS ORDERED: OLANZAPINE 10 MG VIAL IM ONE (12:30)
[2023-09-22 16:00] VITALS: BP 90/55; TEMP 98; O2SAT 95
[2023-09-22 20:37] VITALS: BP 92/67; TEMP 98.3; O2SAT 98
[2023-09-22] MEDS: LATANOPROST EYE DROP 0.005% 2.5 ML BOTTLE EACHEYE SCH (21:42)
[2023-09-22] MEDS: OLANZAPINE 10 MG TABLET PO SCH (21:43)
[2023-09-22] MEDS: SIMVASTATIN 20 MG TABLET PO SCH (21:49)
[2023-09-22] MEDS: IBUPROFEN 600 MG TABLET PO PRN (23:37)
[2023-09-23 08:00] VITALS: BP 101/68; TEMP 98.4; O2SAT 98
[2023-09-23] MEDS: FAMOTIDINE (20 MG) 20 MG TABLET PO SCH ×2 (08:06→16:35)
[2023-09-23] MEDS: CALCIUM CARB 600MG /VIT D 1 EACH TABLET PO SCH ×2 (08:06→16:35)
[2023-09-23] MEDS: ASPIRIN 81 MG TAB.CHEW PO SCH (08:06)
[2023-09-23] MEDS: OLANZAPINE 2.5 MG TABLET PO SCH ×2 (08:07→16:35)
[2023-09-23] MEDS: METFORMIN 500 MG TABLET PO SCH ×2 (08:07→16:35)
[2023-09-23] MEDS: OXCARBAZEPINE 150 MG TABLET PO SCH ×3 (08:07→16:35)
[2023-09-23] MEDS: SPIRONOLACTONE 25 MG TABLET PO SCH (08:07)
[2023-09-23] MEDS: Z GUARD REMEDY 4 OZ OINT TP SCH ×2 (08:07→21:55)
[2023-09-23] MEDS: DOCUSATE SODIUM 100 MG CAPSULE PO SCH ×2 (08:08→16:35)
[2023-09-23] MEDS: VASCULERA 630 MG PO SCH (08:13)
[2023-09-23] MEDS: GLUCERNA SHAKE 237 ML CAN PO SCH ×2 (08:14→16:35)
[2023-09-23] MEDS: LOSARTAN POTASSIUM 50 MG TABLET PO SCH (08:15)
[2023-09-23] MEDS: CARVEDILOL 3.125 MG TABLET PO SCH ×2 (08:15→16:38)
[2023-09-23 16:00] VITALS: BP 98/70; TEMP 98; O2SAT 97
[2023-09-23 20:18] VITALS: BP 110/63; TEMP 98; O2SAT 95
[2023-09-23] MEDS: OLANZAPINE 10 MG TABLET PO SCH (22:37)
[2023-09-23] MEDS: SIMVASTATIN 20 MG TABLET PO SCH (22:38)
[2023-09-23] MEDS: LATANOPROST EYE DROP 0.005% 2.5 ML BOTTLE EACHEYE SCH (22:48)
[2023-09-24] MEDS: IBUPROFEN 600 MG TABLET PO PRN ×3 (02:30→17:50)
[2023-09-24 08:00] VITALS: BP 99/56; TEMP 97.8; O2SAT 95
[2023-09-24] MEDS: OXCARBAZEPINE 150 MG TABLET PO SCH ×3 (08:20→16:51)
[2023-09-24] MEDS: SPIRONOLACTONE 25 MG TABLET PO SCH (08:20)
[2023-09-24] MEDS: DOCUSATE SODIUM 100 MG CAPSULE PO SCH ×2 (08:20→16:51)
[2023-09-24] MEDS: METFORMIN 500 MG TABLET PO SCH ×2 (08:21→16:51)
[2023-09-24] MEDS: FAMOTIDINE (20 MG) 20 MG TABLET PO SCH ×2 (08:21→16:51)
[2023-09-24] MEDS: ASPIRIN 81 MG TAB.CHEW PO SCH (08:21)
[2023-09-24] MEDS: CALCIUM CARB 600MG /VIT D 1 EACH TABLET PO SCH ×2 (08:22→16:51)
[2023-09-24] MEDS: OLANZAPINE 2.5 MG TABLET PO SCH ×2 (08:22→16:51)
[2023-09-24] MEDS: CARVEDILOL 3.125 MG TABLET PO SCH ×2 (08:22→16:51)
[2023-09-24] MEDS: LOSARTAN POTASSIUM 50 MG TABLET PO SCH (08:23)
[2023-09-24] MEDS: Z GUARD REMEDY 4 OZ OINT TP SCH ×2 (08:24→21:10)
[2023-09-24] MEDS: GLUCERNA SHAKE 237 ML CAN PO SCH ×2 (08:24→16:52)
[2023-09-24] MEDS: VASCULERA 630 MG PO SCH (09:00)
[2023-09-24] MEDS: LORAZEPAM 0.5 MG TABLET PO PRN (13:18)
[2023-09-24 16:00] VITALS: BP 99/63; TEMP 98; O2SAT 94
[2023-09-24 20:37] VITALS: BP 94/64; TEMP 98.1; O2SAT 97
[2023-09-24] MEDS: LATANOPROST EYE DROP 0.005% 2.5 ML BOTTLE EACHEYE SCH (21:10)
[2023-09-24] MEDS: OLANZAPINE 10 MG TABLET PO SCH (21:11)
[2023-09-24] MEDS: SIMVASTATIN 20 MG TABLET PO SCH (21:12)
[2023-09-24] MEDS: TEMAZEPAM 7.5 MG CAPSULE PO PRN (23:43)
[2023-09-25 07:34] LABS: BASOPHILS % (AUTO) 0.8 % (0.0-2.0); EOSINOPHILS # (AUTO) 0.2 K/uL (0.0-0.7); EOSINOPHILS % (AUTO) 2.8 % (0.0-6.0); HEMATOCRIT 34 % (33-45); HEMOGLOBIN 11.5 g/dL (11.5-14.8); LYMPHOCYTES # (AUTO) 1.4 K/uL (0.8-4.8); LYMPHOCYTES % (AUTO) 23.3 % (20.0-44.0); MEAN CORPUSCULAR HEMOGLOBIN 32 PG (26.0-33.0); MEAN CORPUSCULAR HGB CONC 34 g/dl (31.0-36.0); MEAN CORPUSCULAR VOLUME 94 fL (82-100); MONOCYTES # (AUTO) 0.3 K/uL (0.1-1.30); MONOCYTES % (AUTO) 5.4 % (2.0-12.0); NEUTROPHILS % (AUTO) 67.7 % (43.0-81.0); PLATELET COUNT (AUTO) 251 K/uL (150-450); RED BLOOD CELL COUNT(AUTO) 3.61 MIL/uL (4.0-5.2); RED CELL DISTRIBUTION WIDTH 13.5 % (11.5-15.0)
[2023-09-25 07:47] LABS: ALBUMIN 3.4 g/dL (3.4-5.0); BILIRUBIN,TOTAL 0.2 mg/dL (0.2-1.0); CALCIUM, SERUM 8.8 mg/dL (8.5-10.1); CREATININE 0.7 mg/dL (0.6-1.3); POTASSIUM 3.9 mmol/L (3.5-5.1); TOTAL PROTEIN, SERUM 6.8 g/dL (6.4-8.2)
[2023-09-25] MEDS: IBUPROFEN 600 MG TABLET PO PRN ×2 (07:48→13:51)
[2023-09-25 08:00] VITALS: BP 115/69; TEMP 97.9; O2SAT 97
[2023-09-25] MEDS: OXCARBAZEPINE 150 MG TABLET PO SCH ×3 (08:31→17:14)
[2023-09-25] MEDS: ASPIRIN 81 MG TAB.CHEW PO SCH (08:31)
[2023-09-25] MEDS: SPIRONOLACTONE 25 MG TABLET PO SCH (08:31)
[2023-09-25] MEDS: LOSARTAN POTASSIUM 50 MG TABLET PO SCH (08:31)
[2023-09-25] MEDS: CALCIUM CARB 600MG /VIT D 1 EACH TABLET PO SCH ×2 (08:31→17:14)
[2023-09-25] MEDS: ERGOCALCIFEROL (VITAMIN D 2) 50,000 UNIT CAPSULE PO SCH (08:31)
[2023-09-25] MEDS: DOCUSATE SODIUM 100 MG CAPSULE PO SCH ×2 (08:32→17:15)
[2023-09-25] MEDS: OLANZAPINE 2.5 MG TABLET PO SCH ×2 (08:32→17:15)
[2023-09-25] MEDS: METFORMIN 500 MG TABLET PO SCH ×2 (08:32→17:15)
[2023-09-25] MEDS: FAMOTIDINE (20 MG) 20 MG TABLET PO SCH ×2 (08:32→17:15)
[2023-09-25] MEDS: VASCULERA 630 MG PO SCH (08:33)
[2023-09-25] MEDS: CARVEDILOL 3.125 MG TABLET PO SCH ×2 (08:33→17:15)
[2023-09-25] MEDS: Z GUARD REMEDY 4 OZ OINT TP SCH ×2 (08:34→20:22)
[2023-09-25] MEDS: GLUCERNA SHAKE 237 ML CAN PO SCH ×2 (08:34→17:16)
[2023-09-25] MEDS: LORAZEPAM 0.5 MG TABLET PO PRN (11:23)
[2023-09-25] MEDS: ACETAMINOPHEN 325 MG TABLET PO PRN (11:23)
[2023-09-25 16:00] VITALS: BP 112/77; TEMP 97.3; O2SAT 96
[2023-09-25 20:59] VITALS: BP 123/76; TEMP 98.2; O2SAT 96
[2023-09-25] MEDS: LATANOPROST EYE DROP 0.005% 2.5 ML BOTTLE EACHEYE SCH (21:23)
[2023-09-25] MEDS: OLANZAPINE 10 MG TABLET PO SCH (21:24)
[2023-09-25] MEDS: SIMVASTATIN 20 MG TABLET PO SCH (21:25)
[2023-09-25] MEDS: TEMAZEPAM 7.5 MG CAPSULE PO PRN (22:05)
[2023-09-26] MEDS: GLUCERNA SHAKE 237 ML CAN PO SCH (07:48)
[2023-09-26 08:00] VITALS: BP 146/74; TEMP 97.8; O2SAT 96
[2023-09-26] MEDS: DOCUSATE SODIUM 100 MG CAPSULE PO SCH (08:33)
[2023-09-26] MEDS: METFORMIN 500 MG TABLET PO SCH (08:33)
[2023-09-26] MEDS: OLANZAPINE 2.5 MG TABLET PO SCH (08:33)
[2023-09-26] MEDS: SPIRONOLACTONE 25 MG TABLET PO SCH (08:33)
[2023-09-26] MEDS: OXCARBAZEPINE 150 MG TABLET PO SCH ×2 (08:33→12:33)
[2023-09-26 08:34] VITALS: BP 146/74
[2023-09-26] MEDS: CARVEDILOL 3.125 MG TABLET PO SCH (08:34)
[2023-09-26] MEDS: LOSARTAN POTASSIUM 50 MG TABLET PO SCH (08:34)
[2023-09-26] MEDS: ASPIRIN 81 MG TAB.CHEW PO SCH (08:34)
[2023-09-26] MEDS: FAMOTIDINE (20 MG) 20 MG TABLET PO SCH (08:34)
[2023-09-26] MEDS: CALCIUM CARB 600MG /VIT D 1 EACH TABLET PO SCH (08:35)
[2023-09-26] MEDS: Z GUARD REMEDY 4 OZ OINT TP SCH (08:35)
[2023-09-26] MEDS: VASCULERA 630 MG PO SCH (08:36)
[2023-09-26] MEDS: IBUPROFEN 600 MG TABLET PO PRN (13:08)
== END 2023-09-26 13:49 | DRG 885 ==
LOC: ER 19:10 → GPS 09-11 03:07
PROVIDERS: ADMIT Psychiatry & Neurology Psychosomatic Medicine; ATTEND Internal Medicine
DX: F25.0 Schizoaffective disorder, bipolar type (principal); D68.59 Other primary thrombophilia; R45.851 Suicidal ideations; S42.212A Unspecified displaced fracture of surgical neck of left humerus, initial encounter for closed fracture; F29 Unspecified psychosis not due to a substance or known physiological condition; E03.9 Hypothyroidism, unspecified; K21.9 Gastro-esophageal reflux disease without esophagitis; F60.3 Borderline personality disorder; R41.9 Unspecified symptoms and signs involving cognitive functions and awareness; E78.5 Hyperlipidemia, unspecified; E11.9 Type 2 diabetes mellitus without complications; Z96.641 Presence of right artificial hip joint; Z79.82 Long term (current) use of aspirin; Z79.899 Other long term (current) drug therapy; Z79.84 Long term (current) use of oral hypoglycemic drugs; I11.9 Hypertensive heart disease without heart failure; E66.01 Morbid (severe) obesity due to excess calories; Z73.6 Limitation of activities due to disability; R53.1 Weakness; R27.8 Other lack of coordination; Z91.81 History of falling; F41.9 Anxiety disorder, unspecified; F32.A Depression, unspecified; W19.XXXA Unspecified fall, initial encounter; Y92.9 Unspecified place or not applicable; Z91.51 Personal history of suicidal behavior; Z87.440 Personal history of urinary (tract) infections
CPT/HCPCS: 36415; 73030-TC; 73610-TC; 80048-TC; 80053-TC; 80061-TC; 80076-TC; 81001; 82962-TC; 85025-TC; 87081-TC; 87086-TC; 93971-TC; 97110-TC; 97112-TC; 97116-TC; 97530-TC; 97535-TC; C9803; G0480; J3490